=== PATIENT | male | born 1960 | race Caucasian/White ===

== ENCOUNTER → 2017-02-16 | Outpatient (CLI) | payer BC ==
[~2017-02-16] MED LIST: ACT/45 PO; ALLOPOW4 PO; AMIT50TA3 PO; ASPI81TA28 PO; ATOR-22 PO; CILO100T PO; CILO100T15 PO; GABA800T2 PO; GLC/500 PO; GLIM2TAB PO; METF1000 PO; METO-452 PO; METO50TA7 PO; MULTTAB PO; OMEP20TA PO; OXYC1TAB3 PO; SENNTAB23 PO
--- NOTE | 2017-02-16 09:47 | DIAGNOSTIC IMAGING REPORT ---
TWO VIEW CHEST CLINICAL HISTORY: Pneumonia. FINDINGS: PA and lateral chest radiographs are compared to study dated 09/04/2012. The cardiomediastinal silhouette is unremarkable. The lungs and pleural spaces are clear. There is no pneumothorax. The bony thorax appears intact. Degenerative change is noted throughout the thoracic spine. IMPRESSION: No active disease in the chest. Electronically signed by: Clyde White M.D. 02/16/2017 9:45 AM Dictated Date/Time: 02/16/2017 9:45 AM
== END | disposition home or self-care (01) ==
LOC: C.RAD1850 09:23
PROVIDERS: ATTEND Family Medicine
DX: J18.9 Pneumonia, unspecified organism (principal)

== ENCOUNTER 2017-03-21 11:57 | Emergency (ER) | payer OTHER, BC ==
[~2017-03-21] VITALS: Ht 177.8 cm; Wt 100.0 kg
[~2017-03-21 11:57] MED LIST changes: -ACT/45 PO; -ASPI81TA28 PO; -CILO100T PO; -GLC/500 PO; -METF1000 PO; -METO50TA7 PO; -OXYC1TAB3 PO; -SENNTAB23 PO
[2017-03-21 11:59] VITALS: TEMP 36.9; Ht 177.8 cm; Wt 100.0 kg
[2017-03-21] MEDS ORDERED: METO50TA7 PO (12:12)
[2017-03-21] MEDS ORDERED: CILO100T PO (12:12)
[2017-03-21] MEDS ORDERED: ACETAMINOPHEN 500 MG TAB PO STA (12:28)
[2017-03-21] MEDS ORDERED: GLC/500 PO (12:41)
[2017-03-21] MEDS ORDERED: SODIUM CHLORIDE 0.9% 1000ML 1,000 ML IV STA (13:08)
[2017-03-21] MEDS ORDERED: MoRPHine SULFATE 4 MG/ML 1 ML CARP\\VIAL IV STA (13:12)
[2017-03-21 13:40] VITALS: O2SAT 95
[2017-03-21 13:43] LABS: BASO % 0.2 %; BASO ABS # 0.03 K/uL (0-0.2); COMPLETE YES; HEMATOCRIT 40.7 % (42-52); IG% 0.4 %; LYMPH % 12.9 %; LYMPH ABS # 1.82 K/uL (1.2-3.4); MEAN CELL VOLUME 94.2 fL (80-100); MEAN CORPUSCULAR HEMOGLOBIN 33.3 pg (25-34); MEAN CORPUSCULAR HGB CONC 35.4 g/dl (32-36); MEAN PLATELET VOLUME 9.8 fL (7.4-10.4); MONO % 5.6 %; NEUT % 79.9 %; PLATELET COUNT 256 K/uL (130-400); RED BLOOD COUNT 4.32 M/uL (4.7-6.1); WHITE BLOOD COUNT 14.13 K/uL (4.8-10.8)
[2017-03-21 14:05] LABS: CALCIUM 8.5 mg/dl (8.5-10.1)
[2017-03-21 14:11] LABS: ALT/SGPT 38 U/L (12-78); BLOOD UREA NITROGEN 15 mg/dl (7-18); CARBON DIOXIDE 25 mmol/L (21-32); CHLORIDE 107 mmol/L (98-107); GLUCOSE 116 mg/dl (70-99); POTASSIUM 3.9 mmol/L (3.5-5.1); SODIUM 140 mmol/L (136-145)
[2017-03-21 14:16] LABS: ALKALINE PHOSPHATASE 53 U/L (45-117); AST/SGOT 31 U/L (15-37)
--- NOTE | 2017-03-21 14:45 | DIAGNOSTIC IMAGING REPORT ---
RIGHT ELBOW MIN 3 VIEWS ROUTINE CLINICAL HISTORY: fall, eval trauma Right trauma. Pain. COMPARISON: None. DISCUSSION: The bones and joint spaces appear intact. There is no evidence of fracture, dislocation or bony disease. There is no evidence for soft tissue swelling. IMPRESSION: Negative study. Electronically signed by: Geronimo Beebe M.D. 03/21/2017 2:43 PM Dictated Date/Time: 03/21/2017 2:43 PM
--- NOTE | 2017-03-21 14:47 | DIAGNOSTIC IMAGING REPORT ---
CHEST 2 VIEWS ROUTINE CLINICAL HISTORY: right rib pain, fall, eval trauma/rib fx trauma. Pain. COMPARISON STUDY: 02/16/2017 FINDINGS: Fracture right fifth rib. Fracture left sixth rib. No evidence of pneumothorax. Diaphragms are smooth. Moderate degenerative change thoracic spine. IMPRESSION: 1. Fracture right fifth rib. 2. Fracture left sixth rib. 3. No evidence for pneumothorax Electronically signed by: Geronimo Beebe M.D. 03/21/2017 2:46 PM Dictated Date/Time: 03/21/2017 2:44 PM
--- NOTE | 2017-03-21 14:50 | DIAGNOSTIC IMAGING REPORT ---
RIGHT SHOULDER 3 VIEWS HISTORY: Right shoulder pain. fall, eval trauma Right COMPARISON: Right shoulder 01/24/2016. FINDINGS: No fracture or dislocation within the right shoulder. The right clavicle is intact. There is a mild displaced right lateral fifth rib fracture. No right-sided pneumothorax identified. Soft tissues are unremarkable. No radiopaque foreign bodies. IMPRESSION: 1. No acute fracture or dislocation within the right shoulder. 2. Mildly displaced right lateral fifth rib fracture Electronically signed by: Pierre Javier M.D. 03/21/2017 2:49 PM Dictated Date/Time: 03/21/2017 2:42 PM
[2017-03-21 15:08] LABS: URINE APPEARANCE CLEAR (CLEAR); URINE BILIRUBIN NEG (NEG); URINE COLOR YELLOW; URINE NITRITE NEG (NEG); URINE SPECIFIC GRAVITY 1.019 (1.000-1.030); UROBILINOGEN NEG (NEG)
[2017-03-21 15:18] LABS: MANUAL MICROSCOPIC REQUIRED? NO; REVIEW REQ? NO
--- NOTE | 2017-03-21 15:55 | EMERGENCY ROOM VISIT NOTE ---
History First contact with patient: 12:12 Chief Complaint: FALL Stated Complaint: FELL OF LADDER,SHOULDER,RIB,BACK PAIN-WORK RELATED History of Present Illness The patient is a 56 year old male who presents to the Emergency Room with complaints of right-sided chest wall pain after a fall earlier today. Patient was up on a ladder at work, when he lost his balance and fell, approximately 5- 6 feet, striking his right side on a countertop, and then landing on top of the ladder on the floor. Patient was initially seen by another provider after his injury, who referred him to the emergency department to possibly have CT scans done. Patient reports his primary area of pain is the right side of his chest and middle back, he has associated shortness of breath and increased pain with taking a deep breath. He denies hitting his head, denies loss of consciousness , denies neck pain, denies abdominal pain, denies nausea/vomiting, denies dysuria or hematuria. He has not taken any medications for the pain prior to arrival. Review of Systems A complete 10 point review of systems was reviewed with the patient with pertinent positives and negatives as per history of present illness. All else were negative. Past Medical/Surgical History Medical Problems: (1) Benign hypertension (2) Diabetes mellitus Social History Smoking Status: Current Every Day Smoker Drug Use: none Marital Status: Housing Status: lives with significant other Occupation Status: employed Current/Historical Medications Scheduled Amitriptyline Hcl (Amitriptyline Hcl), 50 MG PO HS Atorvastatin (Lipitor), 20 MG PO HS Cilostazol (Pletal), 100 MG PO BID Gabapentin (Neurontin), 800 MG PO TID Glimepiride (Amaryl), 2 MG PO QAM Metformin Hcl (Glucophage), Unknown Dose PO BID Metoprolol Succ (Toprol Xl) (Toprol-Xl), 50 MG PO DAILY Omeprazole (Omeprazole), 20 MG PO DAILY Scheduled PRN Oxycodone Ir (Roxicodone Ir), 1-2 TAB PO Q6H PRN for Severe Pain Allergies Coded Allergies: Sulfamethoxazole w/Trimethoprim (Unverified Allergy, Severe, RASH, 03/21/17 ) Penicillins (Unverified Allergy, Unknown, ., 03/21/17) Physical Exam Vital Signs Date Time Temp Pulse Resp B/P (MAP) Pulse Ox O2 Delivery O2 Flow Rate FiO2 03/21/17 17:43 86 20 148/91 96 03/21/17 16:10 80 17 145/68 97 Room Air 03/21/17 13:51 81 18 142/71 97 Room Air 03/21/17 13:44 78 03/21/17 13:40 95 Room Air 03/21/17 13:40 95 Room Air 03/21/17 11:59 36.9 103 17 145/83 95 Room Air Physical Exam CONSTITUTIONAL: No acute distress, but appears to be in discomfort. Well appearing and well nourished. Alert and oriented X 4 with normal affect. HEENT: Normocephalic, atraumatic. Pupils equal, round and reactive to light, EOMI. TMs normal. Pharynx normal. Moist mucous membranes NECK: Supple, full active range of motion without discomfort. No midline tenderness to palpation of the cervical spine, no step-offs. RESPIRATORY: Clear to auscultation bilaterally with no wheezing, crackles, rhonchi or stridor. Equal expansion bilaterally. CARDIOVASCULAR: Regular rate and rhythm with no murmurs, rubs or gallops. Normal peripheral perfusion. No edema. CHEST WALL: Tenderness to palpation of the right chest wall diffusely, particularly the mid lateral chest wall. Tenderness to the sternum with palpation. No ecchymosis, no abrasions, no crepitus, no palpable rib fractures. GASTROINTESTINAL: Soft, tender to palpation bilateral upper quadrants, as well as diffuse generalized tenderness to the entire abdomen, no ecchymosis or abrasions noted to the abdominal wall, nondistended. Bowel sounds present in all quadrants. MUSCULOSKELETAL: Full range of motion of all joints without discomfort. Abrasion and tenderness over the right elbow, tenderness and abrasions to the right shoulder. INTEGUMENTARY: No rash or other significant dermatologic conditions noted. NEUROLOGIC: Cranial nerves II-XII grossly intact. No focal neurologic deficits noted. Normal motor function, normal sensation, normal speech, normal coordination, normal gait Medical Decision & Procedures ER Provider Diagnostic Interpretation: RIGHT SHOULDER 3 VIEWS HISTORY: Right shoulder pain. fall, eval trauma Right COMPARISON: Right shoulder 01/24/2016. FINDINGS: No fracture or dislocation within the right shoulder. The right clavicle is intact. There is a mild displaced right lateral fifth rib fracture. No right-sided pneumothorax identified. Soft tissues are unremarkable. No radiopaque foreign bodies. IMPRESSION: 1. No acute fracture or dislocation within the right shoulder. ----- RIGHT ELBOW MIN 3 VIEWS ROUTINE CLINICAL HISTORY: fall, eval trauma Right trauma. Pain. COMPARISON: None. DISCUSSION: The bones and joint spaces appear intact. There is no evidence of fracture, dislocation or bony disease. There is no evidence for soft tissue swelling. IMPRESSION: Negative study. ----- CHEST 2 VIEWS ROUTINE CLINICAL HISTORY: right rib pain, fall, eval trauma/rib fx trauma. Pain. COMPARISON STUDY: 02/16/2017 FINDINGS: Fracture right fifth rib. Fracture left sixth rib. No evidence of pneumothorax. Diaphragms are smooth. Moderate degenerative change thoracic spine. IMPRESSION: 1. Fracture right fifth rib. 2. Fracture left sixth rib. 3. No evidence for pneumothorax ------ ABDOMEN AND PELVIS CT WITH IV CONTRAST CT DOSE: HISTORY: right flank pain, abd pain, fall, eval trauma TECHNIQUE: Multiaxial CT images of the abdomen and pelvis were performed following the use of intravenous contrast. COMPARISON STUDY: None. FINDINGS: No pneumoperitoneum. No pneumatosis. Bilateral L5 spondylolysis with associated grade I anterolisthesis. Nondisplaced right lateral ninth rib fracture. The liver, spleen, adrenal glands, gallbladder, spleen, and kidneys are unremarkable. Moderate calcified plaque within the abdominal aorta and iliac arteries. Bladder is mildly distended. No bowel wall thickening or obstruction. Colonic diverticulosis. Normal appendix. IMPRESSION: Nondisplaced right lateral ninth rib fracture. No additional acute traumatic abnormalities within the abdomen or pelvis. ----- Final read of the chest CT faxed over and reviewed by myself, confirms fractures of the right fifth and ninth ribs, no evidence of mediastinal injury, no evidence of pneumothorax. Incidentally noted low suspicion clustered solid right upper lobe pulmonary nodules, the largest of which measures 3 mm in a low risk patient, no further follow-up is indicated. Laboratory Results 03/21/17 13:25 Red Blood Count 4.32, Mean Corpuscular Volume 94.2, Mean Corpuscular Hemoglobin 33.3, Mean Corpuscular Hemoglobin Concent 35.4, Mean Platelet Volume 9.8, Neutrophils (%) (Auto) 79.9, Lymphocytes (%) (Auto) 12.9, Monocytes (%) (Auto) 5.6, Eosinophils (%) (Auto) 1.0, Basophils (%) (Auto) 0.2, Neutrophils # (Auto) 11.30, Lymphocytes # (Auto) 1.82, Monocytes # (Auto) 0.79, Eosinophils # (Auto) 0.14, Basophils # (Auto) 0.03 03/21/17 13:25 Test 03/21/17 13:25 03/21/17 13:29 03/21/17 14:43 White Blood Count 14.13 K/uL (4.8-10.8) Red Blood Count 4.32 M/uL (4.7-6.1) Hemoglobin 14.4 g/dL (14.0-18.0) Hematocrit 40.7 % (42-52) Mean Corpuscular Volume 94.2 fL (80-100) Mean Corpuscular Hemoglobin 33.3 pg (25-34) Mean Corpuscular Hemoglobin Concent 35.4 g/dl (32-36) Platelet Count 256 K/uL (130-400) Mean Platelet Volume 9.8 fL (7.4-10.4) Neutrophils (%) (Auto) 79.9 % Lymphocytes (%) (Auto) 12.9 % Monocytes (%) (Auto) 5.6 % Eosinophils (%) (Auto) 1.0 % Basophils (%) (Auto) 0.2 % Neutrophils # (Auto) 11.30 K/uL (1.4-6.5) Lymphocytes # (Auto) 1.82 K/uL (1.2-3.4) Monocytes # (Auto) 0.79 K/uL (0.11-0.59) Eosinophils # (Auto) 0.14 K/uL (0-0.5) Basophils # (Auto) 0.03 K/uL (0-0.2) RDW Standard Deviation 43.8 fL (36.4-46.3) RDW Coefficient of Variation 12.8 % (11.5-14.5) Immature Granulocyte % (Auto) 0.4 % Immature Granulocyte # (Auto) 0.05 K/uL (0.00-0.02) Est Creatinine Clear Calc Drug Dose 69.8 ml/min Estimated GFR () 64.6 Estimated GFR (Non- 55.8 BUN/Creatinine Ratio 11.0 (10-20) Calcium Level 8.5 mg/dl (8.5-10.1) Total Bilirubin 0.3 mg/dl (0.2-1) Direct Bilirubin < 0.1 mg/dl (0-0.2) Aspartate Amino Transf (AST/SGOT) 31 U/L (15-37) Alanine Aminotransferase (ALT/SGPT) 38 U/L (12-78) Alkaline Phosphatase 53 U/L (45-117) Troponin I < 0.015 ng/ml (0-0.045) Total Protein 6.9 gm/dl (6.4-8.2) Albumin 3.7 gm/dl (3.4-5.0) Bedside Hemoglobin 14.3 g/dl (14.0-18.0) Bedside Hematocrit 42 % (42-52) Bedside Sodium 141 mEq/L (135-144) Bedside Potassium 4.2 mEq/L (3.3-5.0) Bedside Chloride 101 mEq/L (101-112) Bedside Total CO2 27 mEq/l (24-31) Anion Gap 18.0 mmol/L (16-25) Bedside Blood Urea Nitrogen 16 mg/dl (7-18) Bedside Creatinine 1.3 mg/dl (0.6-1.3) Bedside Glucose (other) 122 mg/dl (70-99) Bedside Ionized Calcium (Michelle) 1.20 mmol/l (1.12-1.32) Urine Color YELLOW Urine Appearance CLEAR (CLEAR) Urine pH 5.0 (4.5-7.5) Urine Specific [place] 1.019 (1.000-1.030) Urine Protein 2+ (NEG) Urine Glucose (UA) NEG (NEG) Urine Ketones NEG (NEG) Urine Occult Blood NEG (NEG) Urine Nitrite NEG (NEG) Urine Bilirubin NEG (NEG) Urine Urobilinogen NEG (NEG) Urine Leukocyte Esterase NEG (NEG) Urine WBC (Auto) 1-5 /hpf (0-5) Urine RBC (Auto) 0-4 /hpf (0-4) Urine Hyaline Casts (Auto) 1-5 /lpf (0-5) Urine Epithelial Cells (Auto) 5-10 /lpf (0-5) Urine Bacteria (Auto) NEG (NEG) Medications Administered Medications (Trade) Dose Ordered Sig/Jessica Route Start Time Stop Time Status Last Admin Dose Admin Acetaminophen (Tylenol Tab) 1,000 mg NOW STAT PO 03/21/17 12:28 03/21/17 12:30 DC 03/21/17 12:37 1,000 MG Sodium Chloride 1,000 ml @ 999 mls/hr Q1H1M STAT IV 03/21/17 13:08 03/21/17 14:08 DC 03/21/17 13:57 999 MLS/HR Morphine Sulfate (MoRPHine SULFATE INJ) 4 mg NOW STAT IV 03/21/17 13:12 03/21/17 13:13 DC 03/21/17 13:58 4 MG Morphine Sulfate (MoRPHine SULFATE INJ) 6 mg NOW STAT IV 03/21/17 16:40 03/21/17 16:41 DC 03/21/17 16:46 6 MG Oxycodone/ Acetaminophen (Percocet 5-325mg Tab) 2 tab NOW ONCE PO 03/21/17 17:30 03/21/17 17:31 DC 03/21/17 17:39 2 TAB Medical Decision CC: Patient presenting with complaint of right-sided chest wall pain Interpretation of Labs: Leukocytosis, no anemia, no significant joint abnormalities, renal function at baseline compared to previous labs, liver enzymes within normal limits, no gross hematuria or UTI. Differential Diagnosis: Includes, but not limited to rib fractures, chest wall contusion, pulmonary contusion, pneumothorax, hemothorax, intra-abdominal hemorrhage due to trauma, among others. Medication Reconciliation: I attest that I have personally reviewed the patient' s current medication list. Vital signs review: I reviewed the patient's vital signs and interpret them as follows: T: Afebrile; BP: Hypertensive; HR: Mildly tachycardic initially, improved after IV hydration; RR: Within normal limits; Pulse Ox: Within normal limits on room air. Blood pressure screening: The patient was found to have an elevated blood pressure and was referred to their primary doctor for recheck and further treatment. Summary: Patient was evaluated at bedside, history of physical exam performed. Patient initially evaluated in room D6, after evaluation, determined a trauma workup was necessary and patient was transferred to room A11. Patient is alert and oriented, no acute distress but does appear uncomfortable and in pain, holding his right side. Neurologic exam is normal with no focal deficits. Head to toe exam reveals significant right-sided chest wall tenderness to palpation, sternal tenderness, and bilateral upper quadrant abdominal tenderness with diffuse abdominal discomfort to palpation. Vital signs reviewed, mild tachycardia, normotensive and oxygen saturations within normal limits on room air. Orders were placed at bedside for labs, UA, IV fluids, CT of the chest/abdomen/ pelvis as well as plain images to evaluate for trauma. Patient discussed with Dr. Padilla, who agrees with my assessment and plan. Labs reviewed, leukocytosis most likely secondary to trauma. No other significant abnormalities noted. X-rays of the shoulder and elbow reviewed, no acute abnormalities. Chest x-ray shows bilateral rib fractures, this is confirmed with CT imaging. No other significant traumatic injuries noted. Patient with right fifth and ninth rib fracture and left sixth rib fracture. Pain improving with IV pain medications, and he was given Percocet prior to discharge. Patient was instructed to follow closely with his PCP and Workmen's Compensation for continued management of his rib fracture pain. Prescription for oxycodone was provided to patient and he was instructed on its use and precautions. Patient reassessed multiple times throughout ED stay, he remained stable and improved, pain improved with medication. Patient was discharged home in stable condition and ambulatory. Impression Primary Impression: Multiple fractures of ribs of both sides Departure Information Dispostion Home / Self-Care Condition GOOD Prescriptions Oxycodone Ir (Roxicodone Ir) 5 Mg Tab 1-2 TAB PO Q6H Y for Severe Pain for 3 Days, #24 TAB Prov: Sabi Quigley CRNP 03/21/17 Referrals Herrera Galloway MD (PCP) Patient Instructions ED Fx Rib, My [facility] Additional Instructions You have been treated in the Emergency Department for Rib Fractures after a fall. You have received pain medicine in the emergency department which impairs your ability to operate a vehicle. It is illegal for you to drive after receiving these medicines. You have been prescribed Oxycodone to be used for pain control. This is a narcotic medication. You cannot drive or consume alcohol while on this medicine. This medicine should only be used for pain that cannot be controlled with [id number] pain medicines. For pain control, you can use the following [id number] medicines (if >12 yo): - Extra strength (500mg/tab) Tylenol (acetaminophen) 1-2 tabs every 6-8 hours as needed. Do not exceed 6 tablets in a 24 hour period. Avoid taking more than 3 grams (3000 mg) of Tylenol per day. This includes any other sources of acetaminophen you may take on a regular basis. - Regular strength (200 mg/tab) Advil (ibuprofen) 1-2 tabs every 4-6 hours as needed. Do not exceed a dose of 3200 mg per day. If this is an acute injury, ice can be applied to the area of pain for the first 3 days to help decrease pain and inflammation. After the first 3 days, a heating pad can be used over the area for continued soothing relief. To minimize your discomfort, you can hug a pillow while coughing or sneezing. Additionally, you should continue to force yourself to take nice, deep breaths. Full expansion of the lungs is necessary to prevent the accumulation of fluid in the lung tissue and development of pneumonia. You should schedule a follow-up appointment in 2-3 days with your Primary Care Provider for further evaluation and treatment of your back pain. You should also discuss with your PCP regarding the nodules that were noted on your CT scan of your chest today. We would recommend an optional repeat chest CT in 12 months to reassess the nodules in your right upper lobe. Return to the Emergency Department if your current symptoms worsen despite treatment course outlined above, or if you develop any of the following symptoms : intractable pain despite above treatment course, development of a wet cough, bloody cough, fever, chills, or increased shortness of breath. Work Instructions Return To Work: 5 days Specific Date: 03/26/2017 Additional Work Instructions: You may return to work at the discretion of your employer. You should follow-up with Workmen's Compensation as indicated and directed by your employer. Avoid any heavy lifting or twisting motions of the torso for the next 2 weeks while your rib fractures are healing. Problem Qualifiers Primary Impression: Multiple fractures of ribs of both sides Encounter type: initial encounter Fracture type: closed Qualified Codes: S22.43XA - Multiple fractures of ribs, bilateral, initial encounter for closed fracture
--- NOTE | 2017-03-21 16:16 | DIAGNOSTIC IMAGING REPORT ---
ABDOMEN AND PELVIS CT WITH IV CONTRAST CT DOSE: HISTORY: right flank pain, abd pain, fall, eval trauma TECHNIQUE: Multiaxial CT images of the abdomen and pelvis were performed following the use of intravenous contrast. COMPARISON STUDY: None. FINDINGS: No pneumoperitoneum. No pneumatosis. Bilateral L5 spondylolysis with associated grade I anterolisthesis. Nondisplaced right lateral ninth rib fracture. The liver, spleen, adrenal glands, gallbladder, spleen, and kidneys are unremarkable. Moderate calcified plaque within the abdominal aorta and iliac arteries. Bladder is mildly distended. No bowel wall thickening or obstruction. Colonic diverticulosis. Normal appendix. IMPRESSION: Nondisplaced right lateral ninth rib fracture. No additional acute traumatic abnormalities within the abdomen or pelvis. Electronically signed by: Pierre Javier M.D. 03/21/2017 4:14 PM Dictated Date/Time: 03/21/2017 4:09 PM
[2017-03-21 16:31] LABS: ISTAT CREATININE 1.3 mg/dl (0.6-1.3); ISTAT HEMOGLOBIN 14.3 g/dl (14.0-18.0); ISTAT IONIZED CALCIUM 1.2 mmol/l (1.12-1.32)
[2017-03-21] MEDS ORDERED: MoRPHine SULFATE 10 MG/ML CARP/VIAL IV STA (16:40)
[2017-03-21] MEDS ORDERED: OXYC1TAB3 PO (17:19)
[2017-03-21] MEDS ORDERED: OXYCODONE/ACETAMINOPHEN 5-325 TAB PO ONE (17:30)
[2017-03-21 17:43] VITALS: BP 148/91; PULSE 86; O2SAT 96
--- NOTE | 2017-03-22 06:32 | DIAGNOSTIC IMAGING REPORT ---
CT OF THE CHEST WITH IV CONTRAST CLINICAL HISTORY: Right-sided chest pain status post trauma COMPARISON STUDY: Chest x-ray dated 03/21/2017 TECHNIQUE: Following the IV administration of 116 mL of Optiray-320, CT of the thorax was performed from the thoracic inlet to the lung bases. Images are reviewed in the axial, sagittal, and coronal planes. IV contrast was administered without complication. CT DOSE: 1226.54 mGy.cm FINDINGS: Thyroid: There are multiple bilateral thyroid nodules measuring up to 12 mm in diameter. Thoracic aorta: The thoracic aorta is normal in course and caliber, noting standard 3-vessel arch anatomy. No aneurysm or dissection is seen. Pulmonary vasculature: The pulmonary trunk is normal in caliber. There are no central filling defects identified to suggest pulmonary embolus. Note that this examination was not protocoled for the evaluation of pulmonary emboli. HEART: There are coronary artery calcifications present. There is no pericardial effusion. Lungs and pleural spaces: There is no pneumothorax. There are no significant pleural effusions. There are mild dependent atelectatic changes. There are clustered solid right upper lobe pulmonary nodules, the largest of which measures 3 mm. Mediastinum: There is no evidence of pathologic adenopathy. There is no evidence of mediastinal hematoma. [place]: There is no evidence of pathologic adenopathy. Axilla: Clear. Upper abdomen: Partially visualized upper abdominal viscera is within normal limits. Skeletal structures: There are fractures of the right fifth and ninth posterior lateral ribs. IMPRESSION: 1. Acute fractures of the right fifth and ninth ribs 2. No evidence of mediastinal injury 3. No evidence of pneumothorax 4. Low suspicion clustered solid right upper lobe pulmonary nodules, the largest of which measures 3 mm. In a low risk patient, no further follow-up is indicated. Please refer to below summary of Fleischner criteria recommendations for follow-up of incidental CT nodules (Marlena Kamara, Guidelines for management of small pulmonary nodules detected on CT scans: A statement from the Fleischner Society, Radiology 237: [phone].) SOLID NODULES Solitary nodule size: <6 mm * low risk patients: no follow-up needed * high risk patients: optional CT at 12 months Solitary nodule size: 6-8 mm * low risk patients: follow-up at 6-12 months, then consider further follow-up at 18-24 months * high risk patients: initial follow-up CT at 6-12 months and then at 18-24 months if no change Solitary nodule size: >8 mm * either low or high risk patients - consider follow-up CT at 3 months, and/or CT-PET, and/or biopsy Multiple nodules size: <6 mm * low risk patients: no routine follow-up * high risk patients: optional CT at 12 months Multiple nodules size: 6-8 mm * low risk patients: follow-up at 3-6 months, then consider further follow-up at 18-24 months * high risk patients: follow-up at 3-6 months, then at 18-24 months if no change Multiple nodules size: >8 mm * low risk patients: follow-up at 3-6 months, then consider further follow-up at 18-24 months * high risk patients: follow-up at 3-6 months, then at 18-24 months if no change Note: newly detected indeterminate nodule in persons 35 years of age or older. * low risk patients: minimal or absent history of smoking and/or other known risk factors * high risk patients: history of smoking or of other known risk factors (e.g. first degree relative with lung cancer, or exposure to asbestos, radon, uranium) * if a nodule up to 8 mm is partly solid or is ground glass further follow-up is required after 24 months to exclude possible slow growing adenocarcinoma (JESUS MANUEL) SUBSOLID NODULES Solitary pure ground-glass nodule * nodule size <6 mm - no CT follow-up required * nodule size >=6 mm - follow-up CT at 6-12 months, then every 2 years until 5 years Solitary part-solid nodule * nodule size <6 mm - no CT follow-up required * nodule size >=6 mm - follow-up CT at 3-6 months. If unchanged, and solid component remains <6 mm, then annual follow-up for 5 years Multiple subsolid nodules * nodule size <6 mm - follow-up CT at 3-6 months, consider further follow-up at 2 and 4 years if stable * nodule size >=6 mm - follow-up CT at 3-6 months, subsequent management based on the most suspicious nodule(s) Electronically signed by: Chin Leonardo M.D. 03/22/2017 6:30 AM Dictated Date/Time: 03/21/2017 4:09 PM
[2017-06-22] MEDS ORDERED: ACT/45 PO (07:43)
[2017-06-22] MEDS ORDERED: METF1000 PO (07:43)
[2017-07-03] MEDS ORDERED: ASPI81TA28 PO (08:29)
== END 2017-03-21 17:47 | disposition home or self-care (01) ==
LOC: C.EDB 11:58 → C.EDA 17:47
DX: S22.43XA Multiple fractures of ribs, bilateral, initial encounter for closed fracture (principal); W11.XXXA Fall on and from ladder, initial encounter; Y92.89 Other specified places as the place of occurrence of the external cause; Y99.0 Civilian activity done for income or pay; I10 Essential (primary) hypertension; E11.9 Type 2 diabetes mellitus without complications; F17.210 Nicotine dependence, cigarettes, uncomplicated; Z79.899 Other long term (current) drug therapy

== ENCOUNTER 2017-03-24 08:47 | Emergency (ER) | payer OTHER, BC ==
[~2017-03-24 08:47] MED LIST changes: -ALLOPOW4 PO; +CILO100T PO; -CILO100T15 PO; +GLC/500 PO; -METO-452 PO; +METO50TA7 PO; -MULTTAB PO; +OXYC1TAB3 PO
[2017-03-24 08:49] VITALS: TEMP 36.7; Ht 177.8 cm
[2017-03-24] MEDS ORDERED: MoRPHine SULFATE 10 MG/ML CARP/VIAL IM STA ×2 (09:06→10:10)
--- NOTE | 2017-03-24 09:12 | EMERGENCY ROOM VISIT NOTE ---
History Report prepared by Mary: Madison Soriano Under the Supervision of: Dr. aZc Covarrubias M.D. First contact with patient: 08:59 Chief Complaint: RIB PAIN Stated Complaint: FELL AND BROKE RIBS, CONSTIPATION History of Present Illness The patient is a 56 year old male who presents to the Emergency Room with complaints of constant rib pain beginning 3 days ago. The patient states that he was seen here 3 days ago and was diagnosed with multiple rib fractures after falling off of a ladder. He reports that he was prescribed oxycodone and has had no relief of his symptoms. The patient complains of leg pain and bruising from his fall, tightness with breathing, and constipation. He notes that his last bowel movement was 3 days ago. He rates his pain as a 9/10 in severity. The patient notes that he skipped some of his pain medication to avoid constipation and he is now in severe pain. Source of History: patient Onset: 3 days ago Position: other (rib) Symptom Intensity: 9/10 Timing: constant Note: Pt complains of constipation, tightness with breathing, and leg pain and bruising. Review of Systems All systems have been listed, reviewed, and are negative other than those previously mentioned. Please see Additional Medical History Sheet. Past Medical & Surgical Medical Problems: (1) Benign hypertension (2) Diabetes mellitus Family History No pertinent family history stated. Social History Smoking Status: Current Every Day Smoker Drug Use: none Marital Status: Housing Status: lives with significant other Occupation Status: employed Current/Historical Medications Scheduled Atorvastatin (Lipitor), 20 MG PO HS Cilostazol (Pletal), 100 MG PO BID Gabapentin (Neurontin), 800 MG PO TID Glimepiride (Amaryl), 2 MG PO QAM Metformin Hcl (Glucophage), Unknown Dose PO BID Metoprolol Succ (Toprol Xl) (Toprol-Xl), 50 MG PO DAILY Omeprazole (Omeprazole), 20 MG PO DAILY Scheduled PRN Oxycodone Ir (Roxicodone Ir), 1-2 TAB PO Q6H PRN for Severe Pain Sennosides-Docusate Sodium (Stool Softener), 2 TABS PO UD PRN for Constipation Allergies Coded Allergies: Sulfamethoxazole w/Trimethoprim (Unverified Allergy, Severe, RASH, 03/24/17 ) Penicillins (Unverified Allergy, Unknown, ., 03/24/17) Physical Exam Vital Signs Date Time Temp Pulse Resp B/P (MAP) Pulse Ox O2 Delivery O2 Flow Rate FiO2 03/24/17 11:09 82 20 137/92 97 Room Air 03/24/17 08:49 36.7 86 20 181/86 96 Room Air Physical Exam GENERAL: Patient awake, alert, oriented x 3. Patient follows commands. Patient does not appear toxic. Patient is adequately hydrated and well- nourished. SKIN: No erythema, pallor, cyanosis or rash HEENT: Normal head, pupils equal, reactive to light and accommodation. Ears normal. Oral cavity and posterior pharynx appear normal. Neck: Without adenopathy, no neck vein distention. LUNGS: Patient is taking very shallow breaths. No wheezes, no rales, no rhonchi. HEART: No murmurs. No gallops. No rubs ABDOMEN: Soft, obese, nontender. EXTREMITIES: No signs of trauma. No pedal or pretibial edema. No calf or thigh tenderness. Large ecchymosis on the inside of the left thigh. Ecchymosis under the right axilla. NEUROLOGIC: Cranial nerves II-XII within normal limits. No gross motor sensory function deficits. Medical Decision & Procedures ER Provider Diagnostic Interpretation: X ray results are stated below per my interpretation and the radiologist's interpretation. TWO VIEW CHEST FINDINGS: PA and lateral chest radiographs are compared to chest x-ray and chest CT dated 03/21/2017. The cardiomediastinal heart is top normal for projection. The pulmonary vasculature is noncongested. Linear atelectasis is noted in the left lower lung. The lungs and pleural spaces are otherwise clear. There is no pneumothorax. Bilateral rib fractures are again noted. Right posterior fifth and ninth rib fractures are similar to previous, as is a left posterior 6 rib fracture. Right posterior sixth and seventh rib fractures were not definitely seen previously. Degenerative change is seen throughout the thoracic spine. IMPRESSION: 1. Bilateral rib fractures are again noted. Right posterior sixth and seventh rib fractures appear new from 03/21/2017. 2. There is no airspace consolidation, pleural effusion, or pneumothorax. Electronically signed by: Clyde White M.D. 03/24/2017 9:46 AM Dictated Date/Time: 03/24/2017 9:37 AM Medications Administered Medications (Trade) Dose Ordered Sig/Jessica Route Start Time Stop Time Status Last Admin Dose Admin Morphine Sulfate (MoRPHine SULFATE INJ) 10 mg NOW STAT IM 03/24/17 09:06 03/24/17 09:10 DC 03/24/17 09:06 10 MG Polyethylene (Miralax Powder Packet) 17 gm NOW ONCE PO 03/24/17 09:15 03/24/17 09:16 DC 03/24/17 09:15 17 GM Morphine Sulfate (MoRPHine SULFATE INJ) 8 mg NOW STAT IM 03/24/17 10:10 03/24/17 10:11 DC 03/24/17 10:10 8 MG ED Course 0859: Past medical records reviewed. The patient was evaluated in room A9. A complete history and physical examination was performed. 0906: Morphine Sulfate 10mg IM. 0915: Polyethylene 17gm PO. 1010: Morphine Sulfate 8mg IM. 1125: Upon reevaluation, the patient appeared to have improvement of his symptoms. I discussed today's findings with the patient. He verbalized agreement of the treatment plan. The patient was discharged home. Medical Decision Differential diagnosis includes opioid induced constipation, recent rib fractures, multiple contusions. The patient has suffered a recent rib fractures. He is now complaining of constipation. The patient was given MiraLAX here and will continue that medication at home until he has a good bowel movement. Chest x-ray was repeated today revealed additional fractures. The patient was medicated. He will attempt to use as little narcotics at home as possible. The patient's blood pressure is slightly elevated most likely due to pain. He was instructed to follow-up with his family physician regarding blood pressure, constipation and rib fractures. Medication Reconciliation: I attest that I have personally reviewed the patient' s current medication list. Blood Pressure Screening: Patient was found to have an elevated blood pressure and was referred to their primary doctor for recheck and further treatment. Impression Primary Impression: Constipation due to pain medication Additional Impression: Multiple rib fractures Scribe Attestation The scribe's documentation has been prepared under my direction and personally reviewed by me in its entirety. I confirm that the note above accurately reflects all work, treatment, procedures, and medical decision making performed by me. Departure Information Dispostion Home / Self-Care Referrals Herrera Galloway MD (PCP) Forms HOME CARE DOCUMENTATION FORM, IMPORTANT VISIT INFORMATION, WORK / SCHOOL INSTRUCTIONS Patient Instructions ED Fx Rib, My [facility], Polyethylene Glycol powder Additional Instructions Use as little pain medication as possible. Take an additional dose of MiraLAX today at 4 PM if you have not yet had a bowel movement. You should take another dose tomorrow morning if you still have not yet had a bowel movement. Follow-up with your family physician regarding constipation, rib fractures and elevated blood pressure within the next 10 days. Problem Qualifiers
[2017-03-24] MEDS ORDERED: POLYETHYLENE (MIRALAX) 17 GM PACK PO ONE (09:15)
--- NOTE | 2017-03-24 09:47 | DIAGNOSTIC IMAGING REPORT ---
TWO VIEW CHEST CLINICAL HISTORY: Rib fracture. FINDINGS: PA and lateral chest radiographs are compared to chest x-ray and chest CT dated 03/21/2017. The cardiomediastinal heart is top normal for projection. The pulmonary vasculature is noncongested. Linear atelectasis is noted in the left lower lung. The lungs and pleural spaces are otherwise clear. There is no pneumothorax. Bilateral rib fractures are again noted. Right posterior fifth and ninth rib fractures are similar to previous, as is a left posterior 6 rib fracture. Right posterior sixth and seventh rib fractures were not definitely seen previously. Degenerative change is seen throughout the thoracic spine. IMPRESSION: 1. Bilateral rib fractures are again noted. Right posterior sixth and seventh rib fractures appear new from 03/21/2017. 2. There is no airspace consolidation, pleural effusion, or pneumothorax. Electronically signed by: Clyde White M.D. 03/24/2017 9:46 AM Dictated Date/Time: 03/24/2017 9:37 AM
[2017-03-24] MEDS ORDERED: SENNTAB23 PO (09:48)
[2017-03-24 11:09] VITALS: BP 137/92; PULSE 82; O2SAT 97
[2017-06-22] MEDS ORDERED: ACT/45 PO (07:43)
[2017-06-22] MEDS ORDERED: METF1000 PO (07:43)
[2017-07-03] MEDS ORDERED: ASPI81TA28 PO (08:29)
== END 2017-03-24 11:48 | disposition home or self-care (01) ==
LOC: C.EDB 08:48 → C.EDA 11:48
DX: K59.03 Drug induced constipation (principal); S22.43XD Multiple fractures of ribs, bilateral, subsequent encounter for fracture with routine healing; W11.XXXD Fall on and from ladder, subsequent encounter; I10 Essential (primary) hypertension; E11.9 Type 2 diabetes mellitus without complications; F17.210 Nicotine dependence, cigarettes, uncomplicated; Z79.899 Other long term (current) drug therapy

== ENCOUNTER → 2017-07-03 | Day surgery (SDC) | payer OTHER, BC ==
[2017-06-22 07:44] VITALS: Ht 177.8 cm; Wt 92.3 kg
[~2017-07-03] VITALS: Ht 177.8 cm; Wt 92.3 kg
[~2017-07-03] MED LIST changes: +ACT/45 PO; -AMIT50TA3 PO; +ASPI81TA28 PO; +ATROPINE SULFATE 0.1 MG/ML 5ML SYR IV PRN; +CEFAZOLIN 2000 MG/60 ML D5W IV SCH; +DEXAMETHASONE SOD INJ 4 MG/ML VIAL ONE; +EpINEphrine HCL INJ 1 MG/ML 5ML SYRINGE ONE; +FENTANYL CITRATE INJ 50 MCG/1 ML 2 ML VIAL IV PRN; +FENTANYL CITRATE INJ 50 MCG/1 ML 2 ML VIAL ONE; -GLC/500 PO; +KETOROLAC TROMETHAMINE 30 MG/ML VIAL IV. PRN; +LABETALOL HCL IV 5 MG/ML 20ML IV PRN; +LACTATED RINGER'S 1000ML 1,000 ML IV SCH; +LIDOCAINE HCL 2% 2 ML VIAL (20MG/ML) ONE; +METF1000 PO; +MIDAZOLAM HCL 1 MG/ML 2ML VIAL ONE; +ONDANSETRON INJ 2 MG/ML 2 ML VIAL IV PRN; +ONDANSETRON INJ 2 MG/ML 2 ML VIAL ONE; -OXYC1TAB3 PO; +OXYCODONE/ACETAMINOPHEN 5-325 TAB PO PRN; +PROPOFOL IV EMULSION 10 MG/ML 20 ML VIAL IV ONE; +ROPIVACAINE 0.5% 5 MG/ML 30 ML VIAL ONE; +SENNTAB23 PO; +SODIUM CHLORIDE 0.9% 1000ML 1,000 ML IV SCH
--- NOTE | 2017-07-03 08:42 | History & Physical Bridge Note ---
H&P Re-Evaluation Bridge Note: I have examined the patient, reviewed the History & Physical and in the interval since the performance of the History & Physical I have noted the following changes of clinical significance: consent reviewed.No changes noted
--- NOTE | 2017-07-03 08:44 | Discharge Instructions ---
Discharge Instructions Date of Service Jul 03, 2017. Visit Reason for Visit: Right Shoulder Rotator Cuff Tear With Impingement Discharge Discharge Diagnosis / Problem: impingement/rotator cuff tear Discharge Goals Goal(s): Decrease discomfort, Improve function, Increase independence Medications Stopped Medications Name(s): glucaphage - last dose sunday 07/01 Activity Recommendations Activity Limitations: as noted below Lifting Limitations: until after follow-up appointment Exercise/Sports Limitations: until after follow-up appointment May Resume Sexual Activity: when tolerated Shower/Bathe: keep incision dry Driving or Machine Use: Anesthesia . Post Anesthesia Instructions: If you have had General Anesthesia or IV Sedation: * Do not drive today. * Resume driving when surgeon permits. * Do not make important decisions or sign legal documents today. * Call surgeon for: 1. Temperature elevations greater than 101 degrees F. 2. Uncontrollable pain. 3. Excessive bleeding. 4. Persistent nausea and vomiting. 5. Medication intolerance (nausea, vomiting or rash). * For nausea and vomiting use only clear liquids such as: tea, soda, bouillon until nausea subsides, then gradually increase diet as tolerated. * If you have any concerns or questions, call your surgeon's office. If physician is unavailable and it is an emergency, call 911 or go to the nearest emergency room. . Instructions / Follow-Up Instructions / Follow-Up The following are instructions to follow after "Shoulder Surgery" including, Acromioplasty, Rotator Cuff Repair and Instability Surgery ACTIVITY RECOMMENDATIONS: * Minimize activity after surgery. * No excessive walking, jogging, sports or laboring. * Return to activity is individualized depending on the patient and type of surgery. * Driving is not permitted until at least your first post operative visit. Please ask your doctor when it is safe to resume driving. * Expect increased discomfort with increased activity. Continue to ice the shoulder as needed. SCHOOL/WORK RECOMMENDATIONS: * You may return to sedentary work or school when you are feeling more comfortable. This is usually 3-7 days after surgery. MEDICATIONS: * You will have a prescription for pain medication and an anti-inflammatory medication after surgery. * Use the pain medication for severe pain and the anti-inflammatory for less severe pain. Once the pain medication has run out, try to use the anti-inflammatory medication. If this is not effective, contact the office for assistance. * The pain medication may cause nausea, constipation and drowsiness. You should see how they affect you before driving or similar activity. * The anti-inflammatory medication may cause stomach upset and bleeding. If this occurs let your doctor know immediately . * Take a stool softener like Colace or a laxative like Senokot to prevent constipation. DIET: * Resume previous diet. SPECIAL CARE: ICE: You have the option of an ice cooler, gel packs or ice bags. * If you have an ice cooler, refer to the instructions for that device. The ice cooler may be used continuously. * If you do not have an ice cooler, you will need to use ice bags or gel packs. Do not apply ice directly to the skin. Use a thin dressing or maribel shirt between the skin and ice bag. Apply ice for 20-30 minutes and repeat every 2-4 hours. This is especially important for the first 7-10 days after surgery. Once the pain improves, use ice as needed. ELEVATION: * You may be more comfortable sleeping in an upright position. Use the sling to elevate your arm. DRESSING: * Your dressing will be changed at your first therapy appointment approximately 4-5 days after surgery. Band-aids, tape strips or gauze may be applied. You may then change your dressing daily. * Reapply dressing followed by the EBIce cooling pad (if chosen) and then the sling. * Always wash your hands prior to touching the incision area. * Once the stitches are removed, you may leave the wound open to air or cover with gauze. * Expect some bloody drainage for the first few days after surgery. * Leave the tape strips, if present, in place for 5-7 days. * Band-aids and gauze may be changed daily. * There may be a gauze pad in your armpit area. This can be changed daily or replaced by a dry washcloth. SLING/BRACE: * You will need to use a sling or brace after surgery. The length of time the sling is used is dependent upon the type of surgery performed. * Arthroscopic Acromioplasty requires use of the sling for 2-4 weeks for comfort. * Labral procedures and Rotator Cuff Repairs require use of the sling for a longer period of time. Please check with your doctor prior to discontinuing the sling. BATHING: * You may shower or sponge-bathe immediately after surgery. The post operative shoulder dressing is mostly water-tight. You may shower right over this dressing, but be reasonably careful not to get the gauze or incision wet. * Once the dressing has been changed on the fourth or fifth day after surgery, you may shower and get the incision wet. * Wash with regular soap and water. * Do not bathe (submerge the incision), soak, swim or use a hot tub until the incision is completely healed over with normal skin and the doctor has given the OK to proceed. * There is no need to apply any ointments, powders or salves to your incision. * Do not apply alcohol or hydrogen peroxide directly to the incision. * Diluted peroxide (50:50 mixture with sterile saline) may be used to clean dried blood from around the incision area. THERAPY: * You will begin therapy four or five days after surgery. * Organized therapy with the therapist is important for the first 2-4 months after surgery depending on the type of procedure. During that time you will attend therapy 1-3 times per week. * You will also need to do daily exercises for range of motion and strength as instructed. * Patients who have a Capsular Shift Procedure will need to abide by temporary range of motion limitations. * Patients having Rotator Cuff Surgery are not allowed to actively lift their arms until 4-6 weeks after surgery. * Please check with your doctor regarding appropriate motion restrictions. FOLLOW UP VISIT: * If not already scheduled, please call the office at to schedule a follow-up appointment for 10 days after surgery and monthly thereafter. Diet Recommendations Recommended Home Diet: resume previous diet, diabetes diet Procedures Procedures Performed: see op note Pending Studies Studies pending at discharge: no Medical Emergencies . Who to Call and When: Medical Emergencies: If at any time you feel your situation is an emergency, please call 911 immediately. . Non-Emergent Contact Non-Emergency issues call your: Specialist Call Non-Emergent contact if: temperature is above 101.5, wound has increased drainage, wound has increased redness, wound has increased pain . . "Provider Documentation" section prepared by Guanako Haro. .
--- NOTE | 2017-07-03 12:38 | [facility] Post Operative Brief Note ---
Immediate Operative Summary Operative Date Jul 03, 2017. Pre-Operative Diagnosis Right shoulder rotator cuff tear with impingement Post-Operative Diagnosis Same as preop Procedure(s) Performed see op note Surgeon Dr. Haro [employer] Specialist Surgeon(s) Dr. Scotty Tran and Edgar Santacruz PA-C Estimated Blood Loss trace Findings small cuuf tear/long head tear/labral and articular degeneration Fluids (cc crystalloids) 1100cc Specimens None Drains none Anesthesia LMA/block Complication(s) None Disposition Recovery Room / PACU
--- NOTE | 2017-07-03 12:56 | OPERATIVE REPORT ---
DATE OF OPERATION: 07/03/2017 PREOPERATIVE DIAGNOSES: Impingement syndrome, labral degeneration, and small rotator cuff tear. POSTOPERATIVE DIAGNOSES: Same. OPERATION PERFORMED: 1. Exam under anesthesia. 2. Diagnostic arthroscopy. 3. Arthroscopic chondroplasty, debridement of glenohumeral joint release of scar tissue anteriorly on the torn biceps. 4. Revision subacromial decompression with bursectomy. 5. Rebend and repair of small rotator cuff tear with 2475 anchors. PERIOPERATIVE SITUATION: Medically cleared male with intractable shoulder pain with physical exam, x-ray and MRI scan consistent with tear. This was in the rotator cuff and the labrum. Exam under anesthesia did not reveal any instability. DESCRIPTION OF PROCEDURE: The patient appropriately identified, site verified, consent verified, 2 grams of Ancef confirmed as being given. The shoulder was examined revealing no instability. He had no significant contracture. He was then placed in a beach chair position and sterilely prepped and draped in usual routine fashion. A posterior portal made 2 cm posterior and medial to the posterolateral tip of the acromion and anterior portal made just off the edge of the AC joint. The shoulder was entered. The biceps was torn, there was marked scarring in the coracohumeral ligament, this was all debrided. The subscap was intact. There was chondral disease in the inferior central glenoid. This was debrided. There was a large flap. This was debrided. The labrum was then contoured with the shaver and with the thermal device. The area of the anterior rotator cuff injury was noted on the articular side. This was lightly debrided. The subacromial space was then entered after no additional pathology found and the bursa debrided. The revision acromioplasty performed with gentle and minimal removal of bone contouring mostly the anterolateral and lateral edge of the acromion. The rotator cuff tissue was then identified, it was debrided easily with the shaver was very degenerated, it converted the pasta lesion to full thickness lesion for about a cm. This area was then cleansed up with the thermal device, shaver and two 4.7 anchors were placed. The scorpion was utilized as well as a tight left. This grabbed the tissue nicely. The repair was good. movement of the shoulder reveal that the repair did not retract. The procedure was then terminated, all instruments and fluid removed. It should be mentioned that one of the anchors had about 3/4 of it fully engaged, 1/4 not engaged that part not in the bone was removed. The additional anchor was then placed after that, both anchors held nicely and there was good tension on both sutures. Again, this was before and after moving the shoulder. The procedure was then terminated. All instruments and fluid removed. The portals closed with 4-0 nylon, dressed with Xeroform, 4 x 4 gauze, ABD pads and Ioban dressing and sling was then placed. ESTIMATED BLOOD LOSS: Trace. CRYSTALLOID: About 1100 mL. DVT PROPHYLAXIS: None. I attest to the content of the Intraoperative Record and any orders documented therein. Any exceptions are noted below. MTDD
[2017-07-03 13:50] VITALS: TEMP 36.4
[2017-07-03 14:27] VITALS: BP 136/76; PULSE 81; O2SAT 97
--- NOTE | 2017-07-03 14:28 | Anesthesia Progress Nt - [facility] ---
Anesthesia Post Op Note Date & Time Jul 03, 2017 at 14:28 Vital Signs Vital Signs Past 12 Hours Date Time Temp Pulse Resp B/P (MAP) Pulse Ox O2 Delivery O2 Flow Rate FiO2 07/03/17 14:27 81 20 136/76 (96) 97 Room Air 07/03/17 13:50 36.4 81 20 143/79 (100) 95 Room Air 07/03/17 13:44 87 21 07/03/17 13:44 87 21 95 07/03/17 13:40 126/79 07/03/17 13:39 86 23 96 07/03/17 13:39 86 23 07/03/17 13:36 112/72 07/03/17 13:36 36.5 84 19 126/79 95 Room Air 07/03/17 13:34 84 17 07/03/17 13:34 84 17 99 07/03/17 13:30 117/69 07/03/17 13:29 82 18 07/03/17 13:29 81 18 98 07/03/17 13:25 100/64 07/03/17 13:24 82 21 07/03/17 13:24 82 21 96 07/03/17 13:23 84 18 96 07/03/17 13:23 84 18 07/03/17 13:22 84 21 07/03/17 13:22 83 21 97 07/03/17 13:21 111/72 07/03/17 13:17 86 20 97 07/03/17 13:17 86 20 07/03/17 13:16 129/66 07/03/17 13:12 84 18 07/03/17 13:12 84 18 95 07/03/17 13:11 85 16 07/03/17 13:11 84 16 96 07/03/17 13:10 90 18 07/03/17 13:10 88 18 123/68 98 07/03/17 13:09 94 17 07/03/17 13:09 95 17 95 07/03/17 13:08 89 18 07/03/17 13:08 89 18 96 07/03/17 13:07 92 19 97 07/03/17 13:07 94 19 07/03/17 13:06 110/68 07/03/17 13:03 93 14 97 07/03/17 13:03 94 14 07/03/17 13:02 90 19 07/03/17 13:02 90 19 97 07/03/17 13:00 146/80 07/03/17 12:57 87 17 97 07/03/17 12:57 87 17 07/03/17 12:56 117/68 07/03/17 12:52 95 21 07/03/17 12:52 95 21 99 07/03/17 12:50 134/73 07/03/17 12:49 121/61 07/03/17 12:49 36.7 98 16 121/61 98 Mask 8 07/03/17 12:47 98 97 07/03/17 12:47 98 07/03/17 11:12 0 07/03/17 11:11 07/03/17 11:09 74 07/03/17 11:09 75 14 99 07/03/17 11:06 155/100 07/03/17 11:04 73 14 99 07/03/17 11:04 72 07/03/17 11:01 173/113 07/03/17 10:59 73 07/03/17 10:59 73 15 99 07/03/17 10:56 186/105 07/03/17 10:54 81 07/03/17 10:54 81 19 99 07/03/17 10:51 185/101 07/03/17 10:49 80 21 99 07/03/17 10:49 80 07/03/17 10:46 205/115 07/03/17 10:44 79 0 97 07/03/17 10:44 78 07/03/17 10:41 174/81 07/03/17 10:39 76 07/03/17 10:39 75 0 96 07/03/17 10:36 164/88 07/03/17 10:34 76 0 97 07/03/17 10:34 75 07/03/17 10:30 153/94 07/03/17 10:29 75 0 07/03/17 10:19 79 07/03/17 10:14 80 07/03/17 10:09 74 07/03/17 10:04 74 07/03/17 09:59 73 07/03/17 09:54 73 07/03/17 09:49 75 07/03/17 09:44 83 07/03/17 09:39 77 07/03/17 09:34 78 07/03/17 09:29 79 07/03/17 09:24 80 21 07/03/17 09:24 21 07/03/17 08:31 36.8 87 18 142/88 (106) 96 Notes Mental Status: alert / awake / arousable, participated in evaluation Pt Amnestic to Procedure: Yes Nausea / Vomiting: adequately controlled Pain: adequately controlled Airway Patency, RR, SpO2: stable & adequate BP & HR: stable & adequate Hydration State: stable & adequate Anesthetic Complications: no major complications apparent
== END | disposition home or self-care (01) ==
LOC: X.SURG 08:02
PROVIDERS: ATTEND Physical Medicine & Rehabilitation Sports Medicine
DX: M25.812 Other specified joint disorders, left shoulder (principal); M75.112 Incomplete rotator cuff tear or rupture of left shoulder, not specified as traumatic; S43.492A Other sprain of left shoulder joint, initial encounter; X58.XXXA Exposure to other specified factors, initial encounter; I10 Essential (primary) hypertension; E78.5 Hyperlipidemia, unspecified; E11.9 Type 2 diabetes mellitus without complications; I73.9 Peripheral vascular disease, unspecified; N52.9 Male erectile dysfunction, unspecified; Z79.84 Long term (current) use of oral hypoglycemic drugs; Z79.899 Other long term (current) drug therapy

== ENCOUNTER → 2017-08-13 | Outpatient (CLI) | payer OTHER, BC ==
[~2017-08-13] MED LIST changes: -ATROPINE SULFATE 0.1 MG/ML 5ML SYR IV PRN; -CEFAZOLIN 2000 MG/60 ML D5W IV SCH; -DEXAMETHASONE SOD INJ 4 MG/ML VIAL ONE; -EpINEphrine HCL INJ 1 MG/ML 5ML SYRINGE ONE; -FENTANYL CITRATE INJ 50 MCG/1 ML 2 ML VIAL IV PRN; -FENTANYL CITRATE INJ 50 MCG/1 ML 2 ML VIAL ONE; -KETOROLAC TROMETHAMINE 30 MG/ML VIAL IV. PRN; -LABETALOL HCL IV 5 MG/ML 20ML IV PRN; -LACTATED RINGER'S 1000ML 1,000 ML IV SCH; -LIDOCAINE HCL 2% 2 ML VIAL (20MG/ML) ONE; -MIDAZOLAM HCL 1 MG/ML 2ML VIAL ONE; -ONDANSETRON INJ 2 MG/ML 2 ML VIAL IV PRN; -ONDANSETRON INJ 2 MG/ML 2 ML VIAL ONE; -OXYCODONE/ACETAMINOPHEN 5-325 TAB PO PRN; -PROPOFOL IV EMULSION 10 MG/ML 20 ML VIAL IV ONE; -ROPIVACAINE 0.5% 5 MG/ML 30 ML VIAL ONE; -SODIUM CHLORIDE 0.9% 1000ML 1,000 ML IV SCH
== END | disposition home or self-care (01) ==
LOC: C.RDSM 14:58
PROVIDERS: ATTEND Physical Medicine & Rehabilitation Sports Medicine
DX: M75.121 Complete rotator cuff tear or rupture of right shoulder, not specified as traumatic (principal)

== ENCOUNTER → 2017-10-29 | Outpatient (CLI) | payer OTHER ==
[~2017-10-29] MED LIST changes: +OPTIRAY 320 IV PRN
--- NOTE | 2017-10-29 09:07 | DIAGNOSTIC IMAGING REPORT ---
ADDENDUM ADDENDUM: In addition to the vascular findings, there are numerous thyroid nodules identified. Follow-up with a thyroid ultrasound is recommended for further assessment. Electronically signed by: Clyde White M.D. 10/29/2017 9:10 AM Dictated Date/Time: 10/29/2017 9:[address] ANGIOGRAM OF THE NECK CLINICAL HISTORY: Carotid stenosis. COMPARISON STUDY: No priors. TECHNIQUE: Following the IV administration of 120 of Optiray 320, CT angiogram of the neck was performed from the aortic arch to the skull base. Images are reviewed in the axial, sagittal, and coronal planes. 3-D MIPS images are created and assessed. IV contrast was administered without complication. All measurements were calculated based on NASCET criteria. A dose lowering technique was utilized adhering to the principles of ALARA. CT DOSE: 537.18 mGy.cm FINDINGS: Thoracic aorta: There is mild atherosclerotic calcification of the imaged thoracic aorta. Visualized portions of the thoracic aorta are normal in caliber. The aortic arch demonstrates standard 3-vessel anatomy. Right carotid arterial system: The right common carotid artery is widely patent. There is approximate 75% stenosis at the origin of the right internal carotid artery, best seen on axial image #288. The remainder of the right internal carotid artery is widely patent. There is at least moderate stenosis at the origin of the right external carotid artery. The remainder of the right external carotid artery is patent. Left carotid arterial system: The left common carotid artery is widely patent noting soft plaque distally. There is approximately 50% narrowing at the origin of the left internal carotid artery secondary to soft and calcified plaque. The remainder of the left internal carotid artery as well as the left external carotid artery are widely patent. Vertebral arteries: The vertebral arteries are widely patent and codominant. Subclavian arteries: There is less than 50% luminal narrowing in the proximal left subclavian artery secondary to soft plaque. The subclavian arteries are otherwise widely patent. Intracranial vasculature: The partially visualized intracranial vessels at the skull base are patent. Jugular veins: Widely patent bilaterally. Brain parenchyma: The visualized brain parenchyma the skull base is within normal limits. Lung apices: Emphysematous change is suspected. Partially visualized upper lobe lung parenchyma otherwise appears clear. Soft tissues: The visualized pharyngeal soft tissues are normal in appearance noting angiographic phase technique. The oropharyngeal airway appears widely patent. The salivary glands are normal in appearance. Numerous bilateral low-attenuation thyroid nodules measure up to 12 mm. No cervical lymphadenopathy is seen. Skeletal structures: The visualized calvarium at the skull base appears intact. The imaged cervical spine is within normal limits. IMPRESSION: 1. There is approximately 75% stenosis at the origin of the right internal carotid artery. The remainder of the right internal carotid artery is widely patent. 2. There is approximately 50% luminal narrowing at the origin of the left internal carotid artery. The remainder of the left internal carotid artery is widely patent. 3. The vertebral arteries are widely patent and codominant. 4. There is less than 50% narrowing of the proximal left subclavian artery secondary to soft plaque. 5. Additional findings as above. Electronically signed by: Clyde White M.D. 10/29/2017 9:06 AM Dictated Date/Time: 10/29/2017 8:53 AM
== END | disposition home or self-care (01) ==
LOC: C.CTS 08:03
PROVIDERS: ATTEND Physician Assistant
DX: I65.23 Occlusion and stenosis of bilateral carotid arteries (principal)

== ENCOUNTER → 2018-01-14 | Outpatient (CLI) | payer OTHER ==
[~2018-01-14] MED LIST changes: -METO50TA7 PO; +METO50TA8 PO; -OPTIRAY 320 IV PRN
--- NOTE | 2018-01-14 16:03 | DIAGNOSTIC IMAGING REPORT ---
ABD/PELVIS WITHOUT FOR STONE CLINICAL HISTORY: 57 years-old Male presenting with RT SIDED PAIN. TECHNIQUE: Multidetector CT of the abdomen and pelvis was performed without the use of intravenous contrast. IV contrast: None. A dose lowering technique was used consistent with the principles of ALARA (as low as reasonably achievable). COMPARISON: 03/21/2017. CT DOSE (mGy.cm): The estimated cumulative dose is 997.43 mGycm. FINDINGS: Broadcast Producer topogram: Unremarkable. Lung bases: Mosaic attenuation in the lungs suggest small airways disease. No focal infiltrate at the lung bases. Normal heart size. Coronary artery calcification. No pericardial or pleural effusion. Liver: Normal morphology. Normal density. Biliary: No gross biliary ductal dilatation allowing for noncontrast technique. Normal gallbladder. Pancreas: Mild parenchymal atrophy. Spleen: Normal noncontrast appearance. Adrenal glands: Normal noncontrast appearance. Kidneys and ureters: Normal noncontrast appearance. Punctate nonobstructing calculus in the right kidney. No hydronephrosis. Normal ureters. Bladder: Circumferential bladder wall thickening. Pelvic organs: Prostate enlargement likely secondary to benign prostatic hyperplasia. Bowel: Few scattered diverticula in the colon. No pericolonic fat infiltration. Mild stool burden. The appendix is normal. No bowel obstruction. Peritoneal cavity: No free fluid or intraperitoneal gas. Lymph nodes: No gross lymphadenopathy allowing for noncontrast technique. Vasculature: Atherosclerosis of the normal caliber abdominal aorta. Abdominal wall: Normal. Musculoskeletal: Degenerative changes of the spine. IMPRESSION: 1. No acute intra-abdominal pathology. No appendicitis. 2. Diverticulosis. No evidence of diverticulitis. 3. Punctate nonobstructing right renal calculus. No hydronephrosis or ureteral calculi. Electronically signed by: Hari Sun M.D. 01/14/2018 4:02 PM Dictated Date/Time: 01/14/2018 3:59 PM
== END | disposition home or self-care (01) ==
LOC: C.CTS 15:08
PROVIDERS: ATTEND Family Medicine
DX: M54.9 Dorsalgia, unspecified (principal); R10.9 Unspecified abdominal pain; K57.90 Diverticulosis of intestine, part unspecified, without perforation or abscess without bleeding; N20.0 Calculus of kidney

== ENCOUNTER → 2018-01-31 | Outpatient (CLI) | payer OTHER ==
--- NOTE | 2018-01-31 08:18 | DIAGNOSTIC IMAGING REPORT ---
SOFT TISS HEAD/NECK-THYROID HISTORY: Thyroid nodule E04.2 COMPARISON: None. FINDINGS: Right lobe: Maximum dimension 6.8 cm. Multiple hypoechoic nodules are present measuring up to 1.8 cm. Left lobe: greatest dimension of 5.7 cm. Multiple nodules are present measuring up to 1 cm. No abnormal vascularity or calcification. Isthmus: No nodules. IMPRESSION: 1. Findings consistent with a multicystic multinodular goiter.. 2. There is no evidence for major dominant nodule. 3. Six-month ultrasonic follow-up is suggested The above report was generated using voice recognition software. It may contain grammatical, syntax or spelling errors. Electronically signed by: Geronimo Beebe M.D. 01/31/2018 8:16 AM Dictated Date/Time: 01/31/2018 8:15 AM
== END | disposition home or self-care (01) ==
LOC: C.ULTR 07:27
PROVIDERS: ATTEND Family Medicine
DX: E04.2 Nontoxic multinodular goiter (principal)

== ENCOUNTER → 2018-02-11 | Outpatient (CLI) | payer OTHER ==
--- NOTE | 2018-02-11 13:54 | DIAGNOSTIC IMAGING REPORT ---
RIGHT LOWER ABDOMINAL ULTRASOUND HISTORY: Soft tissue swelling/edema of right lower abdomen. COMPARISON: CT of the abdomen and pelvis January 14, 2018. FINDINGS: Targeted sonography of the right lower anterior abdominal wall demonstrated no mass, fluid collection, hernia or other sonographic abnormality. IMPRESSION: No sonographic abnormality of the right lower abdominal wall. Electronically signed by: Richard Morgan M.D. 02/11/2018 1:53 PM Dictated Date/Time: 02/11/2018 1:49 PM
== END | disposition home or self-care (01) ==
LOC: C.ULTRBC 13:22
PROVIDERS: ATTEND Family Medicine
DX: R19.00 Intra-abdominal and pelvic swelling, mass and lump, unspecified site (principal); Z88.0 Allergy status to penicillin; Z88.1 Allergy status to other antibiotic agents

== ENCOUNTER 2021-04-14 17:31 | Observation (INO) ==
[2021-04-14] MEDS ORDERED: DEXTROSE 50% 50 ML SYRINGE IV ONE ×3 (18:12→21:31)
[2021-04-14] MEDS ORDERED: CLINDAMYCIN 900 MG in DEXTROSE 5% 50 ML IV ONE (18:14)
[2021-04-14] MEDS ORDERED: SODIUM CHLORIDE 0.9% 1000ML 1,000 ML IV SCH (18:15)
--- NOTE | 2021-04-14 18:18 | Emergency Department Note ---
Impression & Plan Hypoglycemia, Rigors, Acute hyponatremia, MAGDIEL (acute kidney injury) ED Provider Note NAME: JONATHON WALKER AGE: 60 SEX: M : 1960 ARRIVES VIA: Ambulance INFORMANT: [Patient] ED PROVIDER(S): [Clyde Clifford MD] CHIEF COMPLAINT: Hypoglycemia HISTORY OF PRESENT ILLNESS: The patient is a 60-year-old male who was sent over from the [facility] outpatient offices for hypoglycemia. His sugar was in the 20s. He was given juice and crackers. Sugar as per our nursing staff is now around 70. The patient states that he was there for a follow-up visit for his right foot ulcer. He is currently on clindamycin, he has been on this for 2 days. The clindamycin has caused some diarrhea, no vomiting. For the last 1.5 hours, the patient has had shivers and chills, almost rigors. He states he feels cold. He denies any fever at home. He has had no cough or congestion or shortness of breath. No abdominal pain. No urinary complaints. The patient states the ulcer on the bottom of his right foot was started from a boot that he was told to wear. He had fractured his foot and was wearing the boot to support the foot. He is diabetic. The patient takes Metformin and glimepiride. REVIEW OF SYSTEMS: See HPI for pertinent positives and negatives. A total of ten systems were reviewed and were otherwise negative. PMHx/PSHx: See Below SOCIAL HISTORY: See Below. PHYSICAL EXAM: GENERAL: Patient is in mild distress. Rigors noted. HEENT: No acute trauma, normocephalic atraumatic, mucous membranes moist, no nasal congestion, no scleral icterus. NECK: No stridor, no adenopathy, no meningismus, trachea is midline. LUNGS: Clear to auscultation bilaterally, no wheeze, no rhonchi, breath sounds equal. HEART: Subtle systolic murmur, mildly tachycardic, regular rhythm. ABDOMEN: Soft, nontender, bowel sounds positive, no hernias, no peritonitis. EXTREMITIES: No cyanosis or edema, full range of motion of all the joints without pain or difficulty, no signs for acute trauma. Patient does have an ulcer on the bottom of his right foot. There is some mild surrounding erythema, no drainage. NEUROLOGIC: Oriented x 3, no acute motor or sensory deficits, no focal weakness. SKIN: No rash, no jaundice, no diaphoresis. DIFFERENTIAL DIAGNOSIS: Sepsis, UTI, pneumonia, metabolic abnormality, hypoglycemia, failed outpatient t reatment, electrolyte abnormalities, cardiac sources, cellulitis, UTI, bacteremia, intracerebral event, toxicologic etiology, neurologic event, as well as other pathologies. EMERGENCY DEPARTMENT COURSE/PROCEDURES: ECG: Indication was weakness. The ECG shows a sinus rhythm with PVCs and PACs. The rate is 93. There is some baseline artifact. There is no ST el evation. The QTc is 430. Repeat EKG: Indication was chest pain. As per my review there is a normal sinus rhythm with a rate of 90. There is no ST elevation, no PVCs. The QTc is 415. Continuous Cardiac Monitoring: An order was placed for continuous cardiac monitoring. The monitor shows a rate of 98 with normal sinus rhythm. MEDICAL DECISION MAKING: There is a mild leukocytosis, this could be consistent with infection. There was a mild anemia with a hemoglobin of 12.5. There was a normal platelet count. No coagulopathy. Sodium somewhat low at 133. Creatinine was high at 2.07. There were no old values to use for comparison. Sugar was low. Lactic acid level was not elevated making sepsis less likely. No concerning liver enzyme elevation. TSH was somewhat low however, the T4 was normal. ECG showed a sinus rhythm, there was no acute ischemia. Second EKG showed a sinus rhythm, no acute ischemia. Cardiac enzyme testing x1 is not consistent with acute cardiac injury. Urinalysis did not show infection. Covid testing was negative. Chest x-ray did not show pneumonia or pneumothorax. The patient presented hypoglycemic. He was having rigors when I was in the room. He required several doses of IV glucose and an IV dextrose drip. He was given IV clindamycin as antibiotic coverage. He received IV saline. Patient was given IV Pepcid for heartburn, he was given a GI cocktail for heartburn. The patient has required multiple doses of IV dextrose to keep his sugar value adequate. He is going to require a hospital stay. I am also somewhat concerned about the possibility of bacteremia given his rigors noted. He does have an open wound on his right plantar foot. The patient is being hospitalized. I spoke to the patient at length. I spoke with case management. The on-call hospitalist was consulted. Past Med/Surg History Medical History Chronic obstructive pulmonary disease Diabetes mellitus, type 2 GERD (gastroesophageal reflux disease) Gout Hyperlipidemia Hypertension Hypoglycemia Osteoarthritis Peripheral neuropathy Scoliosis Surgical History History of carpal tunnel release RT History of cataract surgery LEFT History of colonoscopy History of esophagogastroduodenoscopy (EGD) History of hand surgery RT TENDON RELEASE History of repair of rotator cuff RT X 2 History of tooth extraction Family History Mother Family history of diabetes mellitus Social History Smoking Status: Current every day smoker Tobacco Type: Cigarettes Cigarettes Per Day: 20-40; Second Hand Exposure: No; Do You Dip or Chew Tobacco: No; Tobacco Cessation Education Requested by Patient: No Hx Alcohol Use: No Hx Substance Use: No Preferred Language: Georgian Communication Ability: Effective Cigar Head Piercer Required: No Beliefs That Will Affect Care: None Current Living Situation: Family Other Information That Helps Us Care for You: No Feels Safe at Home: Yes Safety Concerns: Feels Safe At This Time Assistive Devices: Glasses Allergies Allergies Allergy/AdvReac Type Severity Reaction Status Date / Time Penicillins Allergy Severe CHILD Verified 04/14/21 17:55 sulfamethoxazole Allergy Intermediate RASH Verified 04/14/21 17:55 trimethoprim Allergy Intermediate RASH Verified 04/14/21 17:55 Home Meds Home Medications Medication Instructions Recorded Confirmed aspirin 81 mg chewable tablet 81 mg PO QAM 07/15/18 04/14/21 cilostazol 100 mg tablet 100 mg PO BID 07/15/18 04/14/21 gabapentin 800 mg tablet 800 mg PO TID 07/15/18 04/14/21 glimepiride 4 mg tablet 4 mg PO QAM 07/15/18 04/14/21 lisinopril 5 mg tablet 5 mg PO QAM 07/15/18 04/14/21 metformin 1,000 mg tablet 1,000 mg PO BID 07/15/18 04/14/21 metoprolol succinate 50 mg 50 mg PO QAM 07/15/18 04/14/21 tablet,extended release 24 hr omeprazole 20 mg tablet,delayed 20 mg PO DAILY PRN 07/15/18 04/14/21 release pioglitazone 45 mg tablet (Actos) 45 mg PO QAM 07/15/18 04/14/21 rosuvastatin 20 mg tablet (Crestor) 20 mg PO HS 07/15/18 04/14/21 clindamycin HCl 150 mg capsule 450 mg PO Q8 04/14/21 04/14/21 rivaroxaban 10 mg tablet (Xarelto) 10 mg PO DAILY 04/14/21 04/14/21 Results & Data (ED) Vital Signs Vital Signs - 24 hr 04/14/21 17:35 04/14/21 17:41 04/14/21 18:46 Temperature 36.6 C Temperature Source Oral Pulse Rate 96 H 92 H 94 H Pulse Rate [Apical] 92 H Respiratory Rate 15 22 23 Blood Pressure 193/133 H 193/133 H 131/68 Blood Pressure [Right Arm] 193/133 H Blood Pressure Mean 153 153 89 Blood Pressure Mean [Right Arm] 153 Blood Pressure Position Lying Blood Pressure Position [Right Arm] Lying Pulse Oximetry 99 Oxygen Delivery Method Room Air Sepsis Recent Fever Within 48 Hours No Sepsis New/Unexplained Change in Mental Status No Sepsis Action Taken by Nursing No Action Required 04/14/21 18:48 04/14/21 19:01 04/14/21 20:01 Temperature Temperature Source Pulse Rate 90 92 H 87 Pulse Rate [Apical] 98 H Respiratory Rate 20 21 29 H Blood Pressure 149/57 H Blood Pressure [Right Arm] 131/68 Blood Pressure Mean 87 Blood Pressure Mean [Right Arm] 89 Blood Pressure Position Blood Pressure Position [Right Arm] Sitting Pulse Oximetry 98 Oxygen Delivery Method Room Air Sepsis Recent Fever Within 48 Hours Sepsis New/Unexplained Change in Mental Status Sepsis Action Taken by Nursing 04/14/21 20:10 04/14/21 20:20 04/14/21 20:27 Temperature Temperature Source Pulse Rate 87 88 Pulse Rate [Apical] Respiratory Rate 16 24 20 Blood Pressure Blood Pressure [Right Arm] Blood Pressure Mean Blood Pressure Mean [Right Arm] Blood Pressure Position Blood Pressure Position [Right Arm] Pulse Oximetry Oxygen Delivery Method Sepsis Recent Fever Within 48 Hours Sepsis New/Unexplained Change in Mental Status Sepsis Action Taken by Nursing 04/14/21 20:30 04/14/21 20:40 04/14/21 20:50 Temperature Temperature Source Pulse Rate 86 88 85 Pulse Rate [Apical] Respiratory Rate 23 17 18 Blood Pressure Blood Pressure [Right Arm] Blood Pressure Mean Blood Pressure Mean [Right Arm] Blood Pressure Position Blood Pressure Position [Right Arm] Pulse Oximetry Oxygen Delivery Method Sepsis Recent Fever Within 48 Hours Sepsis New/Unexplained Change in Mental Status Sepsis Action Taken by Nursing 04/14/21 21:00 Temperature Temperature Source Pulse Rate 93 H Pulse Rate [Apical] 90 Respiratory Rate 20 Blood Pressure Blood Pressure [Right Arm] 114/57 L Blood Pressure Mean Blood Pressure Mean [Right Arm] 76 Blood Pressure Position Blood Pressure Position [Right Arm] Pulse Oximetry 98 Oxygen Delivery Method Room Air Sepsis Recent Fever Within 48 Hours Sepsis New/Unexplained Change in Mental Status Sepsis Action Taken by Intermediate Medications Current Medication List: was personally reviewed by me Laboratory Data Attestation: I reviewed the patient's lab results. Result diagrams: 04/14/21 18:36 04/14/21 21:24 Lab Results 04/14/21 04/14/21 04/14/21 Range/Units 17:37 18:18 18:36 WBC 13.42 H (4.8-10.8) K/uL RBC 3.81 L (4.7-6.1) M/uL Hgb 12.5 L (14.0-18.0) g/dL Hct 36.8 L (42-52) % MCV 96.6 (80-100) fL MCH 32.8 (25-34) pg MCHC 34.0 (32-36) g/dL RDW Std Deviation 47.2 H (36.4-46.3) fL RDW Coeff of Dandy 13.4 (11.5-14.5) % Plt Count 286 (130-400) K/uL MPV 9.9 (7.4-10.4) fL Immature Gran % (Auto) 0.1 % Neut % (Auto) 85.1 % Lymph % (Auto) 7.7 % Cooper % (Auto) 6.9 % Eos % (Auto) 0.1 % Baso % (Auto) 0.1 % Neut # (Auto) 11.41 H (1.4-6.5) K/uL Lymph # (Auto) 1.04 L (1.2-3.4) K/uL Cooper # (Auto) 0.92 H (0.11-0.59) K/uL Eos # (Auto) 0.01 (0-0.5) K/uL Baso # (Auto) 0.02 (0-0.2) K/uL Immature Gran # (Auto) 0.02 (0.00-0.02) K/uL PT (9.0-12.0) Seconds INR (0.9-1.1) APTT (21.0-31.0) Seconds PTT Ratio Sodium (136-145) mmol/L Potassium (3.5-5.1) mmol/L Chloride (98-107) mmol/L Carbon Dioxide (21-32) mmol/L Anion Gap (3-11) BUN (7-18) mg/dl Creatinine (0.6-1.4) mg/dl Est Cr Clr Drug Dosing ml/min Est GFR ( Amer) ml/min Est GFR (Non-Af Amer) ml/min BUN/Creatinine Ratio (10-20) Glucose (70-99) mg/dl POC Glucose 70 53 L* (70-99) mg/dl Lactate (0.4-2.0) mmol/L Calcium (8.5-10.1) mg/dl Magnesium (1.8-2.4) mg/dl Total Bilirubin (0.2-1) mg/dl AST (15-37) U/L ALT (12-78) U/L Alkaline Phosphatase (45-117) U/L Troponin I (0-0.045) ng/ml Total Protein (6.4-8.2) gm/dl Albumin (3.4-5.0) gm/dl Globulin (2.5-4.0) gm/dl Albumin/Globulin Ratio (0.9-2) Procalcitonin (0-0.5) ng/ml TSH (0.300-4.500) uIu/ml Free T4 (0.8-1.6) ng/dl Random Cortisol mcg/dl Urine Color Urine Appearance (Clear) Urine pH (4.5-7.5) Ur Specific [place] (1.000-1.030) Urine Protein (Negative) Urine Glucose (UA) (Negative) Urine Ketones (Negative) Urine Blood (Negative) Urine Nitrite (Negative) Urine Bilirubin (Negative) Urine Urobilinogen (Negative) Ur Leukocyte Esterase (Negative) Urine WBC (Auto) (0-5) /hpf Urine RBC (Auto) (0-4) /hpf U Hyaline Cast (Auto) (0-5) /lpf U Epithel Cells (Auto) (0-5) /lpf Urine Bacteria (Auto) (Negative) Urine Opiates Screen (Neg) Ur Methadone, Qual (Neg) Urine Barbiturates (Neg) Ur Phencyclidine (PCP) (Neg) U Amphetamin/Meth Scrn (Neg) MDMA (Ecstasy) Screen (Neg) U Benzodiazepines Scrn (Neg) Ur Cocaine Metabolite (Neg) U Marijuana (THC) Screen (Neg) Ethyl Alcohol mg/dL (0-3) mg/dl COVID-19 Eval Order SARS-CoV-2 (PCR) (Negative) 04/14/21 04/14/21 04/14/21 Range/Units 18:36 18:36 18:36 WBC (4.8-10.8) K/uL RBC (4.7-6.1) M/uL Hgb (14.0-18.0) g/dL Hct (42-52) % MCV (80-100) fL MCH (25-34) pg MCHC (32-36) g/dL RDW Std Deviation (36.4-46.3) fL RDW Coeff of Dandy (11.5-14.5) % Plt Count (130-400) K/uL MPV (7.4-10.4) fL Immature Gran % (Auto) % Neut % (Auto) % Lymph % (Auto) % Cooper % (Auto) % Eos % (Auto) % Baso % (Auto) % Neut # (Auto) (1.4-6.5) K/uL Lymph # (Auto) (1.2-3.4) K/uL Cooper # (Auto) (0.11-0.59) K/uL Eos # (Auto) (0-0.5) K/uL Baso # (Auto) (0-0.2) K/uL Immature Gran # (Auto) (0.00-0.02) K/uL PT 11.3 (9.0-12.0) Seconds INR 1.1 (0.9-1.1) APTT 29.9 (21.0-31.0) Seconds PTT Ratio 1.1 Sodium 133 L (136-145) mmol/L Potassium 4.3 (3.5-5.1) mmol/L Chloride 103 (98-107) mmol/L Carbon Dioxide 24 (21-32) mmol/L Anion Gap 5.0 (3-11) BUN 43 H (7-18) mg/dl Creatinine 2.07 H (0.6-1.4) mg/dl Est Cr Clr Drug Dosing 46.6 ml/min Est GFR ( Amer) 39.2 ml/min Est GFR (Non-Af Amer) 33.8 ml/min BUN/Creatinine Ratio 20.5 H (10-20) Glucose 104 H (70-99) mg/dl POC Glucose (70-99) mg/dl Lactate 1.6 (0.4-2.0) mmol/L Calcium 8.4 L (8.5-10.1) mg/dl Magnesium 2.1 (1.8-2.4) mg/dl Total Bilirubin 0.4 (0.2-1) mg/dl AST 10 L (15-37) U/L ALT 17 (12-78) U/L Alkaline Phosphatase 64 (45-117) U/L Troponin I < 0.015 (0-0.045) ng/ml Total Protein 7.7 (6.4-8.2) gm/dl Albumin 3.8 (3.4-5.0) gm/dl Globulin 3.9 (2.5-4.0) gm/dl Albumin/Globulin Ratio 1.0 (0.9-2) Procalcitonin (0-0.5) ng/ml TSH (0.300-4.500) uIu/ml Free T4 (0.8-1.6) ng/dl Random Cortisol mcg/dl Urine Color Urine Appearance (Clear) Urine pH (4.5-7.5) Ur Specific [place] (1.000-1.030) Urine Protein (Negative) Urine Glucose (UA) (Negative) Urine Ketones (Negative) Urine Blood (Negative) Urine Nitrite (Negative) Urine Bilirubin (Negative) Urine Urobilinogen (Negative) Ur Leukocyte Esterase (Negative) Urine WBC (Auto) (0-5) /hpf Urine RBC (Auto) (0-4) /hpf U Hyaline Cast (Auto) (0-5) /lpf U Epithel Cells (Auto) (0-5) /lpf Urine Bacteria (Auto) (Negative) Urine Opiates Screen (Neg) Ur Methadone, Qual (Neg) Urine Barbiturates (Neg) Ur Phencyclidine (PCP) (Neg) U Amphetamin/Meth Scrn (Neg) MDMA (Ecstasy) Screen (Neg) U Benzodiazepines Scrn (Neg) Ur Cocaine Metabolite (Neg) U Marijuana (THC) Screen (Neg) Ethyl Alcohol mg/dL (0-3) mg/dl COVID-19 Eval Order SARS-CoV-2 (PCR) (Negative) 04/14/21 04/14/21 04/14/21 Range/Units 18:36 18:38 18:48 WBC (4.8-10.8) K/uL RBC (4.7-6.1) M/uL Hgb (14.0-18.0) g/dL Hct (42-52) % MCV (80-100) fL MCH (25-34) pg MCHC (32-36) g/dL RDW Std Deviation (36.4-46.3) fL RDW Coeff of Dandy (11.5-14.5) % Plt Count (130-400) K/uL MPV (7.4-10.4) fL Immature Gran % (Auto) % Neut % (Auto) % Lymph % (Auto) % Cooper % (Auto) % Eos % (Auto) % Baso % (Auto) % Neut # (Auto) (1.4-6.5) K/uL Lymph # (Auto) (1.2-3.4) K/uL Cooper # (Auto) (0.11-0.59) K/uL Eos # (Auto) (0-0.5) K/uL Baso # (Auto) (0-0.2) K/uL Immature Gran # (Auto) (0.00-0.02) K/uL PT (9.0-12.0) Seconds INR (0.9-1.1) APTT (21.0-31.0) Seconds PTT Ratio Sodium (136-145) mmol/L Potassium (3.5-5.1) mmol/L Chloride (98-107) mmol/L Carbon Dioxide (21-32) mmol/L Anion Gap (3-11) BUN (7-18) mg/dl Creatinine (0.6-1.4) mg/dl Est Cr Clr Drug Dosing ml/min Est GFR ( Amer) ml/min Est GFR (Non-Af Amer) ml/min BUN/Creatinine Ratio (10-20) Glucose (70-99) mg/dl POC Glucose 155 H (70-99) mg/dl Lactate (0.4-2.0) mmol/L Calcium (8.5-10.1) mg/dl Magnesium (1.8-2.4) mg/dl Total Bilirubin (0.2-1) mg/dl AST (15-37) U/L ALT (12-78) U/L Alkaline Phosphatase (45-117) U/L Troponin I (0-0.045) ng/ml Total Protein (6.4-8.2) gm/dl Albumin (3.4-5.0) gm/dl Globulin (2.5-4.0) gm/dl Albumin/Globulin Ratio (0.9-2) Procalcitonin 0.13 (0-0.5) ng/ml TSH (0.300-4.500) uIu/ml Free T4 (0.8-1.6) ng/dl Random Cortisol mcg/dl Urine Color Urine Appearance (Clear) Urine pH (4.5-7.5) Ur Specific [place] (1.000-1.030) Urine Protein (Negative) Urine Glucose (UA) (Negative) Urine Ketones (Negative) Urine Blood (Negative) Urine Nitrite (Negative) Urine Bilirubin (Negative) Urine Urobilinogen (Negative) Ur Leukocyte Esterase (Negative) Urine WBC (Auto) (0-5) /hpf Urine RBC (Auto) (0-4) /hpf U Hyaline Cast (Auto) (0-5) /lpf U Epithel Cells (Auto) (0-5) /lpf Urine Bacteria (Auto) (Negative) Urine Opiates Screen (Neg) Ur Methadone, Qual (Neg) Urine Barbiturates (Neg) Ur Phencyclidine (PCP) (Neg) U Amphetamin/Meth Scrn (Neg) MDMA (Ecstasy) Screen (Neg) U Benzodiazepines Scrn (Neg) Ur Cocaine Metabolite (Neg) U Marijuana (THC) Screen (Neg) Ethyl Alcohol mg/dL (0-3) mg/dl COVID-19 Eval Order Covid19 at [facility] SARS-CoV-2 (PCR) (Negative) 04/14/21 04/14/21 04/14/21 Range/Units 18:48 19:00 19:00 WBC (4.8-10.8) K/uL RBC (4.7-6.1) M/uL Hgb (14.0-18.0) g/dL Hct (42-52) % MCV (80-100) fL MCH (25-34) pg MCHC (32-36) g/dL RDW Std Deviation (36.4-46.3) fL RDW Coeff of Dandy (11.5-14.5) % Plt Count (130-400) K/uL MPV (7.4-10.4) fL Immature Gran % (Auto) % Neut % (Auto) % Lymph % (Auto) % Cooper % (Auto) % Eos % (Auto) % Baso % (Auto) % Neut # (Auto) (1.4-6.5) K/uL Lymph # (Auto) (1.2-3.4) K/uL Cooper # (Auto) (0.11-0.59) K/uL Eos # (Auto) (0-0.5) K/uL Baso # (Auto) (0-0.2) K/uL Immature Gran # (Auto) (0.00-0.02) K/uL PT (9.0-12.0) Seconds INR (0.9-1.1) APTT (21.0-31.0) Seconds PTT Ratio Sodium (136-145) mmol/L Potassium (3.5-5.1) mmol/L Chloride (98-107) mmol/L Carbon Dioxide (21-32) mmol/L Anion Gap (3-11) BUN (7-18) mg/dl Creatinine (0.6-1.4) mg/dl Est Cr Clr Drug Dosing ml/min Est GFR ( Amer) ml/min Est GFR (Non-Af Amer) ml/min BUN/Creatinine Ratio (10-20) Glucose (70-99) mg/dl POC Glucose (70-99) mg/dl Lactate (0.4-2.0) mmol/L Calcium (8.5-10.1) mg/dl Magnesium (1.8-2.4) mg/dl Total Bilirubin (0.2-1) mg/dl AST (15-37) U/L ALT (12-78) U/L Alkaline Phosphatase (45-117) U/L Troponin I (0-0.045) ng/ml Total Protein (6.4-8.2) gm/dl Albumin (3.4-5.0) gm/dl Globulin (2.5-4.0) gm/dl Albumin/Globulin Ratio (0.9-2) Procalcitonin (0-0.5) ng/ml TSH (0.300-4.500) uIu/ml Free T4 (0.8-1.6) ng/dl Random Cortisol mcg/dl Urine Color Yellow Urine Appearance Clear (Clear) Urine pH 5.0 (4.5-7.5) Ur Specific [place] 1.011 (1.000-1.030) Urine Protein 1+ H (Negative) Urine Glucose (UA) Negative (Negative) Urine Ketones Negative (Negative) Urine Blood Negative (Negative) Urine Nitrite Negative (Negative) Urine Bilirubin Negative (Negative) Urine Urobilinogen Negative (Negative) Ur Leukocyte Esterase Negative (Negative) Urine WBC (Auto) 0 (0-5) /hpf Urine RBC (Auto) 0-4 (0-4) /hpf U Hyaline Cast (Auto) 0 (0-5) /lpf U Epithel Cells (Auto) 0-5 (0-5) /lpf Urine Bacteria (Auto) Negative (Negative) Urine Opiates Screen Neg (Neg) Ur Methadone, Qual Neg (Neg) Urine Barbiturates Neg (Neg) Ur Phencyclidine (PCP) Neg (Neg) U Amphetamin/Meth Scrn Neg (Neg) MDMA (Ecstasy) Screen Neg (Neg) U Benzodiazepines Scrn Neg (Neg) Ur Cocaine Metabolite Neg (Neg) U Marijuana (THC) Screen Neg (Neg) Ethyl Alcohol mg/dL (0-3) mg/dl COVID-19 Eval Order SARS-CoV-2 (PCR) NEGATIVE (Negative) 04/14/21 04/14/21 04/14/21 Range/Units 20:02 20:19 21:24 WBC (4.8-10.8) K/uL RBC (4.7-6.1) M/uL Hgb (14.0-18.0) g/dL Hct (42-52) % MCV (80-100) fL MCH (25-34) pg MCHC (32-36) g/dL RDW Std Deviation (36.4-46.3) fL RDW Coeff of Dandy (11.5-14.5) % Plt Count (130-400) K/uL MPV (7.4-10.4) fL Immature Gran % (Auto) % Neut % (Auto) % Lymph % (Auto) % Cooper % (Auto) % Eos % (Auto) % Baso % (Auto) % Neut # (Auto) (1.4-6.5) K/uL Lymph # (Auto) (1.2-3.4) K/uL Cooper # (Auto) (0.11-0.59) K/uL Eos # (Auto) (0-0.5) K/uL Baso # (Auto) (0-0.2) K/uL Immature Gran # (Auto) (0.00-0.02) K/uL PT (9.0-12.0) Seconds INR (0.9-1.1) APTT (21.0-31.0) Seconds PTT Ratio Sodium (136-145) mmol/L Potassium (3.5-5.1) mmol/L Chloride (98-107) mmol/L Carbon Dioxide (21-32) mmol/L Anion Gap (3-11) BUN (7-18) mg/dl Creatinine (0.6-1.4) mg/dl Est Cr Clr Drug Dosing ml/min Est GFR ( Amer) ml/min Est GFR (Non-Af Amer) ml/min BUN/Creatinine Ratio (10-20) Glucose 32 L* (70-99) mg/dl POC Glucose 42 L* 108 H (70-99) mg/dl Lactate (0.4-2.0) mmol/L Calcium (8.5-10.1) mg/dl Magnesium (1.8-2.4) mg/dl Total Bilirubin (0.2-1) mg/dl AST (15-37) U/L ALT (12-78) U/L Alkaline Phosphatase (45-117) U/L Troponin I (0-0.045) ng/ml Total Protein (6.4-8.2) gm/dl Albumin (3.4-5.0) gm/dl Globulin (2.5-4.0) gm/dl Albumin/Globulin Ratio (0.9-2) Procalcitonin (0-0.5) ng/ml TSH 0.226 L (0.300-4.500) uIu/ml Free T4 1.04 (0.8-1.6) ng/dl Random Cortisol mcg/dl Urine Color Urine Appearance (Clear) Urine pH (4.5-7.5) Ur Specific [place] (1.000-1.030) Urine Protein (Negative) Urine Glucose (UA) (Negative) Urine Ketones (Negative) Urine Blood (Negative) Urine Nitrite (Negative) Urine Bilirubin (Negative) Urine Urobilinogen (Negative) Ur Leukocyte Esterase (Negative) Urine WBC (Auto) (0-5) /hpf Urine RBC (Auto) (0-4) /hpf U Hyaline Cast (Auto) (0-5) /lpf U Epithel Cells (Auto) (0-5) /lpf Urine Bacteria (Auto) (Negative) Urine Opiates Screen (Neg) Ur Methadone, Qual (Neg) Urine Barbiturates (Neg) Ur Phencyclidine (PCP) (Neg) U Amphetamin/Meth Scrn (Neg) MDMA (Ecstasy) Screen (Neg) U Benzodiazepines Scrn (Neg) Ur Cocaine Metabolite (Neg) U Marijuana (THC) Screen (Neg) Ethyl Alcohol mg/dL (0-3) mg/dl COVID-19 Eval Order SARS-CoV-2 (PCR) (Negative) 04/14/21 04/14/21 04/14/21 Range/Units 21:24 21:24 21:28 WBC (4.8-10.8) K/uL RBC (4.7-6.1) M/uL Hgb (14.0-18.0) g/dL Hct (42-52) % MCV (80-100) fL MCH (25-34) pg MCHC (32-36) g/dL RDW Std Deviation (36.4-46.3) fL RDW Coeff of Dandy (11.5-14.5) % Plt Count (130-400) K/uL MPV (7.4-10.4) fL Immature Gran % (Auto) % Neut % (Auto) % Lymph % (Auto) % Cooper % (Auto) % Eos % (Auto) % Baso % (Auto) % Neut # (Auto) (1.4-6.5) K/uL Lymph # (Auto) (1.2-3.4) K/uL Cooper # (Auto) (0.11-0.59) K/uL Eos # (Auto) (0-0.5) K/uL Baso # (Auto) (0-0.2) K/uL Immature Gran # (Auto) (0.00-0.02) K/uL PT (9.0-12.0) Seconds INR (0.9-1.1) APTT (21.0-31.0) Seconds PTT Ratio Sodium (136-145) mmol/L Potassium (3.5-5.1) mmol/L Chloride (98-107) mmol/L Carbon Dioxide (21-32) mmol/L Anion Gap (3-11) BUN (7-18) mg/dl Creatinine (0.6-1.4) mg/dl Est Cr Clr Drug Dosing ml/min Est GFR ( Amer) ml/min Est GFR (Non-Af Amer) ml/min BUN/Creatinine Ratio (10-20) Glucose (70-99) mg/dl POC Glucose 42 L* (70-99) mg/dl Lactate (0.4-2.0) mmol/L Calcium (8.5-10.1) mg/dl Magnesium (1.8-2.4) mg/dl Total Bilirubin (0.2-1) mg/dl AST (15-37) U/L ALT (12-78) U/L Alkaline Phosphatase (45-117) U/L Troponin I (0-0.045) ng/ml Total Protein (6.4-8.2) gm/dl Albumin (3.4-5.0) gm/dl Globulin (2.5-4.0) gm/dl Albumin/Globulin Ratio (0.9-2) Procalcitonin (0-0.5) ng/ml TSH (0.300-4.500) uIu/ml Free T4 (0.8-1.6) ng/dl Random Cortisol 12.45 mcg/dl Urine Color Urine Appearance (Clear) Urine pH (4.5-7.5) Ur Specific [place] (1.000-1.030) Urine Protein (Negative) Urine Glucose (UA) (Negative) Urine Ketones (Negative) Urine Blood (Negative) Urine Nitrite (Negative) Urine Bilirubin (Negative) Urine Urobilinogen (Negative) Ur Leukocyte Esterase (Negative) Urine WBC (Auto) (0-5) /hpf Urine RBC (Auto) (0-4) /hpf U Hyaline Cast (Auto) (0-5) /lpf U Epithel Cells (Auto) (0-5) /lpf Urine Bacteria (Auto) (Negative) Urine Opiates Screen (Neg) Ur Methadone, Qual (Neg) Urine Barbiturates (Neg) Ur Phencyclidine (PCP) (Neg) U Amphetamin/Meth Scrn (Neg) MDMA (Ecstasy) Screen (Neg) U Benzodiazepines Scrn (Neg) Ur Cocaine Metabolite (Neg) U Marijuana (THC) Screen (Neg) Ethyl Alcohol mg/dL < 3.0 (0-3) mg/dl COVID-19 Eval Order SARS-CoV-2 (PCR) (Negative) 04/14/21 Range/Units 21:29 WBC (4.8-10.8) K/uL RBC (4.7-6.1) M/uL Hgb (14.0-18.0) g/dL Hct (42-52) % MCV (80-100) fL MCH (25-34) pg MCHC (32-36) g/dL RDW Std Deviation (36.4-46.3) fL RDW Coeff of Dandy (11.5-14.5) % Plt Count (130-400) K/uL MPV (7.4-10.4) fL Immature Gran % (Auto) % Neut % (Auto) % Lymph % (Auto) % Cooper % (Auto) % Eos % (Auto) % Baso % (Auto) % Neut # (Auto) (1.4-6.5) K/uL Lymph # (Auto) (1.2-3.4) K/uL Cooper # (Auto) (0.11-0.59) K/uL Eos # (Auto) (0-0.5) K/uL Baso # (Auto) (0-0.2) K/uL Immature Gran # (Auto) (0.00-0.02) K/uL PT (9.0-12.0) Seconds INR (0.9-1.1) APTT (21.0-31.0) Seconds PTT Ratio Sodium (136-145) mmol/L Potassium (3.5-5.1) mmol/L Chloride (98-107) mmol/L Carbon Dioxide (21-32) mmol/L Anion Gap (3-11) BUN (7-18) mg/dl Creatinine (0.6-1.4) mg/dl Est Cr Clr Drug Dosing ml/min Est GFR ( Amer) ml/min Est GFR (Non-Af Amer) ml/min BUN/Creatinine Ratio (10-20) Glucose (70-99) mg/dl POC Glucose 36 L* (70-99) mg/dl Lactate (0.4-2.0) mmol/L Calcium (8.5-10.1) mg/dl Magnesium (1.8-2.4) mg/dl Total Bilirubin (0.2-1) mg/dl AST (15-37) U/L ALT (12-78) U/L Alkaline Phosphatase (45-117) U/L Troponin I (0-0.045) ng/ml Total Protein (6.4-8.2) gm/dl Albumin (3.4-5.0) gm/dl Globulin (2.5-4.0) gm/dl Albumin/Globulin Ratio (0.9-2) Procalcitonin (0-0.5) ng/ml TSH (0.300-4.500) uIu/ml Free T4 (0.8-1.6) ng/dl Random Cortisol mcg/dl Urine Color Urine Appearance (Clear) Urine pH (4.5-7.5) Ur Specific [place] (1.000-1.030) Urine Protein (Negative) Urine Glucose (UA) (Negative) Urine Ketones (Negative) Urine Blood (Negative) Urine Nitrite (Negative) Urine Bilirubin (Negative) Urine Urobilinogen (Negative) Ur Leukocyte Esterase (Negative) Urine WBC (Auto) (0-5) /hpf Urine RBC (Auto) (0-4) /hpf U Hyaline Cast (Auto) (0-5) /lpf U Epithel Cells (Auto) (0-5) /lpf Urine Bacteria (Auto) (Negative) Urine Opiates Screen (Neg) Ur Methadone, Qual (Neg) Urine Barbiturates (Neg) Ur Phencyclidine (PCP) (Neg) U Amphetamin/Meth Scrn (Neg) MDMA (Ecstasy) Screen (Neg) U Benzodiazepines Scrn (Neg) Ur Cocaine Metabolite (Neg) U Marijuana (THC) Screen (Neg) Ethyl Alcohol mg/dL (0-3) mg/dl COVID-19 Eval Order SARS-CoV-2 (PCR) (Negative) Administered Medications Glucose (Glucose 10 Tabs/Tube) 4 - 8 tabs PO UD PRN; Protocol PRN Reason: Hypoglycemia Protocol Stop: 05/14/21 23:25 Last Admin: 04/15/21 00:13 Dose: 4 tabs Documented by: [id number] Pantoprazole Sodium 40 mg/ (Syringe) 10 mls @ 5 mls/min IV BID [facility] Stop: 05/14/21 21:44 Last Admin: 04/14/21 22:19 Dose: 5 mls/min Documented by: [id number] Meropenem 500 mg/ Syringe 10 mls @ 2 mls/min IV Q8H GAMALIEL; Protocol Stop: 04/22/21 00:00 Last Admin: 04/15/21 00:37 Dose: 2 mls/min Documented by: [id number] Dextrose (D10w) 1,000 mls @ 175 mls/hr IV .Q5H43M [facility] Stop: 05/14/21 21:44 Last Infusion: 04/14/21 23:31 Dose: 175 mls/hr Documented by: [id number] Infusion: 04/14/21 22:49 Dose: 150 mls/hr Documented by: [id number] Admin: 04/14/21 21:59 Dose: 125 mls/hr Documented by: [id number] Hydrocortisone Sodium (Succinate 100 mg/ Syringe) 2 mls @ 4 mls/min IV Q6H GAMALIEL Stop: 05/15/21 00:00 Last Admin: 04/15/21 00:37 Dose: 4 mls/min Documented by: [id number] Miscellaneous (Carbohydrates For Hypoglycemia ) 15 - 30 gm PO UD PRN PRN Reason: Hypoglycemia Protocol Stop: 05/14/21 23:25 Last Admin: 04/14/21 23:18 Dose: 15 gm Documented by: [id number] Discontinued Medications Al Hydrox/Mg Hydrox/Simethicone (Gi Cocktail Ed Use) 1 dose PO ONE ONE Stop: 04/14/21 20:14 Last Admin: 04/14/21 20:26 Dose: 1 dose Documented by: [id number] Dextrose (Dextrose 50% 50 Ml Syringe) 25 ml IV NOW ONE Stop: 04/14/21 18:13 Last Admin: 04/14/21 18:40 Dose: 25 ml Documented by: [id number] Dextrose (Dextrose 50% 50 Ml Syringe) 25 ml IV NOW ONE Stop: 04/14/21 20:04 Last Admin: 04/14/21 20:15 Dose: 25 ml Documented by: [id number] Dextrose (Dextrose 50% 50 Ml Syringe) 50 ml IV NOW ONE Stop: 04/14/21 21:32 Last Admin: 04/14/21 21:35 Dose: 50 ml Documented by: [id number] Famotidine (Famotidine 20mg/5ml Iv Push) 20 mg IV ONE STA Stop: 04/14/21 19:04 Last Admin: 04/14/21 19:08 Dose: 20 mg Documented by: [id number] Sodium Chloride (Nss 1000ml) 1,000 mls @ 999 mls/hr IV .Q1H1M GAMALIEL Stop: 04/14/21 19:15 Last Infusion: 04/14/21 19:48 Dose: 0 mls/hr Documented by: [id number] Admin: 04/14/21 18:47 Dose: 999 mls/hr Documented by: [id number] Clindamycin Phosphate 900 mg/ (Dextrose) 56 mls @ 112 mls/hr IV ONE ONE Stop: 04/14/21 18:43 Last Infusion: 04/14/21 21:36 Dose: 0 mls/hr Documented by: [id number] Infusion: 04/14/21 19:04 Dose: 0 mls/hr Documented by: [id number] Admin: 04/14/21 18:47 Dose: 112 mls/hr Documented by: [id number] Dextrose/Sodium Chloride (D5w And 1/2nss) 1,000 mls @ 200 mls/hr IV .Q5H STA Stop: 04/15/21 01:02 Last Infusion: 04/14/21 21:59 Dose: 0 mls/hr Documented by: [id number] Admin: 04/14/21 20:15 Dose: 150 mls/hr Documented by: [id number] Daptomycin 300 mg/ Syringe 6 mls @ 3 mls/min IV ONE ONE; Protocol Stop: 04/14/21 22:01 Last Admin: 04/14/21 22:19 Dose: 3 mls/min Documented by: [id number] Imaging Data Radiologist's Impression: Chest X-Ray 04/14/21 18:12 XR chest 1V portable HISTORY: SEPSIS COMPARISON: Chest CT 06/27/2018. FINDINGS: No focal lung consolidations to suggest pneumonia. No evidence for pulmonary edema. There are low lung volumes. The cardiac silhouette is borderline enlarged. No pleural effusions. No pneumothorax. Old, healed right- sided rib fractures. IMPRESSION: No acute process. ACT 112: Negative or not required by law. Electronically signed by: Pierre Javier M.D. 04/14/2021 8:46 PM Discharge Plan Visit Data Chief Complaint: Hypoglycemia Stated Complaint: HYPOGLYCEMIA ED Provider: Clyde Clifford Discharge Problem: Hypoglycemia, Rigors, Acute hyponatremia, MAGDIEL (acute kidney injury) Patient Disposition: Admitted As Inpatient Condition: Fair Discharge Instructions Interventions: ED Discharge Assessment Last Done: 04/14/21 22:50
[2021-04-14 18:52] LABS: Basophils # (auto) 0.02 K/uL (0-0.2); Basophils % (auto) 0.1 %; Eosinophils # (auto) 0.01 K/uL (0-0.5); Eosinophils % (auto) 0.1 %; Hematocrit (blood only) 36.8 % (42-52); Hemoglobin 12.5 g/dL (14.0-18.0); Immature Granulocytes # (auto) 0.02 K/uL (0.00-0.02); Immature Granulocytes % (auto) 0.1 %; Lymphocytes # (auto) 1.04 K/uL (1.2-3.4); Lymphocytes % (auto) 7.7 %; Mean Corpuscular Hemoglobin 32.8 pg (25-34); Mean Corpuscular Volume 96.6 fL (80-100); Mean Platelet Volume 9.9 fL (7.4-10.4); Monocytes # (auto) 0.92 K/uL (0.11-0.59); Monocytes % (auto) 6.9 %; Neutrophils # (auto) 11.41 K/uL (1.4-6.5); Neutrophils % (auto) 85.1 %; Platelet Count 286 K/uL (130-400); RDW Coefficient of Variation 13.4 % (11.5-14.5); RDW Standard Deviation 47.2 fL (36.4-46.3); Red Blood Count 3.81 M/uL (4.7-6.1); White Blood Count 13.42 K/uL (4.8-10.8)
[2021-04-14 19:03] LABS: INR 1.1 (0.9-1.1); Partial Thromboplastin Ratio 1.1; Partial Thromboplastin Time 29.9 Seconds (21.0-31.0); Prothrombin Time 11.3 Seconds (9.0-12.0)
[2021-04-14] MEDS ORDERED: FAMOTIDINE 20MG/5ML IV PUSH IV STA (19:03)
[2021-04-14 19:10] LABS: Alanine Aminotransferase 17 U/L (12-78); Albumin Level 3.8 gm/dl (3.4-5.0); Aspartate Aminotransferase 10 U/L (15-37); BUN Creatinine Ratio 20.5 (10-20); Blood Urea Nitrogen 43 mg/dl (7-18); Calcium 8.4 mg/dl (8.5-10.1); Carbon Dioxide 24 mmol/L (21-32); Chloride 103 mmol/L (98-107); Creatinine Clr Calc Pharmacy 46.6 ml/min; Est GFR (African American) 39.2 ml/min; Est GFR (Non-African American) 33.8 ml/min; Glucose 104 mg/dl (70-99); Magnesium 2.1 mg/dl (1.8-2.4); Potassium 4.3 mmol/L (3.5-5.1); Sodium 133 mmol/L (136-145)
[2021-04-14 19:15] LABS: Alkaline Phosphatase 64 U/L (45-117); Bilirubin,Total 0.4 mg/dl (0.2-1); Globulin 3.9 gm/dl (2.5-4.0); Total Protein 7.7 gm/dl (6.4-8.2); Troponin I < 0.015 ng/ml (0-0.045)
[2021-04-14 19:23] LABS: Appearance Urine Clear (Clear); Bacteria Urine Automated Negative (Negative); Bilirubin Urine Negative (Negative); Blood Urine Negative (Negative); Cast Urine Automated 0 /lpf (0-5); Color Urine Yellow; Epithelial Cell Urine Auto 0-5 /lpf (0-5); Glucose Urine UA Negative (Negative); Ketones Urine Negative (Negative); Leukocyte Esterase Urine Negative (Negative); Nitrite Urine Negative (Negative); Protein Urine 1+ (Negative); RBC Urine Automated 0-4 /hpf (0-4); Specific Gravity Urine 1.011 (1.000-1.030); Urobilinogen Urine Negative (Negative); WBC Urine Automated 0 /hpf (0-5)
[2021-04-14] MEDS ORDERED: D5W AND 1/2NSS 1,000 ML IV STA (20:03)
[2021-04-14] MEDS ORDERED: GI COCKTAIL ED USE PO ONE (20:13)
--- NOTE | 2021-04-14 20:48 | XRay Report ---
XR chest 1V portable HISTORY: SEPSIS COMPARISON: Chest CT 06/27/2018. FINDINGS: No focal lung consolidations to suggest pneumonia. No evidence for pulmonary edema. There a re low lung volumes. The cardiac silhouette is borderline enlarged. No pleural effusions. No pneumoth orax. Old, healed right-sided rib fractures. IMPRESSION: No acute process. ACT 112: Negative or not required by law. Electronically signed by: Pierre Javier M.D. 04/14/2021 8:46 PM
[2021-04-14] MEDS ORDERED: MEROPENEM CONSULT ACITVE PRN (21:24)
[2021-04-14 21:37] LABS: Amphetamines+Metham, Urine Neg (Neg); Barbiturates, Urine Neg (Neg); Benzodiazepine, Urine Neg (Neg); Cocaine, Urine Neg (Neg); MDMA (Ecstacy), Urine Neg (Neg); Methadone, Urine Neg (Neg); Opiate, Urine Neg (Neg); Phencyclidine, Urine Neg (Neg)
--- NOTE | 2021-04-14 21:37 | History & Physical Report ---
Date of Service April 14, 2021 Assessment & Plan (1) Hypoglycemia: Plan: Severe Acute recurring hypoglycemia in the setting of biguanide, TZD, and sulfonylurea- - Alcohol level <3.0 - Urine Tox screen negative - TSH 0.226 with T4 1.04 - Cortisol random- 12.45 - C-peptide sen- however this is a send out. >0.2 suggests elevated secretion by the pancreas - D10 infusion started after failing to maintain glucose on D5 and eating short and long lasting carbohydrates - If continues to drop increase D10 titrate up to 200ml/hr - Hydrocortisone 100mg IV q6 - glucagon if continues to fall- to assist with BB and beta cells of pancreas - Continue oral intake with long lasting carbohydrate- this will be most effective (2) Wound of foot: Plan: Diabetic ulcer- appears at healing stage, however WBC 13 with a NLR 11:1 - meropenem 1GM q12 - Daptomycin 4mg/kg - de-escalate when septic picture becomes more evidently clear (3) Hyperlipidemia: Plan: No acute needs, continue statin (4) Diabetes mellitus, type 2: Plan: As above- once clinically controlled and stabilizes, re-evaluate his regimen - Patient reports he does not normally check his glucose levels at home (5) GERD (gastroesophageal reflux disease): Plan: Protonix 40 mg IV BID History of Present Illness Primary Care Provider: NO PCP 60 YOM with past medical history of: COPD, HTN, HLD, DMII, PAD, smoker current, ETOH misuse. Patient is on metformin and Actos on his medication rec, he also was previously on glimepiride. 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 He reports that he ate granolla bar at 500 this monring, then at 0900 he had a peanut butter bagel and another granola bar; at 1300 he had a turkey wrap, he drank coffee and water today. Patient referred to the EMD today after following up with his scientific specialist in regards to a foot ulceration he got while wearing a CAMboot following a broken foot. He reportedly was not acting right at the office so they checked his blood sugar and was reportedly 20, he came to the [facility] and was given juice and crackers with a re-check glucose of 70 which then decreased to 48. Again he was given crackers and D50%, continue to be hypoglycemic and was started on D51/2NS at 150ml/hr and BG was rechecked and at the 104. He was then given a turkey sandwich and carton of milk. BG was rechecked 15 minutes after eating and reported as 38, serum confirmation pending. He was given amp d50, and changed to D10. He has been treated for local cellulitis with Clindamycin and received another dose in the [facility]. Blood cultures are ordered. Urine negative. Toxicology screen sent, c-peptide, cortisol, TSH, are pending. Patient will be admitted for continued hypoglycemia with BG checks q2 hours and covered for possible infection of his foot in regards to his hypoglycemia as well. Primary suspicion is this is all related to his multiple agents including his BB. Patient does not have a gap, lactate is normal. Closely follow. Patient is unsure of his allergy to PCN. He was also prophylactically placed on Apixaban for his broken foot, smoking risk, and cam boot for VTE prophylaxis, this was then changed to Xarelto 10mg daily. This will be held and will obtain Doppler. Allergies Allergy/AdvReac Type Severity Reaction Status Date / Time Penicillins Allergy Severe CHILD Verified 04/15/21 15:14 sulfamethoxazole Allergy Intermediate RASH Verified 04/14/21 17:55 trimethoprim Allergy Intermediate RASH Verified 04/14/21 17:55 Home Medications Medication Instructions Recorded Confirmed Type aspirin 81 mg chewable tablet 81 mg PO QAM 07/15/18 04/14/21 History cilostazol 100 mg tablet 100 mg PO BID 07/15/18 04/14/21 History gabapentin 800 mg tablet 800 mg PO TID 07/15/18 04/14/21 History lisinopril 5 mg tablet 5 mg PO QAM 07/15/18 04/14/21 History metformin 1,000 mg tablet 1,000 mg PO BID 07/15/18 04/14/21 History metoprolol succinate 50 mg 50 mg PO QAM 07/15/18 04/14/21 History tablet,extended release 24 hr omeprazole 20 mg tablet,delayed 20 mg PO DAILY PRN 07/15/18 04/14/21 History release pioglitazone 45 mg tablet (Actos) 45 mg PO QAM 07/15/18 04/14/21 History rosuvastatin 20 mg tablet (Crestor) 20 mg PO HS 07/15/18 04/14/21 History clindamycin HCl 150 mg capsule 450 mg PO Q8 04/14/21 04/14/21 History rivaroxaban 10 mg tablet (Xarelto) 10 mg PO DAILY 04/14/21 04/14/21 History blood sugar diagnostic (OneTouch #50 ea 04/15/21 Rx Verio test strips) blood-glucose meter (OneTouch #1 ea 04/15/21 Rx Verio Meter) glucagon 1 mg solution for 1 mg IM ONCE #1 ea 04/15/21 Rx injection (Glucagon Emergency Kit) lancets 30 gauge (OneTouch Delica #100 ea 04/15/21 Rx Lancets) Past Med/Surg History Medical History Chronic obstructive pulmonary disease Diabetes mellitus, type 2 GERD (gastroesophageal reflux disease) Gout Hyperlipidemia Hypertension Hypoglycemia Osteoarthritis Peripheral neuropathy Scoliosis Surgical History History of carpal tunnel release RT History of cataract surgery LEFT History of colonoscopy History of esophagogastroduodenoscopy (EGD) History of hand surgery RT TENDON RELEASE History of repair of rotator cuff RT X 2 History of tooth extraction Family History Mother Family history of diabetes mellitus Social History Smoking Status: Current every day smoker Tobacco Type: Cigarettes Cigarettes Per Day: 20-40; Second Hand Exposure: No; Do You Dip or Chew Tobacco: No; Tobacco Cessation Education Requested by Patient: No Hx Alcohol Use: No Hx Substance Use: No Preferred Language: Setswana Communication Ability: Effective Ophthalmic Surgeon Required: No Beliefs That Will Affect Care: None Current Living Situation: Family Other Information That Helps Us Care for You: No Feels Safe at Home: Yes Safety Concerns: Feels Safe At This Time Assistive Devices: Glasses Review of Systems Review of Systems: Patient mentation not able to provide full accurate HPI Physical Exam Physical Exam: PHYSICAL EXAM: General: Somnolent awakes to voice, if can keep BG up he is appropriate Head: Normocephalic, atraumatic ENT: PERRL, EOMI, no pharyngeal exudate, mucous membranes moist Neuro: AAO x 3, speech slurry to accurate depending on glucose level, strength intact bilaterally 5/5, sensation intact and equal all extremities and dermatomes, no pronator drift Chest: equal rise and fall of the chest, no accessory muscle use, no heaves or thrills, Clear to auscultation, on room air, Cardiac: Regular rate and rhythm, telemetry reviewed, skin warm dry, cap refill <3 seconds, peripheral pules +2 no JVD, no murmur, no JVD, no edema GI: NABS x 4 quadrants, soft, nontender to palpation, no rebound, guarding or tenderness : Spontaneously voiding, no pain, no CVA tenderness, Extremities: right foot with old blister uncovered with healthy tissue underneath, no fluctuance but with slight red streak going to medial arch up medial side of foot, calfs nontender to palpation Psych: delayed affect Skin: no rash or erythema Results & Data Results & Data ([facility]) Vital Signs (Past 12 Hours) Vital Signs Temp Pulse Pulse Resp BP BP Pulse Ox 04/14/21 21:00 93 H 18 04/14/21 20:50 85 18 04/14/21 20:40 88 17 04/14/21 20:30 86 23 04/14/21 20:27 20 04/14/21 20:20 88 24 04/14/21 20:10 87 16 04/14/21 20:01 87 29 H 04/14/21 19:01 92 H 21 149/57 H 04/14/21 18:48 90 98 H 20 131/68 98 04/14/21 18:46 94 H 23 131/68 04/14/21 17:41 36.6 C 92 H 92 H 22 193/133 H 193/133 H 99 04/14/21 17:35 96 H 15 193/133 H Laboratory Results Abnormal Labs 04/14/21 04/14/21 04/14/21 18:18 18:36 18:36 WBC 13.42 H RBC 3.81 L Hgb 12.5 L Hct 36.8 L RDW Std Deviation 47.2 H Neut # (Auto) 11.41 H Lymph # (Auto) 1.04 L [place] # (Auto) 0.92 H Sodium 133 L BUN 43 H Creatinine 2.07 H BUN/Creatinine Ratio 20.5 H Glucose 104 H POC Glucose 53 L* Calcium 8.4 L AST 10 L Urine Protein 04/14/21 04/14/21 04/14/21 18:38 19:00 20:02 WBC RBC Hgb Hct RDW Std Deviation Neut # (Auto) Lymph # (Auto) [place] # (Auto) Sodium BUN Creatinine BUN/Creatinine Ratio Glucose POC Glucose 155 H 42 L* Calcium AST Urine Protein 1+ H 04/14/21 04/14/21 04/14/21 20:19 21:28 21:29 WBC RBC Hgb Hct RDW Std Deviation Neut # (Auto) Lymph # (Auto) [place] # (Auto) Sodium BUN Creatinine BUN/Creatinine Ratio Glucose POC Glucose 108 H 42 L* 36 L* Calcium AST Urine Protein Diagnostic Findings Chest X-Ray 04/14/21 18:12 XR chest 1V portable HISTORY: SEPSIS COMPARISON: Chest CT 06/27/2018. FINDINGS: No focal lung consolidations to suggest pneumonia. No evidence for pulmonary edema. There are low lung volumes. The cardiac silhouette is borderline enlarged. No pleural effusions. No pneumothorax. Old, healed right- sided rib fractures. IMPRESSION: No acute process. Electronically signed by: Pierre Javier M.D. 04/14/2021 8:46 PM Medications Administered Dextrose/Sodium Chloride (D5w And 1/2nss) 1,000 mls @ 200 mls/hr IV .Q5H STA Stop: 04/15/21 01:02 Last Infusion: 04/14/21 21:59 Dose: 0 mls/hr Documented by: [id number] Admin: 04/14/21 20:15 Dose: 150 mls/hr Documented by: [id number] Dextrose (D10w) 1,000 mls @ 125 mls/hr IV .Q8H GAMALIEL Stop: 05/14/21 21:44 Last Admin: 04/14/21 21:59 Dose: 125 mls/hr Documented by: [id number] Discontinued Medications Al Hydrox/Mg Hydrox/Simethicone (Gi Cocktail Ed Use) 1 dose PO ONE ONE Stop: 04/14/21 20:14 Last Admin: 04/14/21 20:26 Dose: 1 dose Documented by: [id number] Dextrose (Dextrose 50% 50 Ml Syringe) 25 ml IV NOW ONE Stop: 04/14/21 18:13 Last Admin: 04/14/21 18:40 Dose: 25 ml Documented by: [id number] Dextrose (Dextrose 50% 50 Ml Syringe) 25 ml IV NOW ONE Stop: 04/14/21 20:04 Last Admin: 04/14/21 20:15 Dose: 25 ml Documented by: [id number] Dextrose (Dextrose 50% 50 Ml Syringe) 50 ml IV NOW ONE Stop: 04/14/21 21:32 Last Admin: 04/14/21 21:35 Dose: 50 ml Documented by: [id number] Famotidine (Famotidine 20mg/5ml Iv Push) 20 mg IV ONE STA Stop: 04/14/21 19:04 Last Admin: 04/14/21 19:08 Dose: 20 mg Documented by: [id number] Sodium Chloride (Nss 1000ml) 1,000 mls @ 999 mls/hr IV .Q1H1M GAMALIEL Stop: 04/14/21 19:15 Last Infusion: 04/14/21 19:48 Dose: 0 mls/hr Documented by: [id number] Admin: 04/14/21 18:47 Dose: 999 mls/hr Documented by: [id number] Clindamycin Phosphate 900 mg/ (Dextrose) 56 mls @ 112 mls/hr IV ONE ONE Stop: 04/14/21 18:43 Last Infusion: 04/14/21 21:36 Dose: 0 mls/hr Documented by: [id number] Infusion: 04/14/21 19:04 Dose: 0 mls/hr Documented by: [id number] Admin: 04/14/21 18:47 Dose: 112 mls/hr Documented by: [id number] ECG Additional Comments: Normal sinus rhythm Normal ECG When compared with ECG of 14-APR-2021 18:32, (unconfirmed) Premature ventricular complexes are no longer Present Premature atrial complexes are no longer Present Code Status & VTE Plan Code Status CODE: FULL VTE: SCDS. Heparin Critical Care Time CC: time 30 minutes critical care time in direct support of hypoglycemia, laboratory assessment, chart review and direct patient care Supervising Physician Co-Signing Physician Notes Attending addendum: I have physically seen this patient, have supervised the HAILEY's activities, and agree with the H&P unless as otherwise noted. Assessment and Plan: Severe hypoglycemia- Hold all oral diabetic medications: Metformin, glimepiride and pioglitazone. The patient had been referred to the ED from the outpatient physician office, where his blood sugars were found to be in the 20s. Patient continued to have episodes dropping into the 30s in spite of giving amps of D50 and had been placed on D5W. Patient has been placed on D10, with blood sugar checks every 2 hours, and will see if stress dose hydrocortisone as well. Patient is not a good candidate for any oral hypoglycemic agents, and likely, if he were medically compliant, would be a candidate for insulin. Diabetic foot ulcer- Placed on daptomycin IV and meropenem IV Consult wound care Remaining orders and notations as noted PG Care Time/CCT Total # of Minutes Spent Total Time Spent with Patient: Total time spent is greater than 50% in coordination of care (as documented) at patient's floor/unit and/or counseling patient: Coding Level of Care Code 24216 Initial Inpt Care Lvl 3 Diagnoses Hypoglycemia E16.2 Wound of foot S91.309A Hyperlipidemia E78.5 Diabetes mellitus, type 2 E11.9 GERD (gastroesophageal reflux disease) K21.9
[2021-04-14] MEDS: DEXTROSE 10% 1,000 ML IV SCH (21:59)
[2021-04-14] MEDS ORDERED: DAPTOmycin 300 MG in SYRINGE 0 ML IV ONE (22:00)
[2021-04-14 22:05] LABS: Thyroid Stimulating Hormone 0.226 uIu/ml (0.300-4.500)
[2021-04-14 22:18] LABS: T4 Free Thyroxine 1.04 ng/dl (0.8-1.6)
[2021-04-14] MEDS: PANTOprazole 40 MG in SYRINGE 0 ML IV SCH (22:19)
[2021-04-14] MEDS ORDERED: D5W AND 1/2NSS 1,000 ML IV SCH (23:26)
[2021-04-14] MEDS ORDERED: CARBOHYDRATES FOR HYPOGLYCEMIA PO PRN (23:26)
[2021-04-14] MEDS ORDERED: GLUCOSE 10 TABS/TUBE PO PRN (23:26)
[2021-04-14] MEDS ORDERED: GLUCOSE 40% GEL 15 GM TUBE PO PRN (23:26)
[2021-04-14] MEDS ORDERED: GLUCAGON FOR INJ 1 MG VIAL SQ PRN (23:26)
[2021-04-14] MEDS ORDERED: ONDANSETRON INJ 2 MG/ML 2 ML VIAL IV PRN (23:26)
[2021-04-14] MEDS ORDERED: DEXTROSE 50% 50 ML SYRINGE IV PRN (23:26)
[2021-04-15] MEDS ORDERED: HYDROCORTISONE SOD SUCCINATE 100 MG/2 ML VIAL IV SCH
[2021-04-15] MEDS: MEROPENEM 500 MG in SYRINGE 0 ML IV SCH ×2 (00:37→08:32)
[2021-04-15] MEDS: HYDROCORTISONE SOD 100 MG in SYRINGE 0 ML IV SCH ×2 (00:37→05:46)
[2021-04-15] MEDS: DEXTROSE 10% 1,000 ML IV SCH ×2 (03:24→10:50)
[2021-04-15 06:54] LABS: Basophils # (auto) 0.01 K/uL (0-0.2); Basophils % (auto) 0.1 %; Eosinophils # (auto) 0.01 K/uL (0-0.5); Eosinophils % (auto) 0.1 %; Hemoglobin 11.7 g/dL (14.0-18.0); Immature Granulocytes # (auto) 0.01 K/uL (0.00-0.02); Immature Granulocytes % (auto) 0.1 %; Lymphocytes # (auto) 0.78 K/uL (1.2-3.4); Lymphocytes % (auto) 6.5 %; Mean Corpuscular Hemoglobin 32.4 pg (25-34); Mean Corpuscular Hgb Conc 33.4 g/dL (32-36); Mean Platelet Volume 9.9 fL (7.4-10.4); Monocytes # (auto) 0.54 K/uL (0.11-0.59); Monocytes % (auto) 4.5 %; Neutrophils # (auto) 10.56 K/uL (1.4-6.5); Neutrophils % (auto) 88.7 %; Platelet Count 258 K/uL (130-400); RDW Coefficient of Variation 13.3 % (11.5-14.5); RDW Standard Deviation 47.2 fL (36.4-46.3); Red Blood Count 3.61 M/uL (4.7-6.1); White Blood Count 11.91 K/uL (4.8-10.8)
--- NOTE | 2021-04-15 07:03 | Ultrasound Report ---
US venous doppler LE BI CLINICAL HISTORY: Bilateral leg swelling COMPARISON STUDY: No previous studies for comparison. FINDINGS: Real-time and color flow Doppler imaging were performed. Flow was seen within the femoral, popliteal and calf veins with no intraluminal thrombus demonstrated. The saphenous vein is patent. IMPRESSION: No evidence of lower extremity DVT. ACT 112: Negative or not required by law. Electronically signed by: Chin Leonardo M.D. 04/15/2021 7:01 AM
--- NOTE | 2021-04-15 07:05 | XRay Report ---
XR foot RT 2V HISTORY: 60 years-old Male evaluate for infection and evaluate past fracture acute right-sided foot pain COMPARISON: Right foot radiographs of same day at 3:53 PM and also right foot radiographs 03/15/2021, MRI of the right foot 03/09/2021 TECHNIQUE: 2 views of the right foot FINDINGS: Unchanged alignment of the transverse fracture involving the base of the fifth metatarsal. Fracture d istraction measures up to 2 mm along the volar margin. Mild to moderate first MTP joint osteoarthriti s. There is mild multifocal osteoarthritis without acute fracture, dislocation or osseous erosion. Mi ld tibiotalar osteoarthritis. Large enthesophyte of the calcaneus at the Achilles insertion site. Art erial calcifications. IMPRESSION: Unchanged alignment of the subacute to chronic appearing fracture involving the base of t he fifth metatarsal. ACT 112: Negative or not required by law. The above report was generated using voice recognition software. It may contain grammatical, syntax o r spelling errors. Electronically signed by: Garrett Kay M.D. 04/15/2021 7:03 AM
[2021-04-15 07:47] LABS: BUN Creatinine Ratio 21.3 (10-20); Calcium 8.1 mg/dl (8.5-10.1); Creatinine Clr Calc Pharmacy 56.9 ml/min; Est GFR (African American) 52.3 ml/min; Est GFR (Non-African American) 45.1 ml/min; Magnesium 2.1 mg/dl (1.8-2.4); Potassium 5.6 mmol/L (3.5-5.1)
[2021-04-15] MEDS ORDERED: PATIROMER CALCIUM SORBITEX 8.4 GM PACK PO ONE (08:00)
--- NOTE | 2021-04-15 08:01 | Hospitalist Progress Note ---
Date of Service April 15, 2021 Assessment & Plan (1) Hypoglycemia: Plan: Severe Acute recurring hypoglycemia in the setting of biguanide, TZD, and sulfonylurea- - Alcohol level <3.0 - Urine Tox screen negative - TSH 0.226 with T4 1.04 - Cortisol random- 12.45 - C-peptide sen- however this is a send out. >0.2 suggests elevated secretion by the pancreas - D10 infusion started after failing to maintain glucose on D5 and eating short and long lasting carbohydrates - If continues to drop increase D10 titrate up to 200ml/hr - Hydrocortisone 100mg IV q6 - glucagon if continues to fall- to assist with BB and beta cells of pancreas - Continue oral intake with long lasting carbohydrate- this will be most effective (2) Wound of foot: Plan: Diabetic ulcer- appears at healing stage, however WBC 13 with a NLR 11:1 - meropenem 1GM q12 - Daptomycin 4mg/kg - de-escalate when septic picture becomes more evidently clear (3) Hyperlipidemia: Plan: No acute needs, continue statin (4) Diabetes mellitus, type 2: Plan: As above- once clinically controlled and stabilizes, re-evaluate his regimen - Patient reports he does not normally check his glucose levels at home (5) GERD (gastroesophageal reflux disease): Plan: Protonix 40 mg IV BID Admission and Anticipated Discharge Date Admission Date: April 14, 2021 Physical Exam Physical Exam: PHYSICAL EXAM: General: Somnolent awakes to voice, if can keep BG up he is appropriate Head: Normocephalic, atraumatic ENT: PERRL, EOMI, no pharyngeal exudate, mucous membranes moist Neuro: AAO x 3, speech slurry to accurate depending on glucose level, strength intact bilaterally 5/5, sensation intact and equal all extremities and dermatomes, no pronator drift Chest: equal rise and fall of the chest, no accessory muscle use, no heaves or thrills, Clear to auscultation, on room air, Cardiac: Regular rate and rhythm, telemetry reviewed, skin warm dry, cap refill <3 seconds, peripheral pules +2 no JVD, no murmur, no JVD, no edema GI: NABS x 4 quadrants, soft, nontender to palpation, no rebound, guarding or tenderness : Spontaneously voiding, no pain, no CVA tenderness, Extremities: right foot with old blister uncovered with healthy tissue underneath, no fluctuance but with slight red streak going to medial arch up medial side of foot, calfs nontender to palpation Psych: delayed affect Skin: no rash or erythema Results & Data Results & Data ([facility]) Vital Signs (Past 12 Hours) Vital Signs Temp Pulse Pulse Resp BP BP Pulse Ox 04/15/21 02:36 37.2 C 87 19 106/55 L 95 04/15/21 00:32 94 H 04/14/21 23:32 36.8 C 92 H 22 114/55 L 96 04/14/21 22:50 87 16 86/53 L 98 04/14/21 21:40 98 04/14/21 21:00 93 H 90 20 114/57 L 98 04/14/21 20:50 85 18 04/14/21 20:40 88 17 04/14/21 20:30 86 23 04/14/21 20:27 20 04/14/21 20:20 88 24 04/14/21 20:10 87 16 04/14/21 20:01 87 29 H PG Care Time/CCT Total # of Minutes Spent Total Time Spent with Patient: Total time spent is greater than 50% in coordination of care (as documented) at patient's floor/unit and/or counseling patient: Coding Diagnoses Hypoglycemia E16.2 Wound of foot S91.309A Hyperlipidemia E78.5 Diabetes mellitus, type 2 E11.9 GERD (gastroesophageal reflux disease) K21.9
[2021-04-15] MEDS ORDERED: PHARMACY GLYCEMIC MGMT CONSULT SCH (08:15)
[2021-04-15 08:20] LABS: Estimated Average Glucose 154 mg/dl
[2021-04-15] MEDS: PANTOprazole 40 MG in SYRINGE 0 ML IV SCH (08:32)
[2021-04-15] MEDS ORDERED: ASPIRIN 81 MG CHEW PO SCH (09:00)
[2021-04-15] MEDS ORDERED: GABAPENTIN 800 MG TAB PO SCH (09:00)
[2021-04-15] MEDS ORDERED: cilostazoL 100 MG TAB PO SCH (09:00)
[2021-04-15] MEDS ORDERED: ACETAMINOPHEN 325 MG TAB PO PRN (09:50)
[2021-04-15] MEDS ORDERED: NICOTINE 14 MG/24 HR PATCH TD SCH (10:15)
--- NOTE | 2021-04-15 10:27 | Discharge Summary ---
Date of Service April 15, 2021 Admission HPI Per Admitting Provider 60 YOM with past medical history of: COPD, HTN, HLD, DMII, PAD, smoker current, ETOH misuse. Patient is on metformin and Actos on his medication rec, he also was previously on glimepiride. 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 He reports that he ate granolla bar at 500 this monring, then at 0900 he had a peanut butter bagel and another granola bar; at 1300 he had a turkey wrap, he drank coffee and water today. Patient referred to the EMD today after following up with his psychologist private practice in regards to a foot ulceration he got while wearing a CAMboot following a broken foot. He reportedly was not acting right at the office so they checked his blood sugar and was reportedly 20, he came to the EMD and was given juice and crackers with a re-check glucose of 70 which then decreased to 48. Again he was given crackers and D50%, continue to be hypoglycemic and was started on D51/2NS at 150ml/hr and BG was rechecked and at the 104. He was then given a turkey sandwich and carton of milk. BG was rechecked 15 minutes after eating and reported as 38, serum confirmation pending. He was given amp d50, and changed to D10. He has been treated for local cellulitis with Clindamycin and received another dose in the EMD. Blood cultures are ordered. Urine negative. Toxicology screen sent, c-peptide, cortisol, TSH, are pending. Patient will be admitted for continued hypoglycemia with BG checks q2 hours and covered for possible infection of his foot in regards to his hypoglycemia as well. Primary suspicion is this is all related to his multiple agents including his BB. Patient does not have a gap, lactate is normal. Closely follow. Patient is unsure of his allergy to PCN. He was also prophylactically placed on Apixaban for his broken foot, smoking risk, and cam boot for VTE prophylaxis, this was then changed to Xarelto 10mg daily. This will be held and will obtain Doppler. Principal Diagnosis Hypoglycemia Discharge Data Allergies Allergy/AdvReac Type Severity Reaction Status Date / Time Penicillins Allergy Severe CHILD Verified 04/15/21 15:14 sulfamethoxazole Allergy Intermediate RASH Verified 04/14/21 17:55 trimethoprim Allergy Intermediate RASH Verified 04/14/21 17:55 Consultations 04/14/21 20:30 ED Decision to Admit Stat Ordered Studies 04/15/21 US venous doppler LE BI Routine Hospital Course (1) Hypoglycemia: Severe Acute recurring hypoglycemia in the setting of biguanide, TZD, and sulfonylurea- - Alcohol level <3.0 - Urine Tox screen negative - TSH 0.226 with T4 1.04, Ft3 low --> rec repeating outpatient TFT in 4-6 weeks - Cortisol random- 12.45 - C-peptide sen- however this is a send out. >0.2 suggests elevated secretion by the pancreas - D10 infusion started after failing to maintain glucose on D5 and eating short and long lasting carbohydrates - Hydrocortisone 100mg IV q6 --> decreased and stopped altogether CT Head without acute process CTA/P without acute process to explain symptoms A1c 7.0 Discussed with pharmacy and registered pharmacy technician and decision made to hold his glimeperide at discharge as this could be accumulating given his CKD --> Patient demanded discharge today as he was alert/oriented BSGs up to 300s after steroids discontinued and given patient rx for glucometer, strips, and to check sugars at home and provided with alarm symptoms to when to return On Meropenem/Dapto while inpatient BCx pending at time of discharge Imaging with continued alignment, no evidence of bony destruction, non-painful Rec close follow up with Podiatry and education on keeping sugars controlled/more frequent meals as opposed to carb loading like he was doing before. Also talked with about possible Mary monitoring for easier checking of his sugars if covered by insurance (2) Wound of foot: Diabetic ulcer- appears at healing stage, however WBC 13 with a NLR 11:1 - meropenem 1GM q12 - Daptomycin 4mg/kg - de-escalate when septic picture becomes more evidently clear Back on his usual Clindamycin at discharge. 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 Educated on hypoglycemia and also sent for emergency glucagon to utilize as needed. 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: Resume 3 days after discharge Non-emergency contact: Primary Care Provider and Specialist Call non-emergency contact if: you have any medication questions Follow-up/Referrals: Herrera Galloway [Physician] - (1 week) PCP,NO [Primary Care Provider] - Diet: Carb Consistent or DM2 and Heart Healthy Ambulatory Orders: Basic Metabolic Panel (Routine) Timeframe: 2 Days Location: Determined by Patient Ordered By: Lizzie Chang Complete Blood Count with Diff (Timed) Timeframe: 2 Days Location: Determined by Patient Ordered By: Lizzie Chang Addtl Attending Provider Instructions: You have been hospitalized for low blood sugars. Medications have been provided and your metoprolol was held. CT of your head and abdomen and pelvis were performed which did not show any acute changes, however it is noted that you have significant atherosclerotic plaque and should be mindful of your diet/cholesterol and dietary changes recommended to decrease this issue. You may also want to discuss increasing your Crestor. It will be important to take your medications and bottles to follow up appointment to make sure you are on appropriate medications without taking extra doses. In the meantime, your GLIMEPIRIDE and PIOGLITAZONE are being held at discharge until your follow up appointment with your primary care provider. Your A1c was 7, which indicates good control and you should be monitoring your blood sugars at home to ensure no further lows. Please call your PCP if your blood sugars are less than 70 or greater than 350. You have also been sent a prescription of glucagon to administer if blood sugars are low and you should repeat your blood sugar to monitor and call your PCP with results. If remains low you may be instructed to go to the closest emergency department. You may also want to discuss about a Mary Monitor to help with ease of checking your blood sugars to prevent frequent finger sticks. You should follow up with podiatry for continued management of your fracture/ulcer. Please return to the emergency department with any fever, chills, chest pain, shortness of breath, or for any increased redness/drainage from your foot wound, or for any other symptoms that are concerning for you. You have been provided slips for repeat labs in the next 1-2 days to ensure stability. Please follow up with your primary care provider to monitor your progress since discharge. Your TSH was low but normal FT4 (free T4) and you should have this repeated in 4-6 weeks to ensure stabilized and that you do not need extra medications for this and this may just be some subclinical hyperthyroidism. It is recommended that you stay for an additional day of IV antibiotics, but given improvement of sugars and without evidence of infection at this time, you are being allowed discharge with close outpatient follow up. It has been a pleasure being a part of the medical team providing for you while you have been in the hospital. Take care! Pending Studies at Discharge: Yes Studies:: C- related peptide Stand-Alone Forms: My [facility] [place], Smoking Cessation Medications and DC Order Prescriptions: New (DME) lancets [OneTouch Delica Lancets] 30 gauge misc See Rx Instructions .ROUTE Qty: 100 RF: 0 (DME) blood-glucose meter [OneTouch Verio Meter] Misc See Rx Instructions .ROUTE Qty: 1 RF: 0 (DME) OneTouch Verio test strips Strip See Rx Instructions .ROUTE Qty: 50 RF: 0 Glucagon Emergency Kit (human) 1 mg recon soln 1 mg IM ONCE Qty: 1 RF: 0 Continued cilostazol 100 mg Tablet 100 mg PO BID RF: 0 metoprolol succinate 50 mg Tablet Extended Release 24 Hr 50 mg PO QAM RF: 0 pioglitazone [Actos] 45 mg Tablet 45 mg PO QAM RF: 0 gabapentin 800 mg Tablet 800 mg PO TID RF: 0 metformin 1,000 mg Tablet 1,000 mg PO BID RF: 0 aspirin 81 mg Tablet,Chewable 81 mg PO QAM RF: 0 lisinopril 5 mg Tablet 5 mg PO QAM RF: 0 rosuvastatin [Crestor] 20 mg Tablet 20 mg PO HS RF: 0 omeprazole 20 mg Tablet,Delayed Release (Dr/Ec) 20 mg PO DAILY PRN (Reason: Indigestion) RF: 0 clindamycin HCl 150 mg capsule 450 mg PO Q8 RF: 0 Xarelto 10 mg tablet 10 mg PO DAILY RF: 0 Discontinued glimepiride 4 mg Tablet 4 mg PO QAM RF: 0 Discharge Orders: Discharge Order (Routine); Ordered 04/15/21 Ordered By: Lizzie Rodriguez/Other Patient Handouts: Hypoglycemia (Low Blood Sugar) Admission Data Admit Date/Time: 04/14/21 21:39 Attending Provider: Abhishek Nuno Admit Provider: Keshav Peoples Primary Care Provider: PCP,NO Other Providers: Jimenez Agee Other Interventions: Discharge Summary Assessment (RN) Last Done: 04/15/21 15:36 Coding Level of Care Code D/C DAY MANAGEMENT >30 MINS Diagnoses Hypoglycemia E16.2 Wound of foot S91.309A Hyperlipidemia E78.5 Diabetes mellitus, type 2 E11.9 GERD (gastroesophageal reflux disease) K21.9
[2021-04-15] MEDS ORDERED: CALCIUM CHLORIDE 10% 1,000 MG in SODIUM CHLORIDE 0.9% 50 ML IV STA (10:50)
[2021-04-15] MEDS ORDERED: OPTIRAY 320 100ml IV ONE (12:28)
--- NOTE | 2021-04-15 12:59 | CT Scan Report ---
CT abd pelvis IV con only CLINICAL HISTORY: Diarrhea, hypoglycemia, change in mental status. COMPARISON STUDY: CT scan dated 01/14/2018 TECHNIQUE: The patient was scanned in a dynamic helical fashion during intravenous administration of 93 cc of Optiray 320 A dose lowering technique was utilized adhering to the principles of ALARA. CT DOSE: 1735.41 mGy.cm FINDINGS: Lower chest: There is a 3 mm pulmonary nodule within the lingula. This remain similar to a prior 2017 study Liver: The contrast-enhanced liver is normal in size, contour, and attenuation. There is no intrahepa tic biliary ductal dilatation. The hepatic veins and portal veins are patent. Gallbladder: Unremarkable. Spleen: Normal in size and attenuation. Pancreas: Unremarkable. Adrenal glands: Unremarkable. Kidneys: There are bilateral renal calcifications. While most likely represent atherosclerotic arteri al calcifications, a few tiny calculi cannot be excluded. There is no hydronephrosis. There are no so lid renal masses identified. Bowel: There are no transition zones to indicate bowel obstruction. There is no evidence of acute ever endicitis. There is colonic diverticulosis. There is no evidence of acute diverticulitis. Peritoneum: There is no intraperitoneal free air or abdominal ascites. Vasculature: There are aortoiliac atheromatous changes. There is no evidence of aneurysm Adenopathy: None. Pelvic viscera: There is mild prostatomegaly. There are prostatic calcifications present. Skeletal structures: No destructive osseous lesions are seen. IMPRESSION: 1. No evidence of bowel obstruction. No evidence of free air 2. No acute inflammatory changes. Diverticulosis. No evidence of acute diverticulitis. No evidence of acute appendicitis 3. Moderate aortoiliac atherosclerotic disease. 4. Bilateral renal calcifications, most of which likely represent vascular calcifications. It would b e difficult to exclude a few tiny renal calculi. ACT 112: Negative or not required by law. Electronically signed by: Chin Leonardo M.D. 04/15/2021 12:58 PM
--- NOTE | 2021-04-15 13:02 | CT Scan Report ---
HEAD CT NONCONTRAST CT DOSE: HISTORY: Altered mental status, hypoglycemia TECHNIQUE: Multiaxial CT images of the head were performed without the use of intravenous contrast. A utomated exposure control was utilized for this study. A dose lowering technique was utilized adheri ng to the principles of ALARA. Comparison: None. Findings: The paranasal sinuses and mastoid air cells are clear. The calvarium and skull base are int act. The ventricles and sulci are within normal limits. There is no mass, hematoma, midline shift, or acute infarct. Mild periventricular white matter hypodensity is nonspecific but favors mild microvas cular ischemic change. Impression: 1. No acute intracranial abnormality. 2. Mild periventricular white matter hypodensity is nonspecific but favors mild microvascular ischemi c change. ACT 112: Negative or not required by law. Electronically signed by: Pierre Javier M.D. 04/15/2021 1:01 PM
--- NOTE | 2021-04-15 13:12 | Electrocardiogram Report ---
Test Reason : Blood Pressure : / mmHG Vent. Rate : 093 BPM Atrial Rate : 093 BPM P-R Int : 146 ms QRS Dur : 064 ms QT Int : 346 ms P-R-T Axes : 063 047 064 degrees QTc Int : 430 ms Poor data quality, interpretation may be adversely affected Sinus rhythm with occasional Premature ventricular complexes and Premature atrial complexes Abnormal ECG When compared with ECG of 21-MAR-2017 13:54, Premature ventricular complexes are now Present Premature atrial complexes are now Present Confirmed by Solomon Staples ([id number]) on 04/15/2021 1:12:13 PM Referred By: REFERRED SELF Confirmed By:Star Staples
--- NOTE | 2021-04-15 13:12 | Electrocardiogram Report ---
Test Reason : Blood Pressure : / mmHG Vent. Rate : 090 BPM Atrial Rate : 090 BPM P-R Int : 154 ms QRS Dur : 066 ms QT Int : 340 ms P-R-T Axes : 057 051 076 degrees QTc Int : 415 ms Normal sinus rhythm Normal ECG When compared with ECG of 14-APR-2021 18:32, (unconfirmed) Premature ventricular complexes are no longer Present Premature atrial complexes are no longer Present Confirmed by Solomon Staples ([id number]) on 04/15/2021 1:12:22 PM Referred By: REFERRED SELF Confirmed By:Star Staples
[2021-04-15] MEDS ORDERED: HYDROCORTISONE SOD 100 MG in SYRINGE 0 ML IV SCH (14:00)
[2021-04-15 14:21] LABS: Hemoglobin 11.9 g/dL (14.0-18.0); Mean Corpuscular Hemoglobin 32.6 pg (25-34); Mean Corpuscular Volume 95.9 fL (80-100); Mean Platelet Volume 10.1 fL (7.4-10.4); Platelet Count 261 K/uL (130-400); RDW Coefficient of Variation 13.2 % (11.5-14.5); RDW Standard Deviation 46.4 fL (36.4-46.3); Red Blood Count 3.65 M/uL (4.7-6.1); White Blood Count 12.31 K/uL (4.8-10.8)
[2021-04-15 14:37] LABS: BUN Creatinine Ratio 19.1 (10-20); Calcium 9.1 mg/dl (8.5-10.1); Creatinine Clr Calc Pharmacy 56.9 ml/min; Est GFR (African American) 52.3 ml/min; Est GFR (Non-African American) 45.1 ml/min; Potassium 5.4 mmol/L (3.5-5.1)
[2021-04-15] MEDS ORDERED: PATIROMER CALCIUM SORBITEX 8.4 GM PACK PO STA (14:56)
[2021-04-15] MEDS ORDERED: DAPTOmycin 300 MG in SYRINGE 0 ML IV SCH (20:00)
[2021-04-15] MEDS ORDERED: ROSUVASTATIN CALCIUM 20 MG TAB PO SCH (21:00)
[2021-04-15] MEDS ORDERED: MEROPENEM 500 MG in SYRINGE 0 ML IV SCH (22:00)
== END 2021-04-15 16:25 | disposition home or self-care (01) ==
LOC: 2E 17:31 → ED 17:31 → SUATTDRO 21:39 → 2E 22:50
DX: K21.9 Gastro-esophageal reflux disease without esophagitis; F17.210 Nicotine dependence, cigarettes, uncomplicated; Z79.82 Long term (current) use of aspirin; J44.9 Chronic obstructive pulmonary disease, unspecified; Z79.84 Long term (current) use of oral hypoglycemic drugs; L97.509 Non-pressure chronic ulcer of other part of unspecified foot with unspecified severity; I10 Essential (primary) hypertension; Z79.01 Long term (current) use of anticoagulants; E11.621 Type 2 diabetes mellitus with foot ulcer; Z79.899 Other long term (current) drug therapy; E78.5 Hyperlipidemia, unspecified; E11.649 Type 2 diabetes mellitus with hypoglycemia without coma

== ENCOUNTER 2021-04-25 14:53 | Inpatient (IN) ==
--- NOTE | 2021-04-25 16:21 | Emergency Department Note ---
Impression & Plan Acute osteomyelitis of right foot, Diabetic foot ulcer ED Provider Note NAME: JONATHON WALKER AGE: 60 SEX: M : 1960 ARRIVES VIA: Walk-In INFORMANT: Patient, ED PROVIDER(S): Michoacano Madrid DO CHIEF COMPLAINT: Foot swelling HPI: The patient is a 60-year-old male who has a history of tobacco use as well as diabetes who presented to the emergency department with swelling of his right foot. The patient initially had a blister on the area that ruptured and then developed into a ulcer. He was placed on IV clindamycin as an outpatient. He was then started on oral Cipro this weekend because of cultures that were returned for Citrobacter. The patient states he has had worsening swelling and pain. He went back for a follow-up appointment today with the specialist who saw him and was sent directly to the emergency department. There was some concern the patient may have vascular insufficiency because of discoloration of the foot. He complains of significant pain and swelling of the foot. He is unable to ambulate because of pain. He denies having any vomiting but does complain of some nausea. He denies having any chest pain or difficulty breathing. The patient did not notice a fever but was febrile in triage. The patient has been taking all of his outpatient medications as previous. He has noticed some of his blood sugars have been out of control recently. Otherwise he has been compliant with all outpatient medications. ROS: See above HPI for pertinent positives & negatives. A total of 10 systems reviewed and were otherwise negative. PAST MEDICAL HISTORY: See Below PAST SURGICAL HISTORY: See Below FAMILY HISTORY: See Below SOCIAL HISTORY: See Below HOME MEDICATIONS: See Below ALLERGIES: See Below VITALS: See Below PHYSICAL EXAMINATION: GENERAL: The patient is awake and alert. He appears to be uncomfortable. EYES: The conjunctivae are clear. The pupils are round and reactive. EARS, NOSE, MOUTH AND THROAT: The nose is without any evidence of any deformity. NECK: The neck is nontender and supple. RESPIRATORY: Normal respiratory effort is noted there is no evidence of wheezing rhonchi or rales CARDIOVASCULAR: Regular rate and rhythm noted there no murmurs rubs or gallops normal S1 normal S2. GASTROINTESTINAL: The abdomen is soft. Abdomen is nontender. MUSCULOSKELETAL/EXTREMITIES: There is no evidence of gross deformity full range of motion is noted in the hips and shoulders. SKIN: There is significant swelling over the right foot. There is a diabetic foot ulcer noted on the plantar aspect at the base of the second third and fourth toes. The third toe does appear to be ecchymotic as well as the dorsum of the foot. There is good capillary refill in the other toes. There is a strong odor of infection noted. NEUROLOGIC: Patient is awake alert and oriented x3. MEDICAL DECISION MAKING: The patient is a 60-year-old male who presented to the emergency department for an evaluation of diabetic foot ulcer. The patient had a fever and very significant swelling in the foot. He was treated with IV antibiotics which were switched recently because of a culture report. The patient had a follow-up ever ointment today but was sent to the emergency department because of worsening symptoms and fear of severity of foot infection. The patient was treated with IV pain medication as well as IV antibiotics in the emergency department. He was reevaluated multiple times. I discussed the patient's laboratory and radiographic studies with him. He was found to have signs of osteomyelitis on CT. I discussed his case with the on-call [facility] hospitalist. They have agreed to evaluate the patient in the emergency department for further management and disposition. Triage Nursing notes reviewed. Prior medical records reviewed Vital Signs: reviewed and remarkable for elevated blood pressure and fever. Differential diagnosis: Cellulitis, abscess, MRSA infection, DVT, necrotizing fasciitis, dermatitis, drug eruption, allergic reaction, as well as other pathologies. ER treatment provided: See below Diagnostics interpreted by me: ECG: none Cardiac Monitoring: An order was placed for continuous cardiac monitoring. The monitor shows a rate of 95 bpm with sinus rhythm. Laboratory studies: As stated above and show below. Imaging studies: See below Consultation(s): I discussed this case with Dr. [facility] He is agreed to evaluate the patient in the emergency department for further management and disposition. Past Med/Surg History Medical History (Updated 04/26/21 @ 00:05 by Michoacano Madrid DO) Acute hyponatremia MAGDIEL (acute kidney injury) Chronic obstructive pulmonary disease Diabetes mellitus, type 2 Diabetic ulcer of right foot Foot fracture, right GERD (gastroesophageal reflux disease) Gout Hyperlipidemia Hypertension Hypoglycemia Hypoglycemia Osteoarthritis Osteomyelitis of right foot Pain and swelling of right lower leg Peripheral neuropathy Rigors Scoliosis Tobacco abuse Wound of foot Surgical History History of carpal tunnel release RT History of cataract surgery LEFT History of colonoscopy History of esophagogastroduodenoscopy (EGD) History of hand surgery RT TENDON RELEASE History of repair of rotator cuff RT X 2 History of tooth extraction Family History Mother Family history of diabetes mellitus Social History Smoking Status: Current some day smoker Tobacco Type: Cigarettes Age Started Using Tobacco: 16; packs per day: 1; Cigarettes Per Day: 20-40; Second Hand Exposure: No; Hx Alcohol Use: Yes Alcohol type: beer, wine and hard liquor Alcohol Intake Frequency: Monthly or Less Hx Substance Use: No Preferred Language: Setswana Communication Ability: Effective Test Architect Required: No Beliefs That Will Affect Care: None marital status: Current Living Situation: Spouse current occupational status: employed 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 Feels Safe at Home: Yes Diet Comment: States trying to reduce carb intake caffeine: No during the past year weight has: remained stable Do you think of yourself as: straight/heterosexual Gender Identity: Male Assistive Devices: Glasses Allergies Allergies Allergy/AdvReac Type Severity Reaction Status Date / Time Penicillins Allergy Severe CHILD Verified 04/22/21 10:58 sulfamethoxazole Allergy Intermediate RASH Verified 04/22/21 10:58 trimethoprim Allergy Intermediate RASH Verified 04/22/21 10:58 Home Meds Home Medications Medication Instructions Recorded Confirmed aspirin 81 mg chewable tablet 81 mg PO QAM 07/15/18 04/25/21 cilostazol 100 mg tablet 100 mg PO DAILY 07/15/18 04/25/21 gabapentin 800 mg tablet 800 mg PO TID 07/15/18 04/25/21 metformin 1,000 mg tablet 1,000 mg PO BID 07/15/18 04/25/21 pioglitazone 45 mg tablet (Actos) 45 mg PO QAM 07/15/18 04/25/21 rosuvastatin 20 mg tablet (Crestor) 20 mg PO HS 07/15/18 04/25/21 clindamycin HCl 150 mg capsule 450 mg PO Q8 04/14/21 04/25/21 lisinopril 5 mg tablet 5 mg PO .QHS tab 04/22/21 04/25/21 metoprolol succinate 50 mg 50 mg PO QPM 04/22/21 04/25/21 tablet,extended release 24 hr Previous Rx's Medication Instructions Recorded blood sugar [facility]15/21 Verio test strips) blood-glucose meter ([facility] 04/15/21 Verio Meter) glucagon 1 mg solution for 1 mg IM ONCE #1 ea 04/15/21 injection (Glucagon Emergency Kit) lancets 30 gauge ([facility] ea 04/15/21 Lancets) collagenase clostridium histo. 250 1 applic TOPICAL DAILY 14 Days #30 04/22/21 unit/gram topical ointment (Santyl) g gentamicin 0.1 % topical ointment 1 applic TOPICAL DAILY 14 Days #30 04/25/21 g Results & Data (ED) Vital Signs Vital Signs - 24 hr 04/25/21 15:02 04/25/21 17:24 04/25/21 18:00 Temperature 38.4 C H Temperature Source Temporal Artery Scan Pulse Rate 103 H 98 H 105 H Pulse Rate [Bilateral Apical] Respiratory Rate 16 27 H 19 Respiratory Effort / Characteristics Non-Labored Respiratory Depth Normal Blood Pressure 116/58 L 141/72 H 124/72 Blood Pressure [Left Arm] Blood Pressure Mean 77 95 89 Blood Pressure Mean [Left Arm] Pulse Oximetry 96 Oxygen Delivery Method Room Air Sepsis Recent Fever Within 48 Hours No Sepsis New/Unexplained Change in Mental Status No Sepsis Action Taken by Nursing No Action Required 04/25/21 18:30 04/25/21 19:00 04/25/21 19:17 Temperature Temperature Source Pulse Rate 102 H 97 H Pulse Rate [Bilateral Apical] 98 H Respiratory Rate 23 20 20 Respiratory Effort / Characteristics Respiratory Depth Blood Pressure 133/78 157/73 H Blood Pressure [Left Arm] 151/75 H Blood Pressure Mean 96 101 Blood Pressure Mean [Left Arm] 100 Pulse Oximetry 96 Oxygen Delivery Method Sepsis Recent Fever Within 48 Hours Sepsis New/Unexplained Change in Mental Status Sepsis Action Taken by Nursing 04/25/21 20:50 Temperature Temperature Source Pulse Rate Pulse Rate [Bilateral Apical] 100 H Respiratory Rate 20 Respiratory Effort / Characteristics Respiratory Depth Blood Pressure Blood Pressure [Left Arm] 137/81 Blood Pressure Mean Blood Pressure Mean [Left Arm] 99 Pulse Oximetry 99 Oxygen Delivery Method Sepsis Recent Fever Within 48 Hours Sepsis New/Unexplained Change in Mental Status Sepsis Action Taken by Skilled Nursing Medications Current Medication List: was personally reviewed by me Laboratory Data Attestation: I reviewed the patient's lab results. Result diagrams: 04/25/21 Unknown 04/25/21 Unknown Lab Results 04/25/21 04/25/21 04/25/21 Range/Units 16:55 16:55 20:32 Urine Color Yellow Urine Appearance Clear (Clear) Urine pH 5.0 (4.5-7.5) Ur Specific Mcdonough 1.018 (1.000-1.030) Urine Protein 2+ H (Negative) Urine Glucose (UA) Negative (Negative) Urine Ketones Trace H (Negative) Urine Blood Negative (Negative) Urine Nitrite Negative (Negative) Urine Bilirubin Negative (Negative) Urine Urobilinogen Negative (Negative) Ur Leukocyte Esterase Negative (Negative) Urine WBC (Auto) 1-5 (0-5) /hpf Urine RBC (Auto) 0-4 (0-4) /hpf U Hyaline Cast (Auto) 5-10 H (0-5) /lpf U Epithel Cells (Auto) 10-20 H (0-5) /lpf Urine Bacteria (Auto) Negative (Negative) COVID-19 Eval Order Covid19 at [facility] SARS-CoV-2 (PCR) NEGATIVE (Negative) Administered Medications Gabapentin (Gabapentin 800 Mg Tab) 800 mg PO TID GAMALIEL Stop: 05/25/21 22:40 Last Admin: 04/25/21 23:04 Dose: 800 mg Documented by: [id number] Sodium Chloride (Nss 1000ml) 1,000 mls @ 125 mls/hr IV .Q8H STA Stop: 04/26/21 00:26 Last Infusion: 04/25/21 21:56 Dose: 0 mls/hr Documented by: [id number] Admin: 04/25/21 17:26 Dose: 125 mls/hr Documented by: [id number] Ceftriaxone Sodium 2,000 mg/ (Dextrose) 70 mls @ 100 mls/hr IV Q24H GAMALIEL; Protocol Stop: 06/06/21 22:59 Last Infusion: 04/25/21 23:46 Dose: 0 mls/hr Documented by: [id number] Admin: 04/25/21 23:04 Dose: 100 mls/hr Documented by: [id number] Insulin Aspart (Insulin Aspart 100 Units/Ml 3 Ml Pen) 0 units SC ACHS GAMALIEL Stop: 05/25/21 22:40 Last Admin: 04/25/21 23:07 Dose: 1 units Documented by: [id number] Cosigned by: [id number] Lisinopril (Lisinopril 5 Mg Tab) 5 mg PO HS GAMALIEL Stop: 05/25/21 22:40 Last Admin: 04/25/21 23:04 Dose: 5 mg Documented by: [id number] Metoprolol Succinate (Metoprolol Succ 50mg Ext Rel Tab) 50 mg PO QPM GAMALIEL Stop: 05/25/21 22:40 Last Admin: 04/25/21 23:04 Dose: 50 mg Documented by: [id number] Morphine Sulfate (Morphine Sulfate 2 Mg/Ml Carp) 2 mg IV Q2H PRN PRN Reason: Pain Stop: 05/09/21 23:21 Last Admin: 04/25/21 23:40 Dose: 2 mg Documented by: [id number] Rosuvastatin Calcium (Rosuvastatin Calcium 20 Mg Tab) 20 mg PO HS [facility] Stop: 05/25/21 22:40 Last Admin: 04/25/21 23:04 Dose: 20 mg Documented by: [id number] Discontinued Medications Cefepime HCl (Cefepime 2,000 Mg/20 Ml Vial) Confirm Administered Dose 2,000 mg .ROUTE .STK-MED ONE Stop: 04/25/21 17:42 Last Admin: 04/25/21 17:50 Dose: 2,000 mg Documented by: [id number] Diphenhydramine HCl (Diphenhydramine 50 Mg/Ml Vial) 25 mg IV NOW STA Stop: 04/25/21 23:23 Last Admin: 04/25/21 23:41 Dose: 25 mg Documented by: [id number] Cefepime HCl 2,000 mg/ Syringe 20 mls @ 5 mls/min IV NOW STA; Protocol Stop: 04/25/21 16:33 Last Admin: 04/25/21 17:51 Dose: Not Given Documented by: [id number] Morphine Sulfate (Morphine Sulfate 4 Mg/Ml 1 Ml Carp\Vial) 4 mg IV Q30M PRN PRN Reason: Pain Stop: 05/09/21 16:35 Last Admin: 04/25/21 21:35 Dose: 4 mg Documented by: [id number] Admin: 04/25/21 17:27 Dose: 4 mg Documented by: [id number] Ondansetron HCl (Ondansetron Inj 2 Mg/Ml 2 Ml Vial) 4 mg IV NOW STA Stop: 04/25/21 16:37 Last Admin: 04/25/21 17:27 Dose: 4 mg Documented by: [id number] Imaging Data Radiologist's Impression: Foot X-Ray 04/25/21 16:27 XR foot RT min 3V routine HISTORY: 60 years-old Male swelling acute pain and swelling of the right foot COMPARISON: 04/14/2021 TECHNIQUE: 3 views of the right foot FINDINGS: Subacute to chronic appearing transverse fracture involving the base of the fifth metatarsal is redemonstrated. Fracture distraction measures up to 3 mm, previously 2 mm. Mild to moderate first MTP joint osteoarthritis. There is mild multifocal osteoarthritis without acute fracture, dislocation or osseous e rosion. Mild tibiotalar osteoarthritis. Large enthesophyte of the calcaneus at the Achilles insertion site. Arterial calcifications. Mild diffuse soft tissue swelling. IMPRESSION: Slightly worsened distraction of the subacute to chronic fracture involving the base of the fifth metatarsal. ACT 112: Negative or not required by law. The above report was generated using voice recognition software. It may contain grammatical, syntax or spelling errors. Electronically signed by: Garrett Kay M.D. 04/25/2021 4:[address] 04/25/21 17:17 CT foot RT wo con HISTORY: 60 years-old Male swelling acute pain and swelling of the right foot. Reported diabetic foot ulcer COMPARISON: Right foot radiographs of same day, MRI right foot 03/09/2021 TECHNIQUE: Multiple axial CT images of the right foot were obtained without the use of IV contrast. A dose lowering technique was used consistent with the principals of TRACIE. FINDINGS: There is mild subcutaneous edema of the foot, most pronounced dorsally. Mild circumferential subcutaneous edema of the ankle. No drainable fluid collection. There is a cutaneous 3.0 x 3.6 cm ulceration of the plantar foot centered at the level of the third and fourth metatarsal phalangeal joints. Mild associated subcutaneous emphysema. Bipartite medial hallux sesamoid. Mild multifocal osteoarthritis. Subacute to chronic appearing fracture involves the base of the fifth metatarsal with fracture distraction measuring up to 2-3 mm. There is no significant interval osseous bridging of the fracture. Spurring of the calcaneus. There is a questionable tiny osseous erosion involving the plantar aspect of the third metatarsal head (image 21 of series 300 and image 48 of series 301). IMPRESSION: 1. 3.0 x 3.6 cm cutaneous ulceration of the plantar foot centered at the level of the third and fourth metatarsophalangeal joints. 2. Equivocal osseous erosion involves the plantar aspect of the third metatarsal head. Findings should be correlated clinically to exclude developing osteomyelitis. 3. Subcutaneous edema suggestive of cellulitis. No abscess. 4. Subacute to chronic appearing ununited fracture redemonstrated involving the base of the fifth metatarsal. ACT 112: Negative or not required by law. The above report was generated using voice recognition software. It may contain grammatical, syntax or spelling errors. Electronically signed by: Garrett Kay M.D. 04/25/2021 6:09 PM Discharge Plan Visit Data Chief Complaint: Foot Injury/Pain Stated Complaint: REF BY DOCTOR - BROKEN FOOT ED Provider: Michoacano Madrid Discharge Problem: Acute osteomyelitis of right foot, Diabetic foot ulcer Patient Disposition: Admitted As Inpatient Condition: Good Discharge Instructions Interventions: ED Discharge Assessment Last Done: 04/25/21 22:39 Discharge Problem: Diabetic foot ulcer Qualifiers: Diabetic foot ulcer location: midfoot Diabetes mellitus type: other specified (including JONNATHAN) Laterality: right Non-pressure ulcer stage: unspecified non- pressure ulcer stage Qualified Code(s): E13.621 - Other specified diabetes mellitus with foot ulcer
[2021-04-25] MEDS ORDERED: SODIUM CHLORIDE 0.9% 1000ML 1,000 ML IV STA (16:27)
[2021-04-25] MEDS ORDERED: CEFEPIME 2,000 MG in SYRINGE 0 ML IV STA (16:30)
[2021-04-25] MEDS ORDERED: ONDANSETRON INJ 2 MG/ML 2 ML VIAL IV STA (16:36)
[2021-04-25 16:52] LABS: Basophils # (auto) 0.02 K/uL (0-0.2); Basophils % (auto) 0.2 %; Eosinophils # (auto) 0.02 K/uL (0-0.5); Eosinophils % (auto) 0.2 %; Hematocrit (blood only) 33.2 % (42-52); Hemoglobin 11.3 g/dL (14.0-18.0); Immature Granulocytes # (auto) 0.03 K/uL (0.00-0.02); Immature Granulocytes % (auto) 0.3 %; Lymphocytes # (auto) 1.18 K/uL (1.2-3.4); Lymphocytes % (auto) 10.3 %; Mean Corpuscular Hemoglobin 31.9 pg (25-34); Mean Corpuscular Volume 93.8 fL (80-100); Mean Platelet Volume 9.4 fL (7.4-10.4); Monocytes # (auto) 0.76 K/uL (0.11-0.59); Monocytes % (auto) 6.6 %; Neutrophils # (auto) 9.48 K/uL (1.4-6.5); Neutrophils % (auto) 82.4 %; Platelet Count 323 K/uL (130-400); RDW Coefficient of Variation 12.7 % (11.5-14.5); RDW Standard Deviation 44.2 fL (36.4-46.3); Red Blood Count 3.54 M/uL (4.7-6.1); White Blood Count 11.49 K/uL (4.8-10.8)
--- NOTE | 2021-04-25 16:59 | XRay Report ---
XR foot RT min 3V routine HISTORY: 60 years-old Male swelling acute pain and swelling of the right foot COMPARISON: 04/14/2021 TECHNIQUE: 3 views of the right foot FINDINGS: Subacute to chronic appearing transverse fracture involving the base of the fifth metatarsal is redem onstrated. Fracture distraction measures up to 3 mm, previously 2 mm. Mild to moderate first MTP join t osteoarthritis. There is mild multifocal osteoarthritis without acute fracture, dislocation or osse ous erosion. Mild tibiotalar osteoarthritis. Large enthesophyte of the calcaneus at the Achilles inse rtion site. Arterial calcifications. Mild diffuse soft tissue swelling. IMPRESSION: Slightly worsened distraction of the subacute to chronic fracture involving the base of t he fifth metatarsal. ACT 112: Negative or not required by law. The above report was generated using voice recognition software. It may contain grammatical, syntax o r spelling errors. Electronically signed by: Garrett Kay M.D. 04/25/2021 4:58 PM
[2021-04-25 17:14] LABS: Albumin Level 3.2 gm/dl (3.4-5.0); Calcium 8.7 mg/dl (8.5-10.1); Creatinine Clr Calc Pharmacy 47.6 ml/min; Est GFR (African American) 42.6 ml/min; Est GFR (Non-African American) 36.8 ml/min; Potassium 4.1 mmol/L (3.5-5.1)
[2021-04-25 17:17] LABS: Albumin Globulin Ratio 0.7 (0.9-2); Bilirubin,Total 0.5 mg/dl (0.2-1); C Reactive Protein 13.8 mg/dl (0-0.29); Globulin 4.8 gm/dl (2.5-4.0)
[2021-04-25] MEDS: MoRPHine SULFATE 4 MG/ML 1 ML CARP\\VIAL IV PRN ×2 (17:27→21:35)
[2021-04-25] MEDS ORDERED: CEFEPIME 2,000 MG/20 ML VIAL ONE (17:41)
--- NOTE | 2021-04-25 18:11 | CT Scan Report ---
CT foot RT wo con HISTORY: 60 years-old Male swelling acute pain and swelling of the right foot. Reported diabetic wagner t ulcer COMPARISON: Right foot radiographs of same day, MRI right foot 03/09/2021 TECHNIQUE: Multiple axial CT images of the right foot were obtained without the use of IV contrast. A dose lowering technique was used consistent with the principals of TRACIE. FINDINGS: There is mild subcutaneous edema of the foot, most pronounced dorsally. Mild circumferential subcutan eous edema of the ankle. No drainable fluid collection. There is a cutaneous 3.0 x 3.6 cm ulceration of the plantar foot centered at the level of the third and fourth metatarsal phalangeal joints. Mild associated subcutaneous emphysema. Bipartite medial hallux sesamoid. Mild multifocal osteoarthritis. Subacute to chronic appearing fracture involves the base of the fifth metatarsal with fracture distra ction measuring up to 2-3 mm. There is no significant interval osseous bridging of the fracture. Spur ring of the calcaneus. There is a questionable tiny osseous erosion involving the plantar aspect of t he third metatarsal head (image 21 of series 300 and image 48 of series 301). IMPRESSION: 1. 3.0 x 3.6 cm cutaneous ulceration of the plantar foot centered at the level of the third and fourt h metatarsophalangeal joints. 2. Equivocal osseous erosion involves the plantar aspect of the third metatarsal head. Findings shoul d be correlated clinically to exclude developing osteomyelitis. 3. Subcutaneous edema suggestive of cellulitis. No abscess. 4. Subacute to chronic appearing ununited fracture redemonstrated involving the base of the fifth met atarsal. ACT 112: Negative or not required by law. The above report was generated using voice recognition software. It may contain grammatical, syntax o r spelling errors. Electronically signed by: Garrett Kay M.D. 04/25/2021 6:09 PM
--- NOTE | 2021-04-25 21:24 | History & Physical Report ---
Date of Service April 25, 2021 Assessment & Plan (1) Osteomyelitis of right foot: Plan: Thad Mora is a 60 yo male with a PMHx of CKD, COPD, DM2, GERD, gout, HLD, HTN, and peripheral neuropathy admitted to the hospital 04/25/21 for worsening right foot pain and swelling with concerns of osteomyelitis and arterial insufficiency. Osteomyelitis/ Wound of Right Foot - Transition to ceftriaxone 1g q24h for once daily dosing. Patient does have a penicillin allergy hx but noted to receive cefazolin in 2017 without adverse reaction - Consult wound care nurse Pain and swelling of right lower leg - JONELLE duplex US ordered - Venous doppler of RLE ordered - Tylenol 650mg po q4h prn for pain - Continue home cilostazol, ASA, and gabapentin Diabetes Mellitus, Type 2 - Home oral agents metformin and pioglitazone held on admission - ISS ordered - May need to consider basal insulin Hyperlipidemia - Continue home rosuvastatin Hypertension - Continue home lisinopril and metoprolol (2) Pain and swelling of right lower leg: (3) Wound of foot: (4) Hyperlipidemia: (5) Diabetes mellitus, type 2: History of Present Illness Primary Care Provider: Michoacano Shabazz DO Thad Mora is a 60 yo male with a PMHx of CKD, COPD, DM2, GERD, gout, HLD, HTN, and peripheral neuropathy who presented to the hospital for worsening right foot pain and swelling. He reports initial development of a blister which changed to an ulcer on the plantar aspect of the right foot in January (2 months ago) after being treated for a 5th metatarsal fx with a CAM boot. Then treated for cellulitis of the right foot with Clindamycin. Patient admitted on 04/14/21- 04/15/21 for hypoglycemia and a diabetic ulcer of the right foot; he received meropenem and daptomycin while admitted and went back to baseline IV Clindamycin on discharge. He has been continuing IV Clindamycin q8h at home; was also started on po cipro yesterday. Patient went to a podiatry appointment today for follow up but was sent to the ER for worsening pain and swelling of the right foot. He is unable to report the duration of the increased pain and swelling of the foot but states that "it has been since initial injury [in January]." States that he is now unable to move his 3rd toe on the right foot due to swelling. Also reports change in color (darker color) to the toe. Patient states that it is difficult to ambulate secondary to the pain. Pain is described as a constant throbbing with intermittent "hammer smashing" sensation into the foot. He reports associated chills but denies known fevers (patient was febrile in triage). Denies nausea, vomiting, CP, or SOB. While in the ED, a foot CT performed revealed 3.0 x 3.6 cm cutaneous ulceration of the plantar foot centered at the level of the third and fourth metatarsophalangeal joints as well as equivocal osseous erosion involves the plantar aspect of the third metatarsal head, concerning for osteomyelitis. Patient's WBC elevated at 11.49, ESR elevated at 63, MAGDIEL on CKD with Cr of 1.93. Allergies Allergy/AdvReac Type Severity Reaction Status Date / Time Penicillins Allergy Severe CHILD Verified 04/22/21 10:58 sulfamethoxazole Allergy Intermediate RASH Verified 04/22/21 10:58 trimethoprim Allergy Intermediate RASH Verified 04/22/21 10:58 Home Medications Medication Instructions Recorded Confirmed Type aspirin 81 mg chewable tablet 81 mg PO QAM 07/15/18 04/25/21 History cilostazol 100 mg tablet 100 mg PO DAILY 07/15/18 04/25/21 History gabapentin 800 mg tablet 800 mg PO TID 07/15/18 04/25/21 History metformin 1,000 mg tablet 1,000 mg PO BID 07/15/18 04/25/21 History pioglitazone 45 mg tablet (Actos) 45 mg PO QAM 07/15/18 04/25/21 History rosuvastatin 20 mg tablet (Crestor) 20 mg PO HS 07/15/18 04/25/21 History clindamycin HCl 150 mg capsule 450 mg PO Q8 04/14/21 04/25/21 History blood sugar diagnostic (OneTouch #50 ea 04/15/21 04/25/21 Rx Verio test strips) blood-glucose meter (OneTouch #1 ea 04/15/21 04/25/21 Rx Verio Meter) glucagon 1 mg solution for 1 mg IM ONCE #1 ea 04/15/21 04/25/21 Rx injection (Glucagon Emergency Kit) lancets 30 gauge (OneTouch Vinayak #100 ea 04/15/21 04/25/21 Rx Lancets) collagenase clostridium histo. 250 1 applic TOPICAL DAILY 14 Days #30 04/22/21 04/25/21 Rx unit/gram topical ointment (Santyl) g lisinopril 5 mg tablet 5 mg PO .QHS tab 04/22/21 04/25/21 History metoprolol succinate 50 mg 50 mg PO QPM 04/22/21 04/25/21 History tablet,extended release 24 hr gentamicin 0.1 % topical ointment 1 applic TOPICAL DAILY 14 Days #30 04/25/21 04/25/21 Rx g Past Med/Surg History Medical History Acute hyponatremia MAGDIEL (acute kidney injury) Chronic obstructive pulmonary disease Diabetes mellitus, type 2 Diabetic ulcer of right foot Foot fracture, right GERD (gastroesophageal reflux disease) Gout Hyperlipidemia Hypertension Hypoglycemia Hypoglycemia Osteoarthritis Osteomyelitis of right foot Pain and swelling of right lower leg Peripheral neuropathy Rigors Scoliosis Tobacco abuse Wound of foot Surgical History History of carpal tunnel release RT History of cataract surgery LEFT History of colonoscopy History of esophagogastroduodenoscopy (EGD) History of hand surgery RT TENDON RELEASE History of repair of rotator cuff RT X 2 History of tooth extraction Family History Mother Family history of diabetes mellitus Social History Smoking Status: Current every day smoker Tobacco Type: Cigarettes Age Started Using Tobacco: 16; packs per day: 1; Cigarettes Per Day: 20-40; Second Hand Exposure: No; Hx Alcohol Use: No Hx Substance Use: No Preferred Language: Greek Communication Ability: Effective Social Media Community Manager Required: No Beliefs That Will Affect Care: None marital status: Current Living Situation: Family current occupational status: employed 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 Well developed and well nourished. Vital signs reviewed as above. A/O x3. EYES: PERRLA. EOMI. Anicteric sclerae. HENT: Moist mucous membranes. No pharyngeal erythema or exudates. RESPIRATORY: Clear to auscultation bilaterally. No wheezing, rales, or rhonchi. CARDIOVASCULAR: Regular rate and rhythm. + murmur. ABDOMEN: Soft, non-tender and non-distended. Normal bowel sounds. EXTREMITIES: RLE with 1-2+ edema to mid-correa. Moderate tenderness to palpation throughout right calf and foot. Full active range of motion of ankle and all toes. No edema or TTP throughout LLE. SKIN: Warm, dry. Ulceration to plantar aspect of right foot with multiple stages of healing; there is purulent discharge that can be expressed from the central aspect of the lesion. No surrounding TTP. NEUROLOGIC: No focal neurological deficits. CN II-XII grossly intact. PSYCHIATRIC: Cooperative. Appropriate mood and affect. Results & Data Results & Data ([facility]) Vital Signs (Past 12 Hours) Vital Signs Temp Pulse Pulse Resp BP BP Pulse Ox 04/25/21 20:50 100 H 20 137/81 99 04/25/21 19:17 98 H 20 151/75 H 96 04/25/21 19:00 97 H 20 157/73 H 04/25/21 18:30 102 H 23 133/78 04/25/21 18:00 105 H 19 124/72 04/25/21 17:24 98 H 27 H 141/72 H 04/25/21 15:02 38.4 C H 103 H 16 116/58 L 96 Laboratory Results 04/25/21 04/25/21 04/25/21 Range/Units Unknown Unknown Unknown WBC (4.8-10.8) K/uL RBC (4.7-6.1) M/uL Hgb (14.0-18.0) g/dL Hct (42-52) % MCV (80-100) fL MCH (25-34) pg MCHC (32-36) g/dL RDW Std Deviation (36.4-46.3) fL RDW Coeff of Dandy (11.5-14.5) % Plt Count (130-400) K/uL MPV (7.4-10.4) fL Immature Gran % (Auto) % Neut % (Auto) % Lymph % (Auto) % [place] % (Auto) % Eos % (Auto) % Baso % (Auto) % Neut # (Auto) (1.4-6.5) K/uL Lymph # (Auto) (1.2-3.4) K/uL [place] # (Auto) (0.11-0.59) K/uL Eos # (Auto) (0-0.5) K/uL Baso # (Auto) (0-0.2) K/uL Immature Gran # (Auto) (0.00-0.02) K/uL ESR 63 H (0-20) mm/hr Sodium 134 L (136-145) mmol/L Potassium 4.1 (3.5-5.1) mmol/L Chloride 103 (98-107) mmol/L Carbon Dioxide 25 (21-32) mmol/L Anion Gap 6.0 (3-11) BUN 25 H (7-18) mg/dl Creatinine 1.93 H (0.6-1.4) mg/dl Est Cr Clr Drug Dosing 47.6 ml/min Est GFR ( Amer) 42.6 ml/min Est GFR (Non-Af Amer) 36.8 ml/min BUN/Creatinine Ratio 13.0 (10-20) Glucose 144 H (70-99) mg/dl Calcium 8.7 (8.5-10.1) mg/dl Total Bilirubin 0.5 (0.2-1) mg/dl AST 15 (15-37) U/L ALT 24 (12-78) U/L Alkaline Phosphatase 60 (45-117) U/L C-Reactive Protein 13.80 H (0-0.29) mg/dl Total Protein 8.0 (6.4-8.2) gm/dl Albumin 3.2 L (3.4-5.0) gm/dl Globulin 4.8 H (2.5-4.0) gm/dl Albumin/Globulin Ratio 0.7 L (0.9-2) Procalcitonin 0.88 H (0-0.5) ng/ml COVID-19 Eval Order SARS-CoV-2 (PCR) (Negative) 04/25/21 04/25/21 04/25/21 Range/Units Unknown 16:55 16:55 WBC 11.49 H (4.8-10.8) K/uL RBC 3.54 L (4.7-6.1) M/uL Hgb 11.3 L (14.0-18.0) g/dL Hct 33.2 L (42-52) % MCV 93.8 (80-100) fL MCH 31.9 (25-34) pg MCHC 34.0 (32-36) g/dL RDW Std Deviation 44.2 (36.4-46.3) fL RDW Coeff of Dandy 12.7 (11.5-14.5) % Plt Count 323 (130-400) K/uL MPV 9.4 (7.4-10.4) fL Immature Gran % (Auto) 0.3 % Neut % (Auto) 82.4 % Lymph % (Auto) 10.3 % [place] % (Auto) 6.6 % Eos % (Auto) 0.2 % Baso % (Auto) 0.2 % Neut # (Auto) 9.48 H (1.4-6.5) K/uL Lymph # (Auto) 1.18 L (1.2-3.4) K/uL [place] # (Auto) 0.76 H (0.11-0.59) K/uL Eos # (Auto) 0.02 (0-0.5) K/uL Baso # (Auto) 0.02 (0-0.2) K/uL Immature Gran # (Auto) 0.03 H (0.00-0.02) K/uL ESR (0-20) mm/hr Sodium (136-145) mmol/L Potassium (3.5-5.1) mmol/L Chloride (98-107) mmol/L Carbon Dioxide (21-32) mmol/L Anion Gap (3-11) BUN (7-18) mg/dl Creatinine (0.6-1.4) mg/dl Est Cr Clr Drug Dosing ml/min Est GFR ( Amer) ml/min Est GFR (Non-Af Amer) ml/min BUN/Creatinine Ratio (10-20) Glucose (70-99) mg/dl Calcium (8.5-10.1) mg/dl Total Bilirubin (0.2-1) mg/dl AST (15-37) U/L ALT (12-78) U/L Alkaline Phosphatase (45-117) U/L C-Reactive Protein (0-0.29) mg/dl Total Protein (6.4-8.2) gm/dl Albumin (3.4-5.0) gm/dl Globulin (2.5-4.0) gm/dl Albumin/Globulin Ratio (0.9-2) Procalcitonin (0-0.5) ng/ml COVID-19 Eval Order Covid19 at [facility] SARS-CoV-2 (PCR) NEGATIVE (Negative) Diagnostic Findings CT foot RT wo con HISTORY: 60 years-old Male swelling acute pain and swelling of the right foot. Reported diabetic foot ulcer COMPARISON: Right foot radiographs of same day, MRI right foot 03/09/2021 TECHNIQUE: Multiple axial CT images of the right foot were obtained without the use of IV contrast. A dose lowering technique was used consistent with the principals of TRACIE. FINDINGS: There is mild subcutaneous edema of the foot, most pronounced dorsally. Mild circumferential subcutaneous edema of the ankle. No drainable fluid collection. There is a cutaneous 3.0 x 3.6 cm ulceration of the plantar foot centered at the level of the third and fourth metatarsal phalangeal joints. Mild associated subcutaneous emphysema. Bipartite medial hallux sesamoid. Mild multifocal osteoarthritis. Subacute to chronic appearing fracture involves the base of the fifth metatarsal with fracture distraction measuring up to 2-3 mm. There is no significant interval osseous bridging of the fracture. Spurring of the calcaneus. There is a questionable tiny osseous erosion involving the plantar aspect of the third metatarsal head (image 21 of series 300 and image 48 of series 301). IMPRESSION: 1. 3.0 x 3.6 cm cutaneous ulceration of the plantar foot centered at the level of the third and fourth metatarsophalangeal joints. 2. Equivocal osseous erosion involves the plantar aspect of the third metatarsal head. Findings should be correlated clinically to exclude developing osteomyelitis. 3. Subcutaneous edema suggestive of cellulitis. No abscess. 4. Subacute to chronic appearing ununited fracture redemonstrated involving the base of the fifth metatarsal. XR foot RT min 3V routine HISTORY: 60 years-old Male swelling acute pain and swelling of the right foot COMPARISON: 04/14/2021 TECHNIQUE: 3 views of the right foot FINDINGS: Subacute to chronic appearing transverse fracture involving the base of the fifth metatarsal is redemonstrated. Fracture distraction measures up to 3 mm, previously 2 mm. Mild to moderate first MTP joint osteoarthritis. There is mild multifocal osteoarthritis without acute fracture, dislocation or osseous erosion. Mild tibiotalar osteoarthritis. Large enthesophyte of the calcaneus at the Achilles insertion site. Arterial calcifications. Mild diffuse soft tissue swelling. IMPRESSION: Slightly worsened distraction of the subacute to chronic fracture i nvolving the base of the fifth metatarsal. Supervising Physician Co-Signing Physician Notes Attending addendum: I have physically seen this patient, have supervised the medical residents activities, and agree with the H&P unless as otherwise noted. Assessment and Plan: Right foot osteomyelitis/diabetic foot infection/PAD- Ceftriaxone 2 g IV daily Check arterial Dopplers Continue cilostazol, aspirin and gabapentin Diabetes mellitus type 2- Hold Metformin and pioglitazone Placed on Accu-Cheks before meals and at bedtime with NovoLog coverage per scale Hyperlipidemia- Continue rosuvastatin Meter orders and notations as noted Resident Activity Tracking Resident Involvement: Resident Care Provided Care Provided: Adult Hospital Medicine
[2021-04-25 21:46] LABS: Appearance Urine Clear (Clear); Bacteria Urine Automated Negative (Negative); Bilirubin Urine Negative (Negative); Blood Urine Negative (Negative); Color Urine Yellow; Glucose Urine UA Negative (Negative); Ketones Urine Trace (Negative); Leukocyte Esterase Urine Negative (Negative); Nitrite Urine Negative (Negative); Protein Urine 2+ (Negative); RBC Urine Automated 0-4 /hpf (0-4); Specific Gravity Urine 1.018 (1.000-1.030); Urobilinogen Urine Negative (Negative)
[2021-04-25] MEDS ORDERED: ALUMINUM/MAGNESIUM SUSP 30 ML UDC PO PRN (22:41)
[2021-04-25] MEDS ORDERED: CARBOHYDRATES FOR HYPOGLYCEMIA PO PRN (22:41)
[2021-04-25] MEDS ORDERED: GLUCOSE 40% GEL 15 GM TUBE PO PRN (22:41)
[2021-04-25] MEDS ORDERED: DEXTROSE 50% 50 ML SYRINGE IV PRN (22:41)
[2021-04-25] MEDS ORDERED: ACETAMINOPHEN 325 MG TAB PO PRN (22:41)
[2021-04-25] MEDS ORDERED: POLYETHYLENE (MIRALAX) 17 GM PACK PO PRN (22:41)
[2021-04-25] MEDS ORDERED: MAGNESIUM HYDROXIDE SUSP 30 ML UDC PO PRN (22:41)
[2021-04-25] MEDS ORDERED: GLUCOSE 10 TABS/TUBE PO PRN (22:41)
[2021-04-25] MEDS ORDERED: GLUCAGON FOR INJ 1 MG VIAL SQ PRN (22:41)
[2021-04-25] MEDS: lisinopril 5 MG TAB PO SCH (23:04)
[2021-04-25] MEDS: GABAPENTIN 800 MG TAB PO SCH (23:04)
[2021-04-25] MEDS: ROSUVASTATIN CALCIUM 20 MG TAB PO SCH (23:04)
[2021-04-25] MEDS: cefTRIAXone SODIUM 2,000 MG in DEXTROSE 5% 50 ML IV SCH (23:04)
[2021-04-25] MEDS: METOPROLOL SUCC 50MG EXT REL TAB PO SCH (23:04)
[2021-04-25] MEDS: INSULIN ASPART 100 UNITS/ML 3 ML PEN SC SCH (23:07)
[2021-04-25] MEDS ORDERED: diphenhydrAMINE 50 MG/ML VIAL IV STA (23:22)
[2021-04-25] MEDS: MoRPHine SULFATE 2 MG/ML CARP IV PRN (23:40)
[2021-04-26] MEDS: MoRPHine SULFATE 2 MG/ML CARP IV PRN ×2 (06:01→12:34)
--- NOTE | 2021-04-26 07:48 | Ultrasound Report ---
US venous doppler LE RT CLINICAL HISTORY: RLE/right foot pain and swelling to mid calf COMPARISON STUDY: No previous studies for comparison. FINDINGS: Real-time and color flow Doppler imaging were performed. Flow was seen within the femoral, popliteal and calf veins with no intraluminal thrombus demonstrated. The saphenous vein is patent. IMPRESSION: No evidence of deep venous thrombosis. ACT 112: Negative or not required by law. The above report was generated using voice recognition software. It may contain grammatical, syntax o r spelling errors. Electronically signed by: Yue Iglesias DO 04/26/2021 7:46 AM
--- NOTE | 2021-04-26 08:15 | Ultrasound Report ---
US ankle/brachial index comp HISTORY: Acute pain with soft tissue swelling of the right lower extremity right foot pain, swelling , and discoloration TECHNIQUE: Ankle-brachial indices. FINDINGS: BRACHIAL: Right: Not recorded due to intravenous catheter. Left: 133 mmHg. ANKLE (POSTERIOR TIBIAL): Right: 76 mmHg. (0.57) Left: 91 mmHg. (0.68) ANKLE (DORSALIS PEDIS): Right: 69 mmHg. (0.52) Left: 80 mmHg. (0.60) ANKLE/BRACHIAL INDEX: Right: 0.57, Left: 0.68. IMPRESSION: Abnormal ABIs bilaterally, right greater than left. ACT 112: Negative or not required by law. The above report was generated using voice recognition software. It may contain grammatical, syntax o r spelling errors. Electronically signed by: Garrett Kay M.D. 04/26/2021 8:14 AM
--- NOTE | 2021-04-26 08:53 | Hospitalist Progress Note ---
Date of Service April 26, 2021 Assessment & Plan (1) Osteomyelitis of right foot: Plan: Thad Mora is a 60 yo male with a PMHx of CKD, COPD, DM2, GERD, gout, HLD, HTN, and peripheral neuropathy admitted to the hospital 04/25/21 for worsening right foot pain and swelling with concerns of osteomyelitis and arterial insufficiency. Had been on IV Clinda [employer], recently admitted and was on Meropenem/Dapto before demanding discharge when admitted earlier in the month (2) Pain and swelling of right lower leg: (3) Wound of foot: (4) Hyperlipidemia: (5) Diabetes mellitus, type 2: Plan: Osteomyelitis/ Wound of Right Foot CT RIGHT FOOT: IMPRESSION: * 1. 3.0 x 3.6 cm cutaneous ulceration of the plantar foot centered at the level of the third and fourth metatarsophalangeal joints. * 2. Equivocal osseous erosion involves the plantar aspect of the third metatarsal head. Findings should be correlated clinically to exclude developing osteomyelitis. * 3. Subcutaneous edema suggestive of cellulitis. No abscess. * 4. Subacute to chronic appearing ununited fracture redemonstrated involving the base of the fifth metatarsal. Recent cx with Citrobacter braakii Transitioned to ceftriaxone 1g q24h for once daily dosing. Patient does have a penicillin allergy hx but noted to receive cefazolin in 2017 without adverse reaction Temp 38.4C on admission Blood cultures pending WBC 11.4--> 9.2k today, no further fevers Consulted wound care nurse Podiatry consulted -- follows with Dr Morelos. Concerns for arterial thrombus Consulted orthopedics, vascular surgery Arterial duplex abnormal -- R>L (affected side) Per vascular surgery, plans for angiogram once Cr back to baseline (now 1.45 from 1.9 on admit) Pain and swelling of right lower leg Hx PAD -- continued on ASA, pletal daily - JONELLE duplex US ordered -- ABNORMAL R>L - Venous doppler of RLE ordered -- NEGATIVE for DVT Vascular on consult as above --> Arterial duplex pending but plans for angiogram once Cr stable - Tylenol 650mg po q4h prn for pain --> Added morphine 2mg prn last evening and added oxycodone 5mg Q4h prn - Continue home cilostazol, ASA, and gabapentin Diabetes Mellitus, Type 2 Last A1c 7.0 Home oral agents metformin and pioglitazone held on admission ISS ordered --> BSGs acceptable Hypoglycemia last admission. C-peptide elevated 13.8, suggesting oversecretion by pancreas. No hypoglycemia currently. Continue to monitor May need to consider further work-up for possible insulinoma if recurs, but could have been accumulation of his glimepiride (was on glimepiride, pioglitazone and metformin 1000mg BID [employer]) May need to consider basal insulin Hyperlipidemia Continue home rosuvastatin Hypertension Continue home lisinopril and metoprolol Acute Kidney Injury In setting of infection/DM medications Cr 1.9 on admission, was given 1L NSS Cr improved to 1.45 as above Avoid nephrotoxic agents, renally dose medications when possible Hold lisinopril for this evening BMP in AM Dispo: continued inpatient stay Admission and Anticipated Discharge Date Admission Date: April 25, 2021 Subjective Patient evaluated this afternoon. Pain controlled for the most part with ordered medications but he would like a dose now, increased if possible. Endorsed chills, but no fever [employer]. Cx with Citrobacter and on Ceftriaxone. Anticipating continued at discharge. Has an US guided IV placed last Sunday. Discussed ortho and vascular surgery consulted and plans for angiogram with likely need for intervention based on response. Arterial duplex completed this morning but no official read yet. No cp, sob, abd pain, n/v, dysuria at this time. Review of Systems Review of Systems: All systems reviewed & are unremarkable except as noted in HPI & below Physical Exam Physical Exam: GENERAL: No acute distress. Well developed and well nourished. Laying in bed on phone. AOx3 S: PERRLA. EOMI. Anicteric sclerae. HENT: Moist mucous membranes. No pharyngeal erythema or exudates. RESPIRATORY: Clear to auscultation bilaterally. No wheezing, rales, or rhonchi. CARDIOVASCULAR: Regular rate and rhythm. + murmur. no r/m/g ABDOMEN: Soft, non-tender and non-distended. Normal bowel sounds. EXTREMITIES: RLE with 1-2+ edema to mid-correa. Moderate tenderness to palpation throughout right calf and foot. Full active range of motion of ankle and all toes. No edema or TTP throughout LLE. SKIN: Warm, dry. Ulceration 3.5 x 2 x 2cm to plantar aspect of right foot with multiple stages of healing; there is purulent discharge that can be expressed from the central aspect of the lesion TTP. decreased sensation to light touch. calf tenderness. cap refill >2 seconds ecchymosis to 3rd digit within markings PSYCHIATRIC: Cooperative. Appropriate mood and affect. Results & Data Results & Data ([facility]) Vital Signs (Past 12 Hours) Vital Signs Temp Pulse Pulse Resp BP BP Pulse Ox 04/26/21 07:44 36.7 C 80 18 122/70 95 04/25/21 22:30 36.7 C 93 H 18 162/78 H 93 04/25/21 21:26 93 H 20 159/68 H 96 Laboratory Results 04/26/21 04/26/21 04/26/21 Range/Units 11:36 09:13 09:10 WBC (4.8-10.8) K/uL RBC (4.7-6.1) M/uL Hgb (14.0-18.0) g/dL Hct (42-52) % MCV (80-100) fL MCH (25-34) pg MCHC (32-36) g/dL RDW Std Deviation (36.4-46.3) fL RDW Coeff of Dandy (11.5-14.5) % Plt Count (130-400) K/uL MPV (7.4-10.4) fL Immature Gran % (Auto) % Neut % (Auto) % Lymph % (Auto) % Beauregard % (Auto) % Eos % (Auto) % Baso % (Auto) % Neut # (Auto) (1.4-6.5) K/uL Lymph # (Auto) (1.2-3.4) K/uL Beauregard # (Auto) (0.11-0.59) K/uL Eos # (Auto) (0-0.5) K/uL Baso # (Auto) (0-0.2) K/uL Immature Gran # (Auto) (0.00-0.02) K/uL ESR (0-20) mm/hr Sodium 138 (136-145) mmol/L Potassium 3.9 (3.5-5.1) mmol/L Chloride 106 (98-107) mmol/L Carbon Dioxide 26 (21-32) mmol/L Anion Gap 6.0 (3-11) BUN 21 H (7-18) mg/dl Creatinine 1.45 H D (0.6-1.4) mg/dl Est Cr Clr Drug Dosing 63.0 ml/min Est GFR ( Amer) 60.2 ml/min Est GFR (Non-Af Amer) 52.0 ml/min BUN/Creatinine Ratio 14.1 (10-20) Glucose 148 H (70-99) mg/dl POC Glucose 169 H (70-99) mg/dl Lactate 0.8 (0.4-2.0) mmol/L Calcium 8.0 L (8.5-10.1) mg/dl Total Bilirubin 0.3 (0.2-1) mg/dl AST 11 L (15-37) U/L ALT 19 (12-78) U/L Alkaline Phosphatase 51 (45-117) U/L C-Reactive Protein (0-0.29) mg/dl Total Protein 6.7 (6.4-8.2) gm/dl Albumin 2.5 L (3.4-5.0) gm/dl Globulin 4.2 H (2.5-4.0) gm/dl Albumin/Globulin Ratio 0.6 L (0.9-2) Procalcitonin (0-0.5) ng/ml Urine Color Urine Appearance (Clear) Urine pH (4.5-7.5) Ur Specific Ranson (1.000-1.030) Urine Protein (Negative) Urine Glucose (UA) (Negative) Urine Ketones (Negative) Urine Blood (Negative) Urine Nitrite (Negative) Urine Bilirubin (Negative) Urine Urobilinogen (Negative) Ur Leukocyte Esterase (Negative) Urine WBC (Auto) (0-5) /hpf Urine RBC (Auto) (0-4) /hpf U Hyaline Cast (Auto) (0-5) /lpf U Epithel Cells (Auto) (0-5) /lpf Urine Bacteria (Auto) (Negative) COVID-19 Eval Order SARS-CoV-2 (PCR) (Negative) 04/26/21 04/26/21 04/25/21 Range/Units 09:10 07:59 Unknown WBC 9.21 (4.8-10.8) K/uL RBC 3.30 L (4.7-6.1) M/uL Hgb 10.6 L (14.0-18.0) g/dL Hct 31.2 L (42-52) % MCV 94.5 (80-100) fL MCH 32.1 (25-34) pg MCHC 34.0 (32-36) g/dL RDW Std Deviation 44.8 (36.4-46.3) fL RDW Coeff of Dandy 12.8 (11.5-14.5) % Plt Count 263 (130-400) K/uL MPV 9.4 (7.4-10.4) fL Immature Gran % (Auto) 0.1 % Neut % (Auto) 79.4 % Lymph % (Auto) 12.5 % Beauregard % (Auto) 6.5 % Eos % (Auto) 1.3 % Baso % (Auto) 0.2 % Neut # (Auto) 7.31 H (1.4-6.5) K/uL Lymph # (Auto) 1.15 L (1.2-3.4) K/uL Beauregard # (Auto) 0.60 H (0.11-0.59) K/uL Eos # (Auto) 0.12 (0-0.5) K/uL Baso # (Auto) 0.02 (0-0.2) K/uL Immature Gran # (Auto) 0.01 (0.00-0.02) K/uL ESR 63 H (0-20) mm/hr Sodium (136-145) mmol/L Potassium (3.5-5.1) mmol/L Chloride (98-107) mmol/L Carbon Dioxide (21-32) mmol/L Anion Gap (3-11) BUN (7-18) mg/dl Creatinine (0.6-1.4) mg/dl Est Cr Clr Drug Dosing ml/min Est GFR ( Amer) ml/min Est GFR (Non-Af Amer) ml/min BUN/Creatinine Ratio (10-20) Glucose (70-99) mg/dl POC Glucose 114 H (70-99) mg/dl Lactate (0.4-2.0) mmol/L Calcium (8.5-10.1) mg/dl Total Bilirubin (0.2-1) mg/dl AST (15-37) U/L ALT (12-78) U/L Alkaline Phosphatase (45-117) U/L C-Reactive Protein (0-0.29) mg/dl Total Protein (6.4-8.2) gm/dl Albumin (3.4-5.0) gm/dl Globulin (2.5-4.0) gm/dl Albumin/Globulin Ratio (0.9-2) Procalcitonin (0-0.5) ng/ml Urine Color Urine Appearance (Clear) Urine pH (4.5-7.5) Ur Specific Ranson (1.000-1.030) Urine Protein (Negative) Urine Glucose (UA) (Negative) Urine Ketones (Negative) Urine Blood (Negative) Urine Nitrite (Negative) Urine Bilirubin (Negative) Urine Urobilinogen (Negative) Ur Leukocyte Esterase (Negative) Urine WBC (Auto) (0-5) /hpf Urine RBC (Auto) (0-4) /hpf U Hyaline Cast (Auto) (0-5) /lpf U Epithel Cells (Auto) (0-5) /lpf Urine Bacteria (Auto) (Negative) COVID-19 Eval Order SARS-CoV-2 (PCR) (Negative) 04/25/21 04/25/21 04/25/21 Range/Units Unknown Unknown Unknown WBC 11.49 H (4.8-10.8) K/uL RBC 3.54 L (4.7-6.1) M/uL Hgb 11.3 L (14.0-18.0) g/dL Hct 33.2 L (42-52) % MCV 93.8 (80-100) fL MCH 31.9 (25-34) pg MCHC 34.0 (32-36) g/dL RDW Std Deviation 44.2 (36.4-46.3) fL RDW Coeff of Dandy 12.7 (11.5-14.5) % Plt Count 323 (130-400) K/uL MPV 9.4 (7.4-10.4) fL Immature Gran % (Auto) 0.3 % Neut % (Auto) 82.4 % Lymph % (Auto) 10.3 % Beauregard % (Auto) 6.6 % Eos % (Auto) 0.2 % Baso % (Auto) 0.2 % Neut # (Auto) 9.48 H (1.4-6.5) K/uL Lymph # (Auto) 1.18 L (1.2-3.4) K/uL Beauregard # (Auto) 0.76 H (0.11-0.59) K/uL Eos # (Auto) 0.02 (0-0.5) K/uL Baso # (Auto) 0.02 (0-0.2) K/uL Immature Gran # (Auto) 0.03 H (0.00-0.02) K/uL ESR (0-20) mm/hr Sodium 134 L (136-145) mmol/L Potassium 4.1 (3.5-5.1) mmol/L Chloride 103 (98-107) mmol/L Carbon Dioxide 25 (21-32) mmol/L Anion Gap 6.0 (3-11) BUN 25 H (7-18) mg/dl Creatinine 1.93 H (0.6-1.4) mg/dl Est Cr Clr Drug Dosing 47.6 ml/min Est GFR ( Amer) 42.6 ml/min Est GFR (Non-Af Amer) 36.8 ml/min BUN/Creatinine Ratio 13.0 (10-20) Glucose 144 H (70-99) mg/dl POC Glucose (70-99) mg/dl Lactate (0.4-2.0) mmol/L Calcium 8.7 (8.5-10.1) mg/dl Total Bilirubin 0.5 (0.2-1) mg/dl AST 15 (15-37) U/L ALT 24 (12-78) U/L Alkaline Phosphatase 60 (45-117) U/L C-Reactive Protein 13.80 H (0-0.29) mg/dl Total Protein 8.0 (6.4-8.2) gm/dl Albumin 3.2 L (3.4-5.0) gm/dl Globulin 4.8 H (2.5-4.0) gm/dl Albumin/Globulin Ratio 0.7 L (0.9-2) Procalcitonin 0.88 H (0-0.5) ng/ml Urine Color Urine Appearance (Clear) Urine pH (4.5-7.5) Ur Specific Ranson (1.000-1.030) Urine Protein (Negative) Urine Glucose (UA) (Negative) Urine Ketones (Negative) Urine Blood (Negative) Urine Nitrite (Negative) Urine Bilirubin (Negative) Urine Urobilinogen (Negative) Ur Leukocyte Esterase (Negative) Urine WBC (Auto) (0-5) /hpf Urine RBC (Auto) (0-4) /hpf U Hyaline Cast (Auto) (0-5) /lpf U Epithel Cells (Auto) (0-5) /lpf Urine Bacteria (Auto) (Negative) COVID-19 Eval Order SARS-CoV-2 (PCR) (Negative) 04/25/21 04/25/21 04/25/21 Range/Units 22:41 20:32 16:55 WBC (4.8-10.8) K/uL RBC (4.7-6.1) M/uL Hgb (14.0-18.0) g/dL Hct (42-52) % MCV (80-100) fL MCH (25-34) pg MCHC (32-36) g/dL RDW Std Deviation (36.4-46.3) fL RDW Coeff of Dandy (11.5-14.5) % Plt Count (130-400) K/uL MPV (7.4-10.4) fL Immature Gran % (Auto) % Neut % (Auto) % Lymph % (Auto) % Beauregard % (Auto) % Eos % (Auto) % Baso % (Auto) % Neut # (Auto) (1.4-6.5) K/uL Lymph # (Auto) (1.2-3.4) K/uL Beauregard # (Auto) (0.11-0.59) K/uL Eos # (Auto) (0-0.5) K/uL Baso # (Auto) (0-0.2) K/uL Immature Gran # (Auto) (0.00-0.02) K/uL ESR (0-20) mm/hr Sodium (136-145) mmol/L Potassium (3.5-5.1) mmol/L Chloride (98-107) mmol/L Carbon Dioxide (21-32) mmol/L Anion Gap (3-11) BUN (7-18) mg/dl Creatinine (0.6-1.4) mg/dl Est Cr Clr Drug Dosing ml/min Est GFR ( Amer) ml/min Est GFR (Non-Af Amer) ml/min BUN/Creatinine Ratio (10-20) Glucose (70-99) mg/dl POC Glucose 149 H (70-99) mg/dl Lactate (0.4-2.0) mmol/L Calcium (8.5-10.1) mg/dl Total Bilirubin (0.2-1) mg/dl AST (15-37) U/L ALT (12-78) U/L Alkaline Phosphatase (45-117) U/L C-Reactive Protein (0-0.29) mg/dl Total Protein (6.4-8.2) gm/dl Albumin (3.4-5.0) gm/dl Globulin (2.5-4.0) gm/dl Albumin/Globulin Ratio (0.9-2) Procalcitonin (0-0.5) ng/ml Urine Color Yellow Urine Appearance Clear (Clear) Urine pH 5.0 (4.5-7.5) Ur Specific Ranson 1.018 (1.000-1.030) Urine Protein 2+ H (Negative) Urine Glucose (UA) Negative (Negative) Urine Ketones Trace H (Negative) Urine Blood Negative (Negative) Urine Nitrite Negative (Negative) Urine Bilirubin Negative (Negative) Urine Urobilinogen Negative (Negative) Ur Leukocyte Esterase Negative (Negative) Urine WBC (Auto) 1-5 (0-5) /hpf Urine RBC (Auto) 0-4 (0-4) /hpf U Hyaline Cast (Auto) 5-10 H (0-5) /lpf U Epithel Cells (Auto) 10-20 H (0-5) /lpf Urine Bacteria (Auto) Negative (Negative) COVID-19 Eval Order SARS-CoV-2 (PCR) NEGATIVE (Negative) 04/25/21 04/25/21 Range/Units 16:55 16:10 WBC (4.8-10.8) K/uL RBC (4.7-6.1) M/uL Hgb (14.0-18.0) g/dL Hct (42-52) % MCV (80-100) fL MCH (25-34) pg MCHC (32-36) g/dL RDW Std Deviation (36.4-46.3) fL RDW Coeff of Dandy (11.5-14.5) % Plt Count (130-400) K/uL MPV (7.4-10.4) fL Immature Gran % (Auto) % Neut % (Auto) % Lymph % (Auto) % Beauregard % (Auto) % Eos % (Auto) % Baso % (Auto) % Neut # (Auto) (1.4-6.5) K/uL Lymph # (Auto) (1.2-3.4) K/uL Beauregard # (Auto) (0.11-0.59) K/uL Eos # (Auto) (0-0.5) K/uL Baso # (Auto) (0-0.2) K/uL Immature Gran # (Auto) (0.00-0.02) K/uL ESR (0-20) mm/hr Sodium (136-145) mmol/L Potassium (3.5-5.1) mmol/L Chloride (98-107) mmol/L Carbon Dioxide (21-32) mmol/L Anion Gap (3-11) BUN (7-18) mg/dl Creatinine (0.6-1.4) mg/dl Est Cr Clr Drug Dosing ml/min Est GFR ( Amer) ml/min Est GFR (Non-Af Amer) ml/min BUN/Creatinine Ratio (10-20) Glucose (70-99) mg/dl POC Glucose 165 H (70-99) mg/dl Lactate (0.4-2.0) mmol/L Calcium (8.5-10.1) mg/dl Total Bilirubin (0.2-1) mg/dl AST (15-37) U/L ALT (12-78) U/L Alkaline Phosphatase (45-117) U/L C-Reactive Protein (0-0.29) mg/dl Total Protein (6.4-8.2) gm/dl Albumin (3.4-5.0) gm/dl Globulin (2.5-4.0) gm/dl Albumin/Globulin Ratio (0.9-2) Procalcitonin (0-0.5) ng/ml Urine Color Urine Appearance (Clear) Urine pH (4.5-7.5) Ur Specific Ranson (1.000-1.030) Urine Protein (Negative) Urine Glucose (UA) (Negative) Urine Ketones (Negative) Urine Blood (Negative) Urine Nitrite (Negative) Urine Bilirubin (Negative) Urine Urobilinogen (Negative) Ur Leukocyte Esterase (Negative) Urine WBC (Auto) (0-5) /hpf Urine RBC (Auto) (0-4) /hpf U Hyaline Cast (Auto) (0-5) /lpf U Epithel Cells (Auto) (0-5) /lpf Urine Bacteria (Auto) (Negative) COVID-19 Eval Order Covid19 at [facility] SARS-CoV-2 (PCR) (Negative) Diagnostic Findings Foot X-Ray 04/25/21 16:27 XR foot RT min 3V routine HISTORY: 60 years-old Male swelling acute pain and swelling of the right foot COMPARISON: 04/14/2021 TECHNIQUE: 3 views of the right foot FINDINGS: Subacute to chronic appearing transverse fracture involving the base of the fifth metatarsal is redemonstrated. Fracture distraction measures up to 3 mm, previously 2 mm. Mild to moderate first MTP joint osteoarthritis. There is mild multifocal osteoarthritis without acute fracture, dislocation or osseous erosion. Mild tibiotalar osteoarthritis. Large enthesophyte of the calcaneus at the Achilles insertion site. Arterial calcifications. Mild diffuse soft tissue swelling. IMPRESSION: Slightly worsened distraction of the subacute to chronic fracture involving the base of the fifth metatarsal. ACT 112: Negative or not required by law. The above report was generated using voice recognition software. It may contain grammatical, syntax or spelling errors. Electronically signed by: Garrett Kay M.D. 04/25/2021 4:[address] 04/25/21 17:17 CT foot RT wo con HISTORY: 60 years-old Male swelling acute pain and swelling of the right foot. Reported diabetic foot ulcer COMPARISON: Right foot radiographs of same day, MRI right foot 03/09/2021 TECHNIQUE: Multiple axial CT images of the right foot were obtained without the use of IV contrast. A dose lowering technique was used consistent with the principals of TRACIE. FINDINGS: There is mild subcutaneous edema of the foot, most pronounced dorsally. Mild circumferential subcutaneous edema of the ankle. No drainable fluid collection. There is a cutaneous 3.0 x 3.6 cm ulceration of the plantar foot centered at the level of the third and fourth metatarsal phalangeal joints. Mild associated subcutaneous emphysema. Bipartite medial hallux sesamoid. Mild multifocal osteoarthritis. Subacute to chronic appearing fracture involves the base of the fifth metatarsal with fracture distraction measuring up to 2-3 mm. There is no significant interval osseous bridging of the fracture. Spurring of the calcaneus. There is a questionable tiny osseous erosion involving the plantar aspect of the third metatarsal head (image 21 of series 300 and image 48 of series 301). IMPRESSION: 1. 3.0 x 3.6 cm cutaneous ulceration of the plantar foot centered at the level of the third and fourth metatarsophalangeal joints. 2. Equivocal osseous erosion involves the plantar aspect of the third metatarsal head. Findings should be correlated clinically to exclude developing osteomyelitis. 3. Subcutaneous edema suggestive of cellulitis. No abscess. 4. Subacute to chronic appearing ununited fracture redemonstrated involving the base of the fifth metatarsal. ACT 112: Negative or not required by law. The above report was generated using voice recognition software. It may contain grammatical, syntax or spelling errors. Electronically signed by: Garrett Kay M.D. 04/25/2021 6:09 PM Ankle Brachial Index 04/25/21 20:56 US ankle/brachial index comp HISTORY: Acute pain with soft tissue swelling of the right lower extremity right foot pain, swelling, and discoloration TECHNIQUE: Ankle-brachial indices. FINDINGS: BRACHIAL: Right: Not recorded due to intravenous catheter. Left: 133 mmHg. ANKLE (POSTERIOR TIBIAL): Right: 76 mmHg. (0.57) Left: 91 mmHg. (0.68) ANKLE (DORSALIS PEDIS): Right: 69 mmHg. (0.52) Left: 80 mmHg. (0.60) ANKLE/BRACHIAL INDEX: Right: 0.57, Left: 0.68. IMPRESSION: Abnormal ABIs bilaterally, right greater than left. ACT 112: Negative or not required by law. The above report was generated using voice recognition software. It may contain grammatical, syntax or spelling errors. Electronically signed by: Garrett Kay M.D. 04/26/2021 8:14 AM Venous Doppler Study 04/25/21 20:56 US venous doppler LE RT CLINICAL HISTORY: RLE/right foot pain and swelling to mid calf COMPARISON STUDY: No previous studies for comparison. FINDINGS: Real-time and color flow Doppler imaging were performed. Flow was seen within the femoral, popliteal and calf veins with no intraluminal thrombus demonstrated. The saphenous vein is patent. IMPRESSION: No evidence of deep venous thrombosis. ACT 112: Negative or not required by law. The above report was generated using voice recognition software. It may contain grammatical, syntax or spelling errors. Electronically signed by: Yue Iglesias DO 04/26/2021 7:46 AM PG Care Time/CCT Total # of Minutes Spent Total Time Spent with Patient: Total time spent is greater than 50% in coordination of care (as documented) at patient's floor/unit and/or counseling p atient: Coding Level of Care Code 95091 Subseq Hosp Care Lvl 3 Diagnoses Osteomyelitis of right foot M86.9 Pain and swelling of right lower leg M79.661; M79.89 Wound of foot S91.309A Hyperlipidemia E78.5 Diabetes mellitus, type 2 E11.9
[2021-04-26] MEDS: GABAPENTIN 800 MG TAB PO SCH ×3 (08:56→20:48)
[2021-04-26] MEDS: ASPIRIN 81 MG ECTAB PO SCH (08:56)
[2021-04-26] MEDS: cilostazoL 100 MG TAB PO SCH (08:56)
[2021-04-26] MEDS: INSULIN ASPART 100 UNITS/ML 3 ML PEN SC SCH ×5 (08:58→23:46)
[2021-04-26 09:23] LABS: Hematocrit (blood only) 31.2 % (42-52); Hemoglobin 10.6 g/dL (14.0-18.0); Mean Corpuscular Hemoglobin 32.1 pg (25-34); Mean Corpuscular Volume 94.5 fL (80-100); Mean Platelet Volume 9.4 fL (7.4-10.4); Platelet Count 263 K/uL (130-400); RDW Coefficient of Variation 12.8 % (11.5-14.5); RDW Standard Deviation 44.8 fL (36.4-46.3); White Blood Count 9.21 K/uL (4.8-10.8)
[2021-04-26] MEDS: COLLAGENASE OINT 30 GM TUBE TOP SCH (09:40)
[2021-04-26 09:41] LABS: Basophils # (auto) 0.02 K/uL (0-0.2); Basophils % (auto) 0.2 %; Eosinophils # (auto) 0.12 K/uL (0-0.5); Eosinophils % (auto) 1.3 %; Immature Granulocytes # (auto) 0.01 K/uL (0.00-0.02); Immature Granulocytes % (auto) 0.1 %; Lymphocytes # (auto) 1.15 K/uL (1.2-3.4); Lymphocytes % (auto) 12.5 %; Monocytes % (auto) 6.5 %; Neutrophils # (auto) 7.31 K/uL (1.4-6.5); Neutrophils % (auto) 79.4 %
[2021-04-26 09:55] LABS: Albumin Level 2.5 gm/dl (3.4-5.0); BUN Creatinine Ratio 14.1 (10-20); Est GFR (African American) 60.2 ml/min; Potassium 3.9 mmol/L (3.5-5.1)
[2021-04-26 09:58] LABS: Albumin Globulin Ratio 0.6 (0.9-2); Bilirubin,Total 0.3 mg/dl (0.2-1); Globulin 4.2 gm/dl (2.5-4.0); Total Protein 6.7 gm/dl (6.4-8.2)
--- NOTE | 2021-04-26 10:08 | Orthopedic Consultation ---
Date of Consultation April 26, 2021 Assessment & Plan (1) Acute osteomyelitis of right foot: Continue IV antibiotics per medicine service Dressings to be changed by wound care nurse Pain control per medicine service We will discuss findings with Dr. Torrez History of Present Illness Reason for Consultation: Right foot osteomyelitis third metatarsal head Requesting Physician: Dr. Dalia Torrez Attending Physician: Abhishek Nuno MD History of Present Illness This 62-year-old male was seen this morning in consultation for right foot osteomyelitis affecting the third metatarsal head. Patient was seen in the emergency department yesterday and admitted under medical service after CT scan showed acute osteomyelitis in his right foot. Patient states that he sustained 1/5 metatarsal fracture a few months ago was placed into a cam walker boot. He states that he did notice a blister starting to form in the ulcerated area several weeks ago. He states that he was following with his wound care provider but came into the emergency department at the recommendation after the blister broke and the ulcerated area formed.Patient states that he has pain in his right lower extremity and over the dorsum of the foot. He has no pain on the plantar surface. He states that occasionally he becomes nauseous, however he denies chest pain, shortness of breath, fever, chills, sweats, vomiting, diarrhea or lethargy. He states that due to his peripheral vascular disease and diabetes he does not have much feeling on the plantar surface of the right foot. Allergies Allergy/AdvReac Type Severity Reaction Status Date / Time Penicillins Allergy Severe CHILD Verified 04/22/21 10:58 sulfamethoxazole Allergy Intermediate RASH Verified 04/22/21 10:58 trimethoprim Allergy Intermediate RASH Verified 04/22/21 10:58 Home Medications Medication Instructions Recorded Confirmed Type aspirin 81 mg chewable tablet 81 mg PO QAM 07/15/18 04/25/21 History cilostazol 100 mg tablet 100 mg PO DAILY 07/15/18 04/25/21 History gabapentin 800 mg tablet 800 mg PO TID 07/15/18 04/25/21 History metformin 1,000 mg tablet 1,000 mg PO BID 07/15/18 04/25/21 History pioglitazone 45 mg tablet (Actos) 45 mg PO QAM 07/15/18 04/25/21 History rosuvastatin 20 mg tablet (Crestor) 20 mg PO HS 07/15/18 04/25/21 History clindamycin HCl 150 mg capsule 450 mg PO Q8 04/14/21 04/25/21 [facility] 04/25/21 Rx Verio test strips) blood-glucose meter (OneTouch #1 ea 04/15/21 04/25/21 Rx Verio Meter) glucagon 1 mg solution for 1 mg IM ONCE #1 ea 04/15/21 04/25/21 Rx injection (Glucagon Emergency Kit) lancets 30 gauge (OneTouch Delica #100 ea 04/15/21 04/25/21 Rx Lancets) collagenase clostridium histo. 250 1 applic TOPICAL DAILY 14 Days #30 04/22/21 04/25/21 Rx unit/gram topical ointment (Santyl) g lisinopril 5 mg tablet 5 mg PO .QHS tab 04/22/21 04/25/21 History metoprolol succinate 50 mg 50 mg PO QPM 04/22/21 04/25/21 History tablet,extended release 24 hr gentamicin 0.1 % topical ointment 1 applic TOPICAL DAILY 14 Days #30 04/25/21 04/25/21 Rx g Patient History Medical History Acute hyponatremia MAGDIEL (acute kidney injury) Chronic obstructive pulmonary disease Diabetes mellitus, type 2 Diabetic ulcer of right foot Foot fracture, right GERD (gastroesophageal reflux disease) Gout Hyperlipidemia Hypertension Hypoglycemia Hypoglycemia Osteoarthritis Osteomyelitis of right foot Pain and swelling of right lower leg Peripheral neuropathy Rigors Scoliosis Tobacco abuse Wound of foot Surgical History History of carpal tunnel release RT History of cataract surgery LEFT History of colonoscopy History of esophagogastroduodenoscopy (EGD) History of hand surgery RT TENDON RELEASE History of repair of rotator cuff RT X 2 History of tooth extraction Family History Mother Family history of diabetes mellitus Social History Smoking Status: Current every day smoker Tobacco Type: Cigarettes Age Started Using Tobacco: 16; packs per day: 1; Cigarettes Per Day: 20-40; Second Hand Exposure: No; Do You Dip or Chew Tobacco: No; Tobacco Cessation Education Requested by Patient: No Hx Alcohol Use: No Hx Substance Use: No Preferred Language: German Communication Ability: Effective Stone Operator Required: No Beliefs That Will Affect Care: None marital status: Current Living Situation: Family current occupational status: employed 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 Physical Exam Physical Exam: Right foot: Wound care nurse Татьяна was applying dressing as I entered the room. She did pull it back so that I can visualize the ulcerated area on the plantar surface of the foot. Bone was not exposed. Central portion of the 3-1/2 cm x 2 cm ulceration near the base of the third metatarsal appeared macerated with surrounding excoriation. Patient did not have significant tenderness to palpation on or around the ulcerated area. He was unable to detect light sensation to touch over the pads of digits 2 through 5. He was able to detect light sensation in his great toe. Patient has some tenderness with squeezing his calf. Posterior tibial pulses are faintly palpable. Capillary refill is greater than 2 seconds. Patient had no other notable open skin areas or blistering. He was able to actively dorsi and plantarflex foot. Had appropriate mobility of his digits. He is able to perform a straight leg raise test. Results & Data ([facility]) Vital Signs (Past 12 Hours) Vital Signs Temp Pulse Resp BP Pulse Ox 04/26/21 07:44 36.7 C 80 18 122/70 95 04/25/21 22:30 36.7 C 93 H 18 162/78 H 93 Laboratory Results 04/26/21 04/26/21 04/26/21 Range/Units 09:13 09:10 09:10 WBC 9.21 (4.8-10.8) K/uL RBC 3.30 L (4.7-6.1) M/uL Hgb 10.6 L (14.0-18.0) g/dL Hct 31.2 L (42-52) % MCV 94.5 (80-100) fL MCH 32.1 (25-34) pg MCHC 34.0 (32-36) g/dL RDW Std Deviation 44.8 (36.4-46.3) fL RDW Coeff of Dandy 12.8 (11.5-14.5) % Plt Count 263 (130-400) K/uL MPV 9.4 (7.4-10.4) fL Immature Gran % (Auto) 0.1 % Neut % (Auto) 79.4 % Lymph % (Auto) 12.5 % [place] % (Auto) 6.5 % Eos % (Auto) 1.3 % Baso % (Auto) 0.2 % Neut # (Auto) 7.31 H (1.4-6.5) K/uL Lymph # (Auto) 1.15 L (1.2-3.4) K/uL [place] # (Auto) 0.60 H (0.11-0.59) K/uL Eos # (Auto) 0.12 (0-0.5) K/uL Baso # (Auto) 0.02 (0-0.2) K/uL Immature Gran # (Auto) 0.01 (0.00-0.02) K/uL ESR (0-20) mm/hr Sodium 138 (136-145) mmol/L Potassium 3.9 (3.5-5.1) mmol/L Chloride 106 (98-107) mmol/L Carbon Dioxide 26 (21-32) mmol/L Anion Gap 6.0 (3-11) BUN 21 H (7-18) mg/dl Creatinine 1.45 H D (0.6-1.4) mg/dl Est Cr Clr Drug Dosing 63.0 ml/min Est GFR ( Amer) 60.2 ml/min Est GFR (Non-Af Amer) 52.0 ml/min BUN/Creatinine Ratio 14.1 (10-20) Glucose 148 H (70-99) mg/dl POC Glucose (70-99) mg/dl Lactate 0.8 (0.4-2.0) mmol/L Calcium 8.0 L (8.5-10.1) mg/dl Total Bilirubin 0.3 (0.2-1) mg/dl AST 11 L (15-37) U/L ALT 19 (12-78) U/L Alkaline Phosphatase 51 (45-117) U/L C-Reactive Protein (0-0.29) mg/dl Total Protein 6.7 (6.4-8.2) gm/dl Albumin 2.5 L (3.4-5.0) gm/dl Globulin 4.2 H (2.5-4.0) gm/dl Albumin/Globulin Ratio 0.6 L (0.9-2) Procalcitonin (0-0.5) ng/ml Urine Color Urine Appearance (Clear) Urine pH (4.5-7.5) Ur Specific [place] (1.000-1.030) Urine Protein (Negative) Urine Glucose (UA) (Negative) Urine Ketones (Negative) Urine Blood (Negative) Urine Nitrite (Negative) Urine Bilirubin (Negative) Urine Urobilinogen (Negative) Ur Leukocyte Esterase (Negative) Urine WBC (Auto) (0-5) /hpf Urine RBC (Auto) (0-4) /hpf U Hyaline Cast (Auto) (0-5) /lpf U Epithel Cells (Auto) (0-5) /lpf Urine Bacteria (Auto) (Negative) COVID-19 Eval Order SARS-CoV-2 (PCR) (Negative) 04/26/21 04/25/21 04/25/21 Range/Units 07:59 Unknown Unknown WBC (4.8-10.8) K/uL RBC (4.7-6.1) M/uL Hgb (14.0-18.0) g/dL Hct (42-52) % MCV (80-100) fL MCH (25-34) pg MCHC (32-36) g/dL RDW Std Deviation (36.4-46.3) fL RDW Coeff of Dandy (11.5-14.5) % Plt Count (130-400) K/uL MPV (7.4-10.4) fL Immature Gran % (Auto) % Neut % (Auto) % Lymph % (Auto) % [place] % (Auto) % Eos % (Auto) % Baso % (Auto) % Neut # (Auto) (1.4-6.5) K/uL Lymph # (Auto) (1.2-3.4) K/uL [place] # (Auto) (0.11-0.59) K/uL Eos # (Auto) (0-0.5) K/uL Baso # (Auto) (0-0.2) K/uL Immature Gran # (Auto) (0.00-0.02) K/uL ESR 63 H (0-20) mm/hr Sodium (136-145) mmol/L Potassium (3.5-5.1) mmol/L Chloride (98-107) mmol/L Carbon Dioxide (21-32) mmol/L Anion Gap (3-11) BUN (7-18) mg/dl Creatinine (0.6-1.4) mg/dl Est Cr Clr Drug Dosing ml/min Est GFR ( Amer) ml/min Est GFR (Non-Af Amer) ml/min BUN/Creatinine Ratio (10-20) Glucose (70-99) mg/dl POC Glucose 114 H (70-99) mg/dl Lactate (0.4-2.0) mmol/L Calcium (8.5-10.1) mg/dl Total Bilirubin (0.2-1) mg/dl AST (15-37) U/L ALT (12-78) U/L Alkaline Phosphatase (45-117) U/L C-Reactive Protein (0-0.29) mg/dl Total Protein (6.4-8.2) gm/dl Albumin (3.4-5.0) gm/dl Globulin (2.5-4.0) gm/dl Albumin/Globulin Ratio (0.9-2) Procalcitonin 0.88 H (0-0.5) ng/ml Urine Color Urine Appearance (Clear) Urine pH (4.5-7.5) Ur Specific [place] (1.000-1.030) Urine Protein (Negative) Urine Glucose (UA) (Negative) Urine Ketones (Negative) Urine Blood (Negative) Urine Nitrite (Negative) Urine Bilirubin (Negative) Urine Urobilinogen (Negative) Ur Leukocyte Esterase (Negative) Urine WBC (Auto) (0-5) /hpf Urine RBC (Auto) (0-4) /hpf U Hyaline Cast (Auto) (0-5) /lpf U Epithel Cells (Auto) (0-5) /lpf Urine Bacteria (Auto) (Negative) COVID-19 Eval Order SARS-CoV-2 (PCR) (Negative) 04/25/21 04/25/21 04/25/21 Range/Units Unknown Unknown 22:41 WBC 11.49 H (4.8-10.8) K/uL RBC 3.54 L (4.7-6.1) M/uL Hgb 11.3 L (14.0-18.0) g/dL Hct 33.2 L (42-52) % MCV 93.8 (80-100) fL MCH 31.9 (25-34) pg MCHC 34.0 (32-36) g/dL RDW Std Deviation 44.2 (36.4-46.3) fL RDW Coeff of Dandy 12.7 (11.5-14.5) % Plt Count 323 (130-400) K/uL MPV 9.4 (7.4-10.4) fL Immature Gran % (Auto) 0.3 % Neut % (Auto) 82.4 % Lymph % (Auto) 10.3 % [place] % (Auto) 6.6 % Eos % (Auto) 0.2 % Baso % (Auto) 0.2 % Neut # (Auto) 9.48 H (1.4-6.5) K/uL Lymph # (Auto) 1.18 L (1.2-3.4) K/uL [place] # (Auto) 0.76 H (0.11-0.59) K/uL Eos # (Auto) 0.02 (0-0.5) K/uL Baso # (Auto) 0.02 (0-0.2) K/uL Immature Gran # (Auto) 0.03 H (0.00-0.02) K/uL ESR (0-20) mm/hr Sodium 134 L (136-145) mmol/L Potassium 4.1 (3.5-5.1) mmol/L Chloride 103 (98-107) mmol/L Carbon Dioxide 25 (21-32) mmol/L Anion Gap 6.0 (3-11) BUN 25 H (7-18) mg/dl Creatinine 1.93 H (0.6-1.4) mg/dl Est Cr Clr Drug Dosing 47.6 ml/min Est GFR ( Amer) 42.6 ml/min Est GFR (Non-Af Amer) 36.8 ml/min BUN/Creatinine Ratio 13.0 (10-20) Glucose 144 H (70-99) mg/dl POC Glucose 149 H (70-99) mg/dl Lactate (0.4-2.0) mmol/L Calcium 8.7 (8.5-10.1) mg/dl Total Bilirubin 0.5 (0.2-1) mg/dl AST 15 (15-37) U/L ALT 24 (12-78) U/L Alkaline Phosphatase 60 (45-117) U/L C-Reactive Protein 13.80 H (0-0.29) mg/dl Total Protein 8.0 (6.4-8.2) gm/dl Albumin 3.2 L (3.4-5.0) gm/dl Globulin 4.8 H (2.5-4.0) gm/dl Albumin/Globulin Ratio 0.7 L (0.9-2) Procalcitonin (0-0.5) ng/ml Urine Color Urine Appearance (Clear) Urine pH (4.5-7.5) Ur Specific [place] (1.000-1.030) Urine Protein (Negative) Urine Glucose (UA) (Negative) Urine Ketones (Negative) Urine Blood (Negative) Urine Nitrite (Negative) Urine Bilirubin (Negative) Urine Urobilinogen (Negative) Ur Leukocyte Esterase (Negative) Urine WBC (Auto) (0-5) /hpf Urine RBC (Auto) (0-4) /hpf U Hyaline Cast (Auto) (0-5) /lpf U Epithel Cells (Auto) (0-5) /lpf Urine Bacteria (Auto) (Negative) COVID-19 Eval Order SARS-CoV-2 (PCR) (Negative) 04/25/21 04/25/21 04/25/21 Range/Units 20:32 16:55 16:55 WBC (4.8-10.8) K/uL RBC (4.7-6.1) M/uL Hgb (14.0-18.0) g/dL Hct (42-52) % MCV (80-100) fL MCH (25-34) pg MCHC (32-36) g/dL RDW Std Deviation (36.4-46.3) fL RDW Coeff of Dandy (11.5-14.5) % Plt Count (130-400) K/uL MPV (7.4-10.4) fL Immature Gran % (Auto) % Neut % (Auto) % Lymph % (Auto) % [place] % (Auto) % Eos % (Auto) % Baso % (Auto) % Neut # (Auto) (1.4-6.5) K/uL Lymph # (Auto) (1.2-3.4) K/uL [place] # (Auto) (0.11-0.59) K/uL Eos # (Auto) (0-0.5) K/uL Baso # (Auto) (0-0.2) K/uL Immature Gran # (Auto) (0.00-0.02) K/uL ESR (0-20) mm/hr Sodium (136-145) mmol/L Potassium (3.5-5.1) mmol/L Chloride (98-107) mmol/L Carbon Dioxide (21-32) mmol/L Anion Gap (3-11) BUN (7-18) mg/dl Creatinine (0.6-1.4) mg/dl Est Cr Clr Drug Dosing ml/min Est GFR ( Amer) ml/min Est GFR (Non-Af Amer) ml/min BUN/Creatinine Ratio (10-20) Glucose (70-99) mg/dl POC Glucose (70-99) mg/dl Lactate (0.4-2.0) mmol/L Calcium (8.5-10.1) mg/dl Total Bilirubin (0.2-1) mg/dl AST (15-37) U/L ALT (12-78) U/L Alkaline Phosphatase (45-117) U/L C-Reactive Protein (0-0.29) mg/dl Total Protein (6.4-8.2) gm/dl Albumin (3.4-5.0) gm/dl Globulin (2.5-4.0) gm/dl Albumin/Globulin Ratio (0.9-2) Procalcitonin (0-0.5) ng/ml Urine Color Yellow Urine Appearance Clear (Clear) Urine pH 5.0 (4.5-7.5) Ur Specific [place] 1.018 (1.000-1.030) Urine Protein 2+ H (Negative) Urine Glucose (UA) Negative (Negative) Urine Ketones Trace H (Negative) Urine Blood Negative (Negative) Urine Nitrite Negative (Negative) Urine Bilirubin Negative (Negative) Urine Urobilinogen Negative (Negative) Ur Leukocyte Esterase Negative (Negative) Urine WBC (Auto) 1-5 (0-5) /hpf Urine RBC (Auto) 0-4 (0-4) /hpf U Hyaline Cast (Auto) 5-10 H (0-5) /lpf U Epithel Cells (Auto) 10-20 H (0-5) /lpf Urine Bacteria (Auto) Negative (Negative) COVID-19 Eval Order Covid19 at [facility] SARS-CoV-2 (PCR) NEGATIVE (Negative) 04/25/21 Range/Units 16:10 WBC (4.8-10.8) K/uL RBC (4.7-6.1) M/uL Hgb (14.0-18.0) g/dL Hct (42-52) % MCV (80-100) fL MCH (25-34) pg MCHC (32-36) g/dL RDW Std Deviation (36.4-46.3) fL RDW Coeff of Dandy (11.5-14.5) % Plt Count (130-400) K/uL MPV (7.4-10.4) fL Immature Gran % (Auto) % Neut % (Auto) % Lymph % (Auto) % [place] % (Auto) % Eos % (Auto) % Baso % (Auto) % Neut # (Auto) (1.4-6.5) K/uL Lymph # (Auto) (1.2-3.4) K/uL [place] # (Auto) (0.11-0.59) K/uL Eos # (Auto) (0-0.5) K/uL Baso # (Auto) (0-0.2) K/uL Immature Gran # (Auto) (0.00-0.02) K/uL ESR (0-20) mm/hr Sodium (136-145) mmol/L Potassium (3.5-5.1) mmol/L Chloride (98-107) mmol/L Carbon Dioxide (21-32) mmol/L Anion Gap (3-11) BUN (7-18) mg/dl Creatinine (0.6-1.4) mg/dl Est Cr Clr Drug Dosing ml/min Est GFR ( Amer) ml/min Est GFR (Non-Af Amer) ml/min BUN/Creatinine Ratio (10-20) Glucose (70-99) mg/dl POC Glucose 165 H (70-99) mg/dl Lactate (0.4-2.0) mmol/L Calcium (8.5-10.1) mg/dl Total Bilirubin (0.2-1) mg/dl AST (15-37) U/L ALT (12-78) U/L Alkaline Phosphatase (45-117) U/L C-Reactive Protein (0-0.29) mg/dl Total Protein (6.4-8.2) gm/dl Albumin (3.4-5.0) gm/dl Globulin (2.5-4.0) gm/dl Albumin/Globulin Ratio (0.9-2) Procalcitonin (0-0.5) ng/ml Urine Color Urine Appearance (Clear) Urine pH (4.5-7.5) Ur Specific [place] (1.000-1.030) Urine Protein (Negative) Urine Glucose (UA) (Negative) Urine Ketones (Negative) Urine Blood (Negative) Urine Nitrite (Negative) Urine Bilirubin (Negative) Urine Urobilinogen (Negative) Ur Leukocyte Esterase (Negative) Urine WBC (Auto) (0-5) /hpf Urine RBC (Auto) (0-4) /hpf U Hyaline Cast (Auto) (0-5) /lpf U Epithel Cells (Auto) (0-5) /lpf Urine Bacteria (Auto) (Negative) COVID-19 Eval Order SARS-CoV-2 (PCR) (Negative)
[2021-04-26] MEDS ORDERED: oxyCODONE HCL IR 5 MG TAB (IMMEDIATE RELEASE) PO PRN (12:40)
--- NOTE | 2021-04-26 14:33 | Ultrasound Report ---
ULTRASOUND US arterial duplex LE BI CLINICAL HISTORY: PAD COMPARISON STUDY: January 11, 2012 FINDINGS: Real-time as well as Doppler evaluation of the arterial structures of the lower legs was p erformed. Heavy calcified plaques are again seen bilaterally. Increased velocity with triphasic flow is seen within common femoral and proximal aspect of the supe rficial femoral artery (peak systolic velocities measuring 181 cm/s within right common femoral arter y) There is complete occlusion of the mid aspect of the right popliteal artery and reconstitution of the blood flow within calf arteries through collaterals which shows slow monophasic flow. Increase velocities are seen within left common femoral artery measuring 170 cm/s and show triphasic flow. Mild decrease in flow velocity seen within the proximal aspect of the femoral artery. Focal area of n onvisualization flow and possible occlusion is seen within distal aspect of the left femoral artery. Reconstitution of the flow is seen within left popliteal artery and show monophasic waveform. Flow is visualized within left posterior tibialis, left peroneal and left anterior tibialis artery wh ich shows some slow monophasic flow. Monophasic waveform are visualized within left dorsalis pedis artery. IMPRESSION: 1. Complete occlusion of the mid aspect of the right popliteal artery with reconstitution of the tamara w within calf arteries via collaterals which shows slow monophasic flow. 2. Focal area of nonvisualization of the flow and possible occlusion within distal aspect of the lef t femoral artery. 3. Increased velocities within the right superior femoral artery and left common femoral artery like ly due to stenosis. 4. Extensive calcified plaques within the posterior urias of bilateral lower extremities. 5. The rest of findings as above. Electronically signed by: Yue Iglesias DO 04/26/2021 2:31 PM
[2021-04-26] MEDS: oxyCODONE HCL IR 5 MG TAB (IMMEDIATE RELEASE) PO PRN (18:41)
--- NOTE | 2021-04-26 19:20 | Vascular Medicine Consultation ---
Date of Consultation April 26, 2021 Assessment & Plan (1) PAD (peripheral artery disease): Patient seen today in the setting of non-healing diabetic foot ulceration with possible osteomyelitis. Exam and non-invasive vascular testing suggestive of significant arterial insufficiency. Threatened limb with potential benefit from revascularization high. Review of arterial imaging consistent with heavily calcified SFA/popliteal disease potentially amenable to endovascular intervention. Recommend proceeding with right LE angiogram and likely intervention. Discussed risks, benefits, alternatives of procedure and they are willing to proceed. Renal function back to baseline. Tentatively plan on procedure tomorrow. History of Present Illness Attending Physician: Abhishek Nuno MD History of Present Illness Mr. Mora is a 60-year-old man seen today for right diabetic foot ulcer in the setting of PAD. Prior medical history remarkable for longstanding diabetes on oral therapy with peripheral neuropathy, chronic kidney disease, hypertension, dyslipidemia, COPD. He is a long-term ongoing smoker, currently 1 PPD. No history of prior cardiac or vascular procedures. Patient states he fractured fifth metatarsal in his foot in early March after fall. Followed by Dr. Anastasia Rosenthal since that time. Placed in walking boot. States that after boot noted new ulceration on the plantar aspect of his foot approximately 2 to 3 weeks ago. Hospitalized 10 days ago in the setting of hypoglycemia. Has been on p.o. and IV antibiotics since that time Seen by wound center 4 days ago, post debridement. Wound has continued to progress. CT of foot yesterday with erosion of third metatarsal concerning for developing osteomyelitis. Recent vascular testing: JONELLE: Right 0.57, left 0.68 Arterial duplex today: Right lower extremitycalcified moderate FOREIGN CLERK disease, distal SFA/proximal popliteal disease prior to popliteal occlusion. Patent tibials/peroneal Allergies Allergy/AdvReac Type Severity Reaction Status Date / Time Penicillins Allergy Severe CHILD Verified 04/22/21 10:58 sulfamethoxazole Allergy Intermediate RASH Verified 04/22/21 10:58 trimethoprim Allergy Intermediate RASH Verified 04/22/21 10:58 Home Medications Medication Instructions Recorded Confirmed Type aspirin 81 mg chewable tablet 81 mg PO QAM 07/15/18 04/25/21 History cilostazol 100 mg tablet 100 mg PO DAILY 07/15/18 04/25/21 History gabapentin 800 mg tablet 800 mg PO TID 07/15/18 04/25/21 History metformin 1,000 mg tablet 1,000 mg PO BID 07/15/18 04/25/21 History pioglitazone 45 mg tablet (Actos) 45 mg PO QAM 07/15/18 04/25/21 History rosuvastatin 20 mg tablet (Crestor) 20 mg PO HS 07/15/18 04/25/21 History clindamycin HCl 150 mg capsule 450 mg PO Q8 04/14/21 04/25/21 History blood sugar diagnostic (OneTouch #50 ea 04/15/21 04/25/21 Rx Verio test strips) blood-glucose meter (OneTouch #1 ea 04/15/21 04/25/21 Rx Verio Meter) glucagon 1 mg solution for 1 mg IM ONCE #1 ea 04/15/21 04/25/21 Rx injection (Glucagon Emergency Kit) lancets 30 gauge (OneTouch Delica #100 ea 04/15/21 04/25/21 Rx Lancets) collagenase clostridium histo. 250 1 applic TOPICAL DAILY 14 Days #30 04/22/21 04/25/21 Rx unit/gram topical ointment (Santyl) g lisinopril 5 mg tablet 5 mg PO .QHS tab 04/22/21 04/25/21 History metoprolol succinate 50 mg 50 mg PO QPM 04/22/21 04/25/21 History tablet,extended release 24 hr gentamicin 0.1 % topical ointment 1 applic TOPICAL DAILY 14 Days #30 04/25/21 04/25/21 Rx g Patient History Medical History Acute hyponatremia MAGDIEL (acute kidney injury) Chronic obstructive pulmonary disease Diabetes mellitus, type 2 Diabetic ulcer of right foot Foot fracture, right GERD (gastroesophageal reflux disease) Gout Hyperlipidemia Hypertension Hypoglycemia Hypoglycemia Osteoarthritis Osteomyelitis of right foot Pain and swelling of right lower leg Peripheral neuropathy Rigors Scoliosis Tobacco abuse Wound of foot Surgical History History of carpal tunnel release RT History of cataract surgery LEFT History of colonoscopy History of esophagogastroduodenoscopy (EGD) History of hand surgery RT TENDON RELEASE History of repair of rotator cuff RT X 2 History of tooth extraction Family History Mother Family history of diabetes mellitus Social History Smoking Status: Current every day smoker Tobacco Type: Cigarettes Age Started Using Tobacco: 16; packs per day: 1; Cigarettes Per Day: 20-40; Second Hand Exposure: No; Do You Dip or Chew Tobacco: No; Tobacco Cessation Education Requested by Patient: No Hx Alcohol Use: No Hx Substance Use: No Preferred Language: Lithuanian Communication Ability: Effective Hand Endband Cutter Required: No Beliefs That Will Affect Care: None marital status: Current Living Situation: Family current occupational status: employed 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 Other Information That Helps Us Care for You: No Feels Safe at Home: Yes Safety Concerns: Feels Safe At This Time Diet Comment: States trying to reduce carb intake caffeine: No during the past year weight has: remained stable Do you think of yourself as: straight/heterosexual Gender Identity: Male Assistive Devices: None Physical Exam Physical Exam: General: Comfortable, no acute distress Eyes: Sclerae anicteric Lungs: Clear to auscultation bilaterally, no rhonchi or wheezes Cardiac: Regular rate and rhythm, no murmurs Abdomen: Soft, nontender Neuro: Nonfocal Psych: Alert orient x3, normal affect and mood Extremities/Vascular: -- 2+ radial bilaterally -- 2+ femoral bilaterally 1+ left popliteal, nonpalpable right popliteal --Right palpable DP, diminished PT. Left 1+ PT/DP -- Ulcer: Superficial 8 x 2 cm wound involving plantar aspect of right foot primarily centered over second metatarsal head. Minimal drainage. Minimal slough over pale/yellow wound base. Periwound is intact with callus present. Results & Data ([facility]) Vital Signs (Past 12 Hours) Vital Signs Temp Pulse Resp BP Pulse Ox 04/26/21 15:11 98.6 F 85 18 155/79 H 96 04/26/21 07:44 98.1 F 80 18 122/70 95 PG Care Time/CCT Total # of Minutes Spent Total Time Spent with Patient: Total time spent is greater than 50% in coordination of care (as documented) at patient's floor/unit and/or counseling patient: Coding Level of Care Code 30827 Inpt Consult Level 4 Diagnoses PAD (peripheral artery disease) I73.9
[2021-04-26] MEDS ORDERED: PHARMACY GLYCEMIC MGMT CONSULT PRN (19:27)
[2021-04-26] MEDS: ROSUVASTATIN CALCIUM 20 MG TAB PO SCH (20:50)
[2021-04-26] MEDS: METOPROLOL SUCC 50MG EXT REL TAB PO SCH (20:50)
[2021-04-26] MEDS: cefTRIAXone SODIUM 2,000 MG in DEXTROSE 5% 50 ML IV SCH (22:27)
[2021-04-27] MEDS: INSULIN ASPART 100 UNITS/ML 3 ML PEN SC SCH ×4 (06:09→23:56)
[2021-04-27 08:28] LABS: Basophils # (auto) 0.01 K/uL (0-0.2); Basophils % (auto) 0.1 %; Eosinophils # (auto) 0.23 K/uL (0-0.5); Eosinophils % (auto) 2.6 %; Hematocrit (blood only) 31.7 % (42-52); Hemoglobin 10.8 g/dL (14.0-18.0); Immature Granulocytes # (auto) 0.02 K/uL (0.00-0.02); Immature Granulocytes % (auto) 0.2 %; Lymphocytes # (auto) 1.38 K/uL (1.2-3.4); Lymphocytes % (auto) 15.5 %; Mean Corpuscular Hemoglobin 32.1 pg (25-34); Mean Corpuscular Hgb Conc 34.1 g/dL (32-36); Mean Corpuscular Volume 94.3 fL (80-100); Mean Platelet Volume 9.8 fL (7.4-10.4); Monocytes % (auto) 7.9 %; Neutrophils # (auto) 6.56 K/uL (1.4-6.5); Neutrophils % (auto) 73.7 %; Platelet Count 301 K/uL (130-400); RDW Coefficient of Variation 12.8 % (11.5-14.5); RDW Standard Deviation 44.4 fL (36.4-46.3); Red Blood Count 3.36 M/uL (4.7-6.1)
--- NOTE | 2021-04-27 09:16 | Hospitalist Progress Note ---
Date of Service April 27, 2021 Assessment & Plan (1) Osteomyelitis of right foot: Plan: Thad Mora is a 60 yo male with a PMHx of CKD, COPD, DM2, GERD, gout, HLD, HTN, and peripheral neuropathy admitted to the hospital 04/25/21 for worsening right foot pain and swelling with concerns of osteomyelitis and arterial insufficiency. 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 3.0 x 3.6 cm cutaneous ulceration of the plantar foot centered at the level of the third and fourth metatarsophalangeal joints. * 2. Equivocal osseous erosion involves the plantar aspect of the third metatarsal head. Findings should be correlated clinically to exclude developing osteomyelitis. * 3. Subcutaneous edema suggestive of cellulitis. No abscess. * 4. Subacute to chronic appearing ununited fracture re-demonstrated involving the base of the fifth metatarsal. Recent cx with Citrobacter braakii Transitioned to ceftriaxone 1g q24h for once daily dosing (dose of Cefepime in ER, 2 days of Ceftriaxone today). Patient does have a penicillin allergy hx but noted to receive cefazolin in 2017 without adverse reaction Temp 38.4C on admission Blood cultures pending Fever 38.4C afternoon 04/25. Blood cultures pending. Denies fever/chills WBC 8.9k today Ordered 500cc NSS @80cc/hr for now Consulted wound care nurse Podiatry consulted -- follows with Dr Torrez. Concerns for arterial thrombus. -->JONELLE: Right 0.57, left 0.68 Venous Doppler NEGATIVE for DVT Vascular surgery consulted, Dr Poe * Arterial duplex abnormal -- R>L (affected side) * Impression: * 1. Complete occlusion of the mid aspect of the right popliteal artery with reconstitution of the flow within calf arteries via collaterals which shows slow monophasic flow. * 2. Focal area of nonvisualization of the flow and possible occlusion within distal aspect of the left femoral artery. * 3. Increased velocities within the right superior femoral artery and left common femoral artery likely due to stenosis. * 4. Extensive calcified plaques within the posterior urias of bilateral lower extremities. Remains NPO Per vascular surgery, plans for angiogram today as Cr back to baseline--> taken down at end of conversation Pending Cr response with dye, possible intervention based on results of angiogram today. Per podiatry, plans for surgery next Sunday. Considered d/c on abx vs continued inpatient stay until that time. Patient prefer to stay and get taken care of now Pain and swelling of right lower leg Hx PAD -- continued on ASA, Pletal daily JONELLE duplex US ordered -- ABNORMAL R>L Venous doppler of RLE -- NEGATIVE for DVT Vascular on consult as above --> Arterial duplex as above with plans for angiogram today with Dr. Poe as Cr stable Tylenol 650mg po q4h prn for pain --> Added morphine 2mg prn last evening and added oxycodone 5mg Q4h prn (increase to 2 tablets prn) Continue home cilostazol, ASA, and gabapentin (could consider increasing gabapentin) Diabetes Mellitus, Type 2 Last A1c 7.0 Home oral agents metformin and pioglitazone held on admission ISS ordered --> BSGs acceptable Hypoglycemia last admission. C-peptide elevated 13.8, suggesting oversecretion by pancreas. Continue to monitor -- have been acceptable, no hypoglycemia May need to consider further work-up for possible insulinoma if recurs, but could have been accumulation of his glimepiride (was on glimepiride, pioglitazone and metformin 1000mg BID WATER MANGLE TENDER) May need to consider basal insulin Hyperlipidemia Continue home rosuvastatin Hypertension BP elevated this morning 160/83 but endorsed component of pain Lisinopril held for MAGDIEL, resolved on AM labs and can resume in AM pending BMP given dye from angiogram for today Continue usual metoprolol Hydralazine prn Continue to monitor Acute Kidney Injury In setting of infection/DM medications Cr 1.9 on admission, was given 1L NSS Lisinopril held Cr improved to 1.33 on Am labs (best it has been in our system) Avoid nephrotoxic agents, renally dose medications when possible Continue to monitor BMP Dispo: continued inpatient stay, angiogram currently plans to be determined based on those results Admission and Anticipated Discharge Date Admission Date: April 25, 2021 Subjective Patient seen around lunch time. States he is "fucking pissed" regarding waiting for current angiogram as last admission was told to eat meals throughout the day as he had previously skipped breakfast/lunch and now is upset he has not eaten. Discussed contacted vascular and they should be up for him shortly. States he cannot have a bowel movement now and that pain present and hasn't gotten anything since last night. Discussed that plan for angiogram to see where blockage is and then hopefully based on response of kidneys to dye can plan for intervention. Dr Torrez saw this morning and plans on surgery next Sunday for amputation. Patient would like to remain inpatient until that time, and was alerted podiatry out of town this weekend but that [facility] would be checking in. Will continue current abx as scheduled. No fevr, chill, cp, sob, abd pain, n/v/d at this time. Review of Systems Review of Systems: All systems reviewed & are unremarkable except as noted in HPI & below Physical Exam Physical Exam: GENERAL: No acute distress. Well developed and well nourished. Laying in bed AOx3, angry about not having anything to eat yet S: PERRLA. EOMI. Anicteric sclerae. HENT: Moist mucous membranes slightly dry. No pharyngeal erythema or exudates. RESPIRATORY: Clear to auscultation bilaterally. No wheezing, rales, or rhonchi. CARDIOVASCULAR: Regular rate and rhythm. + murmur. no /g ABDOMEN: Soft, non-tender and non-distended. Normal bowel sounds. EXTREMITIES: RLE with 1+ edema to mid-correa. Moderate tenderness to palpation throughout right calf and foot. Full active range of motion of ankle and all toes. No edema or TTP throughout LLE. SKIN: Warm, dry. Ulceration 3.5 x 2 x 2cm to plantar aspect of right foot with multiple stages of healing; there is purulent discharge that can be expressed from the central aspect of the lesion TTP. decreased sensation to light touch. calf tenderness. cap refill >2 seconds ecchymosis to 3rd digit within markings PSYCHIATRIC: Cooperative. Appropriate mood and affect. Results & Data Results & Data ([facility]) Vital Signs (Past 12 Hours) Vital Signs Temp Pulse Pulse Resp BP Pulse Ox 04/27/21 07:26 37.1 C 79 18 124/74 95 04/26/21 21:58 36.7 C 85 18 134/74 94 Laboratory Results 04/27/21 04/27/21 04/27/21 Range/Units 11:56 07:47 07:47 WBC 8.90 (4.8-10.8) K/uL RBC 3.36 L (4.7-6.1) M/uL Hgb 10.8 L (14.0-18.0) g/dL Hct 31.7 L (42-52) % MCV 94.3 (80-100) fL MCH 32.1 (25-34) pg MCHC 34.1 (32-36) g/dL RDW Std Deviation 44.4 (36.4-46.3) fL RDW Coeff of Dandy 12.8 (11.5-14.5) % Plt Count 301 (130-400) K/uL MPV 9.8 (7.4-10.4) fL Immature Gran % (Auto) 0.2 % Neut % (Auto) 73.7 % Lymph % (Auto) 15.5 % Howell % (Auto) 7.9 % Eos % (Auto) 2.6 % Baso % (Auto) 0.1 % Neut # (Auto) 6.56 H (1.4-6.5) K/uL Lymph # (Auto) 1.38 (1.2-3.4) K/uL Howell # (Auto) 0.70 H (0.11-0.59) K/uL Eos # (Auto) 0.23 (0-0.5) K/uL Baso # (Auto) 0.01 (0-0.2) K/uL Immature Gran # (Auto) 0.02 (0.00-0.02) K/uL Sodium 135 L (136-145) mmol/L Potassium 4.2 (3.5-5.1) mmol/L Chloride 106 (98-107) mmol/L Carbon Dioxide 25 (21-32) mmol/L Anion Gap 4.0 (3-11) BUN 21 H (7-18) mg/dl Creatinine 1.33 (0.6-1.4) mg/dl Est Cr Clr Drug Dosing 68.3 ml/min Est GFR ( Amer) 66.9 ml/min Est GFR (Non-Af Amer) 57.7 ml/min BUN/Creatinine Ratio 15.7 (10-20) Glucose 142 H (70-99) mg/dl POC Glucose 146 H (70-99) mg/dl Calcium 8.2 L (8.5-10.1) mg/dl Phosphorus 3.2 (2.5-4.9) mg/dl Magnesium 2.1 (1.8-2.4) mg/dl Total Bilirubin 0.2 (0.2-1) mg/dl AST 24 (15-37) U/L ALT 29 (12-78) U/L Alkaline Phosphatase 56 (45-117) U/L Total Protein 6.6 (6.4-8.2) gm/dl Albumin 2.4 L (3.4-5.0) gm/dl Globulin 4.2 H (2.5-4.0) gm/dl Albumin/Globulin Ratio 0.6 L (0.9-2) TSH 0.637 (0.300-4.500) uIu/ml 04/27/21 04/26/21 04/26/21 Range/Units 05:54 20:40 17:14 WBC (4.8-10.8) K/uL RBC (4.7-6.1) M/uL Hgb (14.0-18.0) g/dL Hct (42-52) % MCV (80-100) fL MCH (25-34) pg MCHC (32-36) g/dL RDW Std Deviation (36.4-46.3) fL RDW Coeff of Dandy (11.5-14.5) % Plt Count (130-400) K/uL MPV (7.4-10.4) fL Immature Gran % (Auto) % Neut % (Auto) % Lymph % (Auto) % Howell % (Auto) % Eos % (Auto) % Baso % (Auto) % Neut # (Auto) (1.4-6.5) K/uL Lymph # (Auto) (1.2-3.4) K/uL Howell # (Auto) (0.11-0.59) K/uL Eos # (Auto) (0-0.5) K/uL Baso # (Auto) (0-0.2) K/uL Immature Gran # (Auto) (0.00-0.02) K/uL Sodium (136-145) mmol/L Potassium (3.5-5.1) mmol/L Chloride (98-107) mmol/L Carbon Dioxide (21-32) mmol/L Anion Gap (3-11) BUN (7-18) mg/dl Creatinine (0.6-1.4) mg/dl Est Cr Clr Drug Dosing ml/min Est GFR ( Amer) ml/min Est GFR (Non-Af Amer) ml/min BUN/Creatinine Ratio (10-20) Glucose (70-99) mg/dl POC Glucose 150 H 141 H 197 H (70-99) mg/dl Calcium (8.5-10.1) mg/dl Phosphorus (2.5-4.9) mg/dl Magnesium (1.8-2.4) mg/dl Total Bilirubin (0.2-1) mg/dl AST (15-37) U/L ALT (12-78) U/L Alkaline Phosphatase (45-117) U/L Total Protein (6.4-8.2) gm/dl Albumin (3.4-5.0) gm/dl Globulin (2.5-4.0) gm/dl Albumin/Globulin Ratio (0.9-2) TSH (0.300-4.500) uIu/ml Diagnostic Findings Duplex Scan Lower Extremity Artery 04/26/21 10:30 ULTRASOUND US arterial duplex LE BI CLINICAL HISTORY: PAD COMPARISON STUDY: January 11, 2012 FINDINGS: Real-time as well as Doppler evaluation of the arterial structures of the lower legs was performed. Heavy calcified plaques are again seen bilaterally. Increased velocity with triphasic flow is seen within common femoral and proximal aspect of the superficial femoral artery (peak systolic velocities measuring 181 cm/s within right common femoral artery) There is complete occlusion of the mid aspect of the right popliteal artery and reconstitution of the blood flow within calf arteries through collaterals which shows slow monophasic flow. Increase velocities are seen within left common femoral artery measuring 170 cm/s and show triphasic flow. Mild decrease in flow velocity seen within the proximal aspect of the femoral artery. Focal area of nonvisualization flow and possible occlusion is seen within distal aspect of the left femoral artery. Reconstitution of the flow is seen within left popliteal artery and show monophasic waveform. Flow is visualized within left posterior tibialis, left peroneal and left anterior tibialis artery which shows some slow monophasic flow. Monophasic waveform are visualized within left dorsalis pedis artery. IMPRESSION: 1. Complete occlusion of the mid aspect of the right popliteal artery with reconstitution of the flow within calf arteries via collaterals which shows slow monophasic flow. 2. Focal area of nonvisualization of the flow and possible occlusion within distal aspect of the left femoral artery. 3. Increased velocities within the right superior femoral artery and left common femoral artery likely due to stenosis. 4. Extensive calcified plaques within the posterior urias of bilateral lower extremities. 5. The rest of findings as above. Electronically signed by: Yue Iglesias DO 04/26/2021 2:31 PM PG Care Time/CCT Total # of Minutes Spent Total Time Spent with Patient: Total time spent is greater than 50% in coordination of care (as documented) at patient's floor/unit and/or counseling patient: Coding Level of Care Code 23695 Subseq Hosp Care Lvl 3 Diagnoses Osteomyelitis of right foot M86.9 Pain and swelling of right lower leg M79.661; M79.89 Wound of foot S91.309A Hyperlipidemia E78.5 Diabetes mellitus, type 2 E11.9
[2021-04-27] MEDS: COLLAGENASE OINT 30 GM TUBE TOP SCH (09:45)
[2021-04-27] MEDS: ASPIRIN 81 MG ECTAB PO SCH (09:45)
[2021-04-27] MEDS: cilostazoL 100 MG TAB PO SCH (09:45)
[2021-04-27] MEDS: GABAPENTIN 800 MG TAB PO SCH ×3 (09:45→20:05)
[2021-04-27 09:52] LABS: Albumin Level 2.4 gm/dl (3.4-5.0); BUN Creatinine Ratio 15.7 (10-20); Calcium 8.2 mg/dl (8.5-10.1); Creatinine Clr Calc Pharmacy 68.3 ml/min; Est GFR (African American) 66.9 ml/min; Est GFR (Non-African American) 57.7 ml/min; Phosphorus 3.2 mg/dl (2.5-4.9); Potassium 4.2 mmol/L (3.5-5.1)
[2021-04-27 10:02] LABS: Albumin Globulin Ratio 0.6 (0.9-2); Bilirubin,Total 0.2 mg/dl (0.2-1); Globulin 4.2 gm/dl (2.5-4.0); Magnesium 2.1 mg/dl (1.8-2.4); Thyroid Stimulating Hormone 0.637 uIu/ml (0.300-4.500); Total Protein 6.6 gm/dl (6.4-8.2)
[2021-04-27] MEDS ORDERED: SODIUM CHLORIDE 0.9% 500 ML IV SCH (11:15)
--- NOTE | 2021-04-27 11:55 | Podiatry Consultation ---
Date of Consultation April 27, 2021 Assessment & Plan (1) Osteomyelitis of right foot: Thad Mora is a 60 yo male with a PMHx of CKD, COPD, DM2, GERD, gout, HLD, HTN, and peripheral neuropathy admitted to the hospital 04/25/21 for worsening right foot pain and swelling with concerns of osteomyelitis and arterial insufficiency. - plan for 3rd metatarsal head resection/possible 3rd toe amputation with ulcer debridement for next week either inpatient or outpatient - will continue to be followed by [facility] - continue IV abx and wound care (2) Pain and swelling of right lower leg: (3) Wound of foot: (4) Hyperlipidemia: (5) Diabetes mellitus, type 2: History of Present Illness Reason for Consultation: right foot osteomyelitis 3rd metatarsal/diabetic foot ulcer in the setting of PAD Requesting Physician: Lizzie Chang Attending Physician: Abhishek Nuno MD History of Present Illness Patient is a pleasant 60 year old diabetic patient known to me, sent to ED from my office due to worsening ulcer of the right foot with arterial disease - patient was being seen in conjunction with his PCP at my office, he was on oral clinda, switched to IV clinda then adding cipro due to c and s growing enterococcus, patient continued to fail abx therapy, JONELLE were obtained and showed .51 on the right side giving concern for occlusion as reason that ulcer was not healing and po/IV ab therapy not helpful - patient also had some ischemic changes noted to the right 3rd toe at the office that were additionally concerning - patient had more in depth vascular studies showing the complete occlusion of the popliteal on the right side as well as disease on the left - at this point patient will have vascular intervention to improve/restore flow - if flow improved then I am planning on a right foot 3rd metatarsal head resection with possible 3rd toe amputation and ulcer debridement; patient may have this outpatient if he improves in terms of his kidneys and vascular supply to be d/c before planned procedure, it can be done outpatient by myself, if he does not stabilize then patient can remain in hospital and will plan to do it in patient if needed - I will be out of town - Sunday and will be covered by [facility] and surgeon, so if this needs to be done on a more urgent basis please consult [facility] ortho, PAs will continue to round on patient in my absence, I additionally discussed this with our PAs covering as well as his hospitalist and the patient himself - please continue wound care dressings to the right foot as ordered and continue to have patient off the right foot and continue IV abxs Allergies Allergy/AdvReac Type Severity Reaction Status Date / Time Penicillins Allergy Severe CHILD Verified 04/22/21 10:58 sulfamethoxazole Allergy Intermediate RASH Verified 04/22/21 10:58 trimethoprim Allergy Intermediate RASH Verified 04/22/21 10:58 Home Medications Medication Instructions Recorded Confirmed Type aspirin 81 mg chewable tablet 81 mg PO QAM 07/15/18 04/25/21 History cilostazol 100 mg tablet 100 mg PO DAILY 07/15/18 04/25/21 History gabapentin 800 mg tablet 800 mg PO TID 07/15/18 04/25/21 History metformin 1,000 mg tablet 1,000 mg PO BID 07/15/18 04/25/21 History pioglitazone 45 mg tablet (Actos) 45 mg PO QAM 07/15/18 04/25/21 History rosuvastatin 20 mg tablet (Crestor) 20 mg PO HS 07/15/18 04/25/21 History clindamycin HCl 150 mg capsule 450 mg PO Q8 04/14/21 04/25/21 History blood sugar diagnostic (OneTouch #50 ea 04/15/21 04/25/21 Rx Verio test strips) blood-glucose meter (OneTouch #1 ea 04/15/21 04/25/21 Rx Verio Meter) glucagon 1 mg solution for 1 mg IM ONCE #1 ea 04/15/21 04/25/21 Rx injection (Glucagon Emergency Kit) lancets 30 gauge (OneTouch Delica #100 ea 04/15/21 04/25/21 Rx Lancets) collagenase clostridium histo. 250 1 applic TOPICAL DAILY 14 Days #30 04/22/21 04/25/21 Rx unit/gram topical ointment (Santyl) g lisinopril 5 mg tablet 5 mg PO .QHS tab 04/22/21 04/25/21 History metoprolol succinate 50 mg 50 mg PO QPM 04/22/21 04/25/21 History tablet,extended release 24 hr gentamicin 0.1 % topical ointment 1 applic TOPICAL DAILY 14 Days #30 07/26/21 07/26/21 Rx g Patient History Medical History Acute hyponatremia MAGDIEL (acute kidney injury) Chronic obstructive pulmonary disease Diabetes mellitus, type 2 Diabetic ulcer of right foot Foot fracture, right GERD (gastroesophageal reflux disease) Gout Hyperlipidemia Hypertension Hypoglycemia Hypoglycemia Osteoarthritis Osteomyelitis of right foot Pain and swelling of right lower leg Peripheral neuropathy Rigors Scoliosis Tobacco abuse Wound of foot Surgical History History of carpal tunnel release RT History of cataract surgery LEFT History of colonoscopy History of esophagogastroduodenoscopy (EGD) History of hand surgery RT TENDON RELEASE History of repair of rotator cuff RT X 2 History of tooth extraction Family History Mother Family history of diabetes mellitus Social History Smoking Status: Current every day smoker Tobacco Type: Cigarettes Age Started Using Tobacco: 16; packs per day: 1; Cigarettes Per Day: 20-40; Second Hand Exposure: No; Do You Dip or Chew Tobacco: No; Tobacco Cessation Education Requested by Patient: No Hx Alcohol Use: No Hx Substance Use: No Preferred Language: Iraqi Communication Ability: Effective Radial Arm Saw Operator Required: No Beliefs That Will Affect Care: None marital status: Current Living Situation: Family current occupational status: employed 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 3rd toe still with purple/blue discoloration although this is improved from presentation with me in office - pedal pulses non palpable - erythema extending from 3rd toe,2nd toes, 4th toe proximally to the ankle - CT scan showing developing osteomyelitis of the 3rd metatarsal head and concern for the vascular status of the 3rd toe remains Results & Data ([facility]) Vital Signs (Past 12 Hours) Vital Signs Temp Pulse Resp BP Pulse Ox 04/27/21 07:26 37.1 C 79 18 124/74 95
[2021-04-27] MEDS ORDERED: hydrALAZINE HCL 20 MG/ML VIAL IV PRN (12:50)
[2021-04-27] MEDS ORDERED: fentaNYL citrate 100 MCG/2 ML VIAL ONE ×2 (14:00→14:28)
[2021-04-27] MEDS ORDERED: niCARdipine HCL INJ 2.5 MG/ML 10 ML AMP ONE (14:00)
[2021-04-27] MEDS ORDERED: MIDAZOLAM HCL 5 MG/ML 1 ML VIAL ONE (14:00)
[2021-04-27] MEDS ORDERED: HEPARIN (PORCINE) 1000 UNIT/ML 10 ML (CATH LAB USE ONLY) ONE (14:01)
[2021-04-27] MEDS ORDERED: LIDOCAINE 1% LOCAL 20 ML VIAL ONE (14:19)
[2021-04-27] MEDS ORDERED: NITROGLYCERIN/D5W 100MCG/ML 20ML SYR ONE (14:41)
[2021-04-27] MEDS ORDERED: LIDOCAINE/EPINEPHRINE 1% 20 ML VIAL ONE (14:56)
--- NOTE | 2021-04-27 15:38 | Pre Anesthesia Assessment ---
Date of Service April 27, 2021 Pre Sedation Assessment Vital Signs Temp Pulse Pulse Pulse Resp BP BP 04/27/21 15:30 80 16 150/75 H 04/27/21 15:15 95 H 16 124/88 04/27/21 15:00 82 16 133/79 04/27/21 12:19 88 20 160/83 H 04/27/21 07:26 98.8 F 79 18 124/74 04/26/21 21:58 98.1 F 85 18 134/74 04/26/21 20:45 93 H 148/74 H Pulse Ox 04/27/21 15:30 94 04/27/21 15:15 94 04/27/21 15:00 94 04/27/21 12:19 96 04/27/21 07:26 95 04/26/21 21:58 94 04/26/21 20:45 Cardiovascular RRR, no murmur, no edema Respiratory normal respiratory effort, lungs clear to auscultation Pre-Sedation Airway Assessment Smoking Status: Current every day smoker Hx Sleep Apnea: No Short, Thick Neck: No Thyromental Distance: > or= 3.5 Finger Breadths Oral Cavity: + WNL Mallampati Class: II ASA: ASA2 NPO Status Date of Last Intake of Fluids: 04/26/21 Time of Last Intake of Fluids: 19:00 Date of Last Intake of Solid Food: 04/26/21 Time of Last Intake of Solid Foods: 19:00 Procedure Planning Contraindications for Sedation: none Current Medications Reviewed: Yes Notes The planned sedation has been discussed with the patient. Informed Consent was obtained. I have identified the patient, determined the appropriateness of sedation and have assessed the patient immediately prior to the procedure. All medicine(s) and interventions are by my order.
--- NOTE | 2021-04-27 15:39 | Post Anesthesia Assessment ---
Date of Service April 27, 2021 Post Sedation Assessment Vital Signs Temp Pulse Pulse Pulse Resp BP BP 04/27/21 15:30 80 16 150/75 H 04/27/21 15:15 95 H 16 124/88 04/27/21 15:00 82 16 133/79 04/27/21 12:19 88 20 160/83 H 04/27/21 07:26 98.8 F 79 18 124/74 04/26/21 21:58 98.1 F 85 18 134/74 04/26/21 20:45 93 H 148/74 H Pulse Ox 04/27/21 15:30 94 04/27/21 15:15 94 04/27/21 15:00 94 04/27/21 12:19 96 04/27/21 07:26 95 04/26/21 21:58 94 04/26/21 20:45 Recovery Score Activity: Moves 4 extremities Respiration: Deep Breath/Cough Circulation: +/-20% PreAnes Value Consciousness: Fully Awake Oxygen Saturation: > 92% On Room Air Post Anesthesia Score: 10 Discharge Sedation Level of Care: Fast Track Phase II Post Sedation Plan On clinical assessment, the patient appears to have tolerated the sedation without complications. Patient is recovering as anticipated. Patient will continue to be monitored by nursing and may be discharged when sedation discharge criteria are met per below protocol. Upon Completions of procedure up to 15 minutes continue every 5 minute vital signs and the P.A.R. score; then discharge to a Phase I or Fast Track to Phase II per the following guidelines: * Discharge Patient to appropriate Phase II area if PAR is 8 or greater or return to pre- procedure baseline. The post - procedure orders will be as directed. * If PAR score is less than 8 or not return to pre-procedure baseline then patient will follow Phase I monitoring till PAR is reached for Phase II. The Phase I may be done in procedure room or may call to secure a Phase I area. * If naloxone or flumazenil are used for reversal, hold in Phase I for continued monitoring from when last reversal dose was given for a minimum of 60 minutes or longer pending the nurse and/or physician discretion of patient condition before discharge to Phase II. Please call the Sedation Physician to re-evaluate and complete post-note for discharge to Phase II area. Do NOT discharge from procedure sedation or Phase 1 until post- sedation evaluation note is complete by procedure /sedation MD Sedation Discharge Instructions to be given to the patient at discharge to home.
--- NOTE | 2021-04-27 15:45 | Post Operative Brief Note ---
PG Immediate Post Op with CF Date of Surgery April 27, 2021 Pre & Post Diagnosis PAD I identified the patient and participated in the time-out.: Yes Procedure Operation Date: 04/27/21 12:00 Actual Procedures p Cineradiography w/Routine Exam - Fabian Poe MD Surgeon Solomon Poe MD Wine Blender Deibler Estimated Blood Loss 10 Findings See Below Heavily calcified, diffuse SFA disease prior to distal SFA occlusion. Reconstitution in distal popliteal. 3 vessel runoff to foot. Drains Other Anesthesia Type RN Sedation Complications none Overlapping Procedure I was present for: the critical portions of procedure. I was immediately available: during the entire case. Back up surgeon: was not required during procedure.
[2021-04-27] MEDS: oxyCODONE HCL IR 5 MG TAB (IMMEDIATE RELEASE) PO PRN ×2 (17:06→22:10)
[2021-04-27] MEDS: MoRPHine SULFATE 2 MG/ML CARP IV PRN (17:07)
[2021-04-27] MEDS: POLYETHYLENE (MIRALAX) 17 GM PACK PO SCH ×2 (17:11→20:06)
[2021-04-27] MEDS: DOCUSATE SODIUM/SENNA 50/8.6MG TAB PO SCH (17:11)
--- NOTE | 2021-04-27 19:56 | Billing Data ---
Date of Service April 27, 2021 Coding Level of Care Code 55081 Initial Inpt Care Lvl 3
[2021-04-27] MEDS: METOPROLOL SUCC 50MG EXT REL TAB PO SCH (20:05)
[2021-04-27] MEDS: ROSUVASTATIN CALCIUM 20 MG TAB PO SCH (20:06)
[2021-04-27] MEDS: cefTRIAXone SODIUM 2,000 MG in DEXTROSE 5% 50 ML IV SCH (22:06)
--- NOTE | 2021-04-28 00:32 | Endovascular Procedure Note ---
PG Endovascular Procedure Rpt Pre & Post Diagnosis Peripheral arterial disease I identified the patient and participated in the time-out.: Yes Procedure Operation Date: 04/27/21 12:00 Actual Procedures p Cineradiography w/Routine Exam - Fabian Poe MD s Ultrasound Vascular Access - Fabian Poe MD p Angio Extremity Unilateral - MD dalia Hanks SC Select Cath ALEP 3rd Order - Fabian Poe MD Surgeon Solomon Poe MD Inventory Associate And Driver Deibler Estimated Blood Loss 10 Findings See Below Abdominal aorta--heavily calcified, no significant aneurysmal or stenotic disease Right lower extremity-- -Common iliac calcified, with 30 to 40% distal stenosis External iliac, internal iliac widely patent. -CFAcalcified, 30% mid segment disease. -Profunda widely patent -SFA severe, dense calcification throughout SFA with severe diffuse disease until distal SFA occlusion. -Popliteal heavily calcified, reconstitutes in distal segment just before takeoff of MELY. -MELY moderate proximal disease, partially fills via collaterals. Tapers prior to reaching the foot. -FORENSIC SCIENCE EXAMINER widely patent into the foot and gives off plantar artery which extends to ulcer bed. Peroneal patent proximally Fluids 50 Anesthesia Type RN Sedation Radiation Exposure (mGv) Radiation (mGy): 399 Contrast Contrast: 50 Complications none Description of Procedure Left REGISTERED NURSES obtained under ultrasound guidance, short 5Fr sheath placed Abdominal aortogram and proximal right lower extremity angiogram performed with RIM catheter. 6 Fr 65 cm destination sheath placed from left REGISTERED NURSES to right common iliac. Selective angiography with quick cross catheter placed into ostial right SFA. Contrast used: 50 Moderate sedation: [id number] Access closure: StarClose Summary: 1. Right lower extremity --30-40% distal common iliac, 30% REGISTERED NURSES, extreme/densely calcified SFA with severe diffuse disease before 100% distal occlusion. Reconstitution of distal popliteal with patent proximal MELY/FORENSIC SCIENCE EXAMINER/peroneal. FORENSIC SCIENCE EXAMINER widely patent into the foot and gives off plantar artery which extends to ulcer bed. Recommendations: Patient with extremely calcified SFA/popliteal artery with long occlusion. Endovascular intervention would be complex and high risk. Recommend evaluation with vascular surgery for possible femoropopliteal bypass. I attest to the content of the Intraoperative Record and any orders documented therein. Any exceptions are noted below. Vascular Charges Angiography/Venography Procedure 1: Angiography/Venography charges: [id number] Aortography, abd + b/l iliofem LE, catheter, radiological S&I Procedure 2: Angiography/Venography charges: [id number] Initial 3rd order or selective abd, pelvic, or LE branch Additional Services Procedure 1: Additional Services Charges: 03989 Ultrasound guidance - vascular access Procedure 2: Additional Services Charges: 52750 Moderate sedation initial 15 min Procedure 3: Additional Services Charges: 87913 Moderate sedation, each additional 15 min
[2021-04-28] MEDS: INSULIN ASPART 100 UNITS/ML 3 ML PEN SC SCH ×4 (08:06→20:28)
--- NOTE | 2021-04-28 08:12 | Hospitalist Progress Note ---
Date of Service April 28, 2021 Assessment & Plan (1) Osteomyelitis of right foot: Plan: Thad Mora is a 60 yo male with a PMHx of CKD, COPD, DM2, GERD, gout, HLD, HTN, and peripheral neuropathy admitted to the hospital 04/25/21 for worsening right foot pain and swelling with concerns of osteomyelitis and arterial insufficiency. 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 3.0 x 3.6 cm cutaneous ulceration of the plantar foot centered at the level of the third and fourth metatarsophalangeal joints. * 2. Equivocal osseous erosion involves the plantar aspect of the third metatarsal head. Findings should be correlated clinically to exclude developing osteomyelitis. * 3. Subcutaneous edema suggestive of cellulitis. No abscess. * 4. Subacute to chronic appearing ununited fracture re-demonstrated involving the base of the fifth metatarsal. Recent cx with Citrobacter braakii (of note per discussion with Dr. Torrez office cx after with Klebsiella/Citrobacter Transitioned to ceftriaxone 1g q24h for once daily dosing on admission (dose of Cefepime in ER, 3rd day of Ceftriaxone today). Patient does have a penicillin allergy hx but noted to receive cefazolin in 2017 without adverse reaction Temp 38.4C on admission Blood cultures pending Fever 38.4C afternoon 04/25 --> Based on temp 38.4C on 04/25 and low grade temp yesterday and slight elevation in WBC/neutrophils and high chance of resistance of organisms based on discussion with pharmacy, patient switched to Ertapenem. Will be 1x/day dosing for d/c. Already set up with infusion company from prior. Has PICC LUE placed last sunday. ID consult placed but unable to be completed today -- hopefully to be done tomorrow, but would send on Ertapenem if unable and will need close f/u with wound/podiatry Consulted wound care nurse Podiatry consulted -- follows with Dr Torrez. Concerns for arterial thrombus. -->JONELLE: Right 0.57, left 0.68. Ortho covering while out of town Venous Doppler NEGATIVE for DVT Vascular surgery consulted, Dr Poe * Arterial duplex abnormal -- R>L (affected side) * Impression: * 1. Complete occlusion of the mid aspect of the right popliteal artery with reconstitution of the flow within calf arteries via collaterals which shows slow monophasic flow. * 2. Focal area of nonvisualization of the flow and possible occlusion within distal aspect of the left femoral artery. * 3. Increased velocities within the right superior femoral artery and left common femoral artery likely due to stenosis. * 4. Extensive calcified plaques within the posterior urias of bilateral lower extremities. Unable to stent during angio yesterday, but spoke with Dr. Poe who felt chronic in nature with good collaterals and could potentially remain on IV abx until Dr. Rubalcava back in [facility] Consulted Jonathan Young -- he is going to fit and bring in CAM boot for patient to wear in the meantime. He had appt with pt tomorrow already scheduled. Ortho to contact Dr. Anastasia Rosenthal about patients wish to avoid amputation. Discussed longer term abx may be option x 6 weeks but source control preferred. Will await ID consultation and eval after vascular back in [facility] for fem-pop bypass by Dr. Rubalcava. Continue to monitor (2) Acute osteomyelitis of right foot: Plan: suspected 3rd digit, 2nd to severe PAD IV abx, podiatry/ortho on consult Vascular unable to stent yesterday but felt ok to wait for Dr Rubalcava return given chronicity Has PICC line LUE placed last Sunday, already established with IV company. 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 Unfortunately angiogram without ability for stent placement based on complex calficiations and will require fem-pop bypass as above. Dr Poe felt ok for patient to wait until seen by Dr. Rubalcava vs offer to see if anyone in [place]/other able to see sooner. Patient agreed to wait for Dr. Rubalcava Pain control Continue home cilostazol, ASA, and gabapentin (could consider increasing gabapentin) (4) Acute kidney injury: Plan: In setting of infection/DM medications Cr 1.9 on admission, was given 1L NSS Lisinopril held and Cr improved to baseline. Stable on repeat and lisinopril resumed Avoid nephrotoxic agents, renally dose medications when possible Continue to monitor BMP (5) Pain and swelling of right lower leg: Plan: secondary to infection Venous Dopppler negative for DVT (6) Diabetes mellitus, type 2: Plan: Last A1c 7.0 Home oral agents metformin and pioglitazone held on admission ISS ordered --> BSGs acceptable Hypoglycemia last admission. C-peptide elevated 13.8, suggesting oversecretion by pancreas. Continue to monitor -- have been acceptable, no hypoglycemia May need to consider further work-up for possible insulinoma if recurs, but could have been accumulation of his glimepiride (was on glimepiride, pioglitazone and metformin 1000mg BID AIR[employer] REPA[employer] MECHANIC) May need to consider basal insulin (7) Wound of foot: Plan: f/u wound care/podiatry at d/c (8) Hyperlipidemia: Plan: Continue home rosuvastatin (9) Hypertension: Plan: Chronic. Lisinopril held for MAGDIEL on admission and again after angio until Cr ensures to be stable Stable on repeat and resumed BP currently 146/75 Continue usual metoprolol Hydralazine prn Continue to monitor (10) Tobacco abuse: Plan: Continued counseling. Did not want nicotine patch/gum. Highly recommended abstaining from tobacco given severe PAD (11) Diabetic foot ulcer: Plan: f/u wound care orthotics consulted -- pt had appt tomorrow to bring in CAM boot tomorrow, fitting tonight Plan: continued inpatient stay, ID consult pending possible d/c tomorrow on Ertapenem with f/u with podiatry, wound care, vascular surgery Admission and Anticipated Discharge Date Admission Date: April 25, 2021 Subjective Patient evaluated this morning. seen by ortho. Initially thought pt to be transferred out but discussed conversation with vascular Dr Poe and patient with chronic disease and good collaterals and could wait until Dr. Rubalcava back in town for fem-pop bypass. Patient would really like to avoid amputation, and would like to continue on IV abx to see if improvements made, although he does know that without taoist of blood flow, this may never heal without surgery. Will need wound follow up cancelled and rescheduled for tomorrow. Was to get a new boot -- will place consult for orthotics to see if able to fit while inpatient. Waiting to get ID input but discussed switching to Cefepime for abx at d/c given fevers on Rocephin, however discussion with pharmacy with recs for Ertapenem this afternoon-- changed. Review of Systems Review of Systems: All systems reviewed & are unremarkable except as noted in HPI & below Physical Exam Physical Exam: GENERAL: No acute distress. Well developed and well nourished. Laying in bed S: PERRLA. EOMI. Anicteric sclerae. HENT: Moist mucous membranes slightly dry. No pharyngeal erythema or exudates. RESPIRATORY: Clear to auscultation bilaterally. No wheezing, rales, or rhonchi. CARDIOVASCULAR: Regular rate and rhythm. + murmur. no /g ABDOMEN: Soft, non-tender and non-distended. Normal bowel sounds. EXTREMITIES: RLE with 1+ edema to mid-correa. Moderate tenderness to palpation throughout right calf and foot. Full active range of motion of ankle and all toes. No edema or TTP throughout LLE. SKIN: Warm, dry. Ulceration 3.5 x 2 x 2cm to plantar aspect of right foot with multiple stages of healing; there is purulent discharge that can be expressed from the central aspect of the lesion TTP. odorous discharge. decreased sensation to light touch. calf tenderness. cap refill >2 seconds ecchymosis to 3rd digit within markings (improving slowly) PSYCHIATRIC: Cooperative. Appropriate mood and affect. Results & Data Results & Data ([facility]) Vital Signs (Past 12 Hours) Vital Signs Temp Pulse Pulse Resp BP Pulse Ox 04/28/21 07:45 37.3 C 87 18 128/85 93 04/28/21 07:23 78 04/28/21 03:12 37.3 C 89 20 131/86 91 04/28/21 00:07 86 04/27/21 23:02 37.8 C H 81 20 161/85 H 93 04/27/21 20:51 37.3 C 86 20 165/80 H 93 Laboratory Results 04/28/21 04/27/21 04/27/21 Range/Units 07:14 23:50 20:04 WBC (4.8-10.8) K/uL RBC (4.7-6.1) M/uL Hgb (14.0-18.0) g/dL Hct (42-52) % MCV (80-100) fL MCH (25-34) pg MCHC (32-36) g/dL RDW Std Deviation (36.4-46.3) fL RDW Coeff of Dandy (11.5-14.5) % Plt Count (130-400) K/uL MPV (7.4-10.4) fL Immature Gran % (Auto) % Neut % (Auto) % Lymph % (Auto) % [place] % (Auto) % Eos % (Auto) % Baso % (Auto) % Neut # (Auto) (1.4-6.5) K/uL Lymph # (Auto) (1.2-3.4) K/uL [place] # (Auto) (0.11-0.59) K/uL Eos # (Auto) (0-0.5) K/uL Baso # (Auto) (0-0.2) K/uL Immature Gran # (Auto) (0.00-0.02) K/uL Sodium (136-145) mmol/L Potassium (3.5-5.1) mmol/L Chloride (98-107) mmol/L Carbon Dioxide (21-32) mmol/L Anion Gap (3-11) BUN (7-18) mg/dl Creatinine (0.6-1.4) mg/dl Est Cr Clr Drug Dosing ml/min Est GFR ( Amer) ml/min Est GFR (Non-Af Amer) ml/min BUN/Creatinine Ratio (10-20) Glucose (70-99) mg/dl POC Glucose 138 H 168 H 183 H (70-99) mg/dl Calcium (8.5-10.1) mg/dl Phosphorus (2.5-4.9) mg/dl Magnesium (1.8-2.4) mg/dl Total Bilirubin (0.2-1) mg/dl AST (15-37) U/L ALT (12-78) U/L Alkaline Phosphatase (45-117) U/L Total Protein (6.4-8.2) gm/dl Albumin (3.4-5.0) gm/dl Globulin (2.5-4.0) gm/dl Albumin/Globulin Ratio (0.9-2) TSH (0.300-4.500) uIu/ml 04/27/21 04/27/21 04/27/21 Range/Units 16:49 11:56 07:47 WBC (4.8-10.8) K/uL RBC (4.7-6.1) M/uL Hgb (14.0-18.0) g/dL Hct (42-52) % MCV (80-100) fL MCH (25-34) pg MCHC (32-36) g/dL RDW Std Deviation (36.4-46.3) fL RDW Coeff of Dandy (11.5-14.5) % Plt Count (130-400) K/uL MPV (7.4-10.4) fL Immature Gran % (Auto) % Neut % (Auto) % Lymph % (Auto) % [place] % (Auto) % Eos % (Auto) % Baso % (Auto) % Neut # (Auto) (1.4-6.5) K/uL Lymph # (Auto) (1.2-3.4) K/uL [place] # (Auto) (0.11-0.59) K/uL Eos # (Auto) (0-0.5) K/uL Baso # (Auto) (0-0.2) K/uL Immature Gran # (Auto) (0.00-0.02) K/uL Sodium 135 L (136-145) mmol/L Potassium 4.2 (3.5-5.1) mmol/L Chloride 106 (98-107) mmol/L Carbon Dioxide 25 (21-32) mmol/L Anion Gap 4.0 (3-11) BUN 21 H (7-18) mg/dl Creatinine 1.33 (0.6-1.4) mg/dl Est Cr Clr Drug Dosing 68.3 ml/min Est GFR ( Amer) 66.9 ml/min Est GFR (Non-Af Amer) 57.7 ml/min BUN/Creatinine Ratio 15.7 (10-20) Glucose 142 H (70-99) mg/dl POC Glucose 171 H 146 H (70-99) mg/dl Calcium 8.2 L (8.5-10.1) mg/dl Phosphorus 3.2 (2.5-4.9) mg/dl Magnesium 2.1 (1.8-2.4) mg/dl Total Bilirubin 0.2 (0.2-1) mg/dl AST 24 (15-37) U/L ALT 29 (12-78) U/L Alkaline Phosphatase 56 (45-117) U/L Total Protein 6.6 (6.4-8.2) gm/dl Albumin 2.4 L (3.4-5.0) gm/dl Globulin 4.2 H (2.5-4.0) gm/dl Albumin/Globulin Ratio 0.6 L (0.9-2) TSH 0.637 (0.300-4.500) uIu/ml 04/27/21 Range/Units 07:47 WBC 8.90 (4.8-10.8) K/uL RBC 3.36 L (4.7-6.1) M/uL Hgb 10.8 L (14.0-18.0) g/dL Hct 31.7 L (42-52) % MCV 94.3 (80-100) fL MCH 32.1 (25-34) pg MCHC 34.1 (32-36) g/dL RDW Std Deviation 44.4 (36.4-46.3) fL RDW Coeff of Dandy 12.8 (11.5-14.5) % Plt Count 301 (130-400) K/uL MPV 9.8 (7.4-10.4) fL Immature Gran % (Auto) 0.2 % Neut % (Auto) 73.7 % Lymph % (Auto) 15.5 % [place] % (Auto) 7.9 % Eos % (Auto) 2.6 % Baso % (Auto) 0.1 % Neut # (Auto) 6.56 H (1.4-6.5) K/uL Lymph # (Auto) 1.38 (1.2-3.4) K/uL [place] # (Auto) 0.70 H (0.11-0.59) K/uL Eos # (Auto) 0.23 (0-0.5) K/uL Baso # (Auto) 0.01 (0-0.2) K/uL Immature Gran # (Auto) 0.02 (0.00-0.02) K/uL Sodium (136-145) mmol/L Potassium (3.5-5.1) mmol/L Chloride (98-107) mmol/L Carbon Dioxide (21-32) mmol/L Anion Gap (3-11) BUN (7-18) mg/dl Creatinine (0.6-1.4) mg/dl Est Cr Clr Drug Dosing ml/min Est GFR ( Amer) ml/min Est GFR (Non-Af Amer) ml/min BUN/Creatinine Ratio (10-20) Glucose (70-99) mg/dl POC Glucose (70-99) mg/dl Calcium (8.5-10.1) mg/dl Phosphorus (2.5-4.9) mg/dl Magnesium (1.8-2.4) mg/dl Total Bilirubin (0.2-1) mg/dl AST (15-37) U/L ALT (12-78) U/L Alkaline Phosphatase (45-117) U/L Total Protein (6.4-8.2) gm/dl Albumin (3.4-5.0) gm/dl Globulin (2.5-4.0) gm/dl Albumin/Globulin Ratio (0.9-2) TSH (0.300-4.500) uIu/ml PG Care Time/CCT Total # of Minutes Spent Total Time Spent with Patient: Total time spent is greater than 50% in coordin ation of care (as documented) at patient's floor/unit and/or counseling patient: Coding Level of Care Code 15356 Subseq Hosp Care Lvl 3 Diagnoses Osteomyelitis of right foot M86.9 Pain and swelling of right lower leg M79.661; M79.89 Wound of foot S91.309A Hyperlipidemia E78.5 Diabetes mellitus, type 2 E11.9 Hypertension I10 Tobacco abuse Z72.0 Acute osteomyelitis of right foot M86.171 Diabetic foot ulcer E13.621; L97.419 Diabetes mellitus type: other specified (including JONNATHAN) Diabetic foot ulcer location: midfoot Laterality: right Non-pressure ulcer stage: unspecified non-pressure ulcer stage PAD (peripheral artery disease) I73.9 Acute kidney injury N17.9 (1) Diabetic foot ulcer Diabetes mellitus type: other specified (including JONNATHAN) Diabetic foot ulcer location: midfoot Laterality: right Non-pressure ulcer stage: unspecified non- pressure ulcer stage Qualified Code(s): E13.621 - Other specified diabetes mellitus with foot ulcer; L97.419 - Non-pressure chronic ulcer of right heel and midfoot with unspecified severity
[2021-04-28] MEDS: MoRPHine SULFATE 2 MG/ML CARP IV PRN ×4 (08:18→20:17)
[2021-04-28] MEDS: oxyCODONE HCL IR 5 MG TAB (IMMEDIATE RELEASE) PO PRN ×2 (08:18→13:24)
[2021-04-28] MEDS: ASPIRIN 81 MG ECTAB PO SCH (08:19)
[2021-04-28] MEDS: cilostazoL 100 MG TAB PO SCH (08:19)
[2021-04-28] MEDS: COLLAGENASE OINT 30 GM TUBE TOP SCH (08:19)
[2021-04-28] MEDS: POLYETHYLENE (MIRALAX) 17 GM PACK PO SCH ×2 (08:20→20:16)
[2021-04-28] MEDS: DOCUSATE SODIUM/SENNA 50/8.6MG TAB PO SCH (08:20)
[2021-04-28] MEDS: GABAPENTIN 800 MG TAB PO SCH ×3 (08:20→20:14)
--- NOTE | 2021-04-28 08:53 | Pharmacy Report ---
Pharmacy Glycemic Short Note 2 - Date of Service April 28, 2021 - Glycemic Short BSG Results (Last 24 hours): 04/27/21 04/27/21 04/27/21 07:47 11:56 16:49 Glucose 142 H POC Glucose 146 H 171 H 04/27/21 04/27/21 04/28/21 20:04 23:50 07:14 Glucose POC Glucose 183 H 168 H 138 H OUTPATIENT ANTIDIABETIC REGIMEN: * Metformin 1000 mg PO BIDM * Pioglitazone 45 mg PO qAM * HbA1c: 7% (04/15/21) ASSESSMENT: * DM is a 60 year old male admitted on 04/25/21 with worsening right foot pain/swelling * CT concerning for developing osteomyelitis * Receiving IV ceftriaxone 2 g q24h (Citrobacter braakii in right foot culture) * Per podiatry note, plan is for 3rd metatarsal head resection/possible 3rd toe amputation * Pharmacy consulted for glycemic management on 04/26/21 - utilizing SC bolus insulin only at this time * BSGs yesterday of 150, 146, 171, and 183 mg/dL - receiving 10 units of SC bolus * Fasting BSG of 138 mg/dL - will add basal today PLAN FOR INPATIENT GLYCEMIC CONTROL: * Hold outpatient oral diabetes medications * Basal insulin - add basal * Lantus 10 units SQ daily * Lantus 0-10 units SC HS * Bolus insulin - tighten * NovoLog per scale ACHS or Q6hrs while NPO * Goal Range: Low 110 mg/dL - High 140 mg/dL * Correction Factor: 20 mg/dL/unit * Nutritional / Prandial insulin per carb ratio of 1 unit per 7 grams CHO consumed PLAN FOR DISCHARGE: * Goal HbA1c for this patient should be less than 7%, currently at 7% * Given right foot infection, improving glycemic controls certainly seems appropriate * Given PMH of CKD, consider addition of empagliflozin (Jardiance) 10 mg PO daily, as evidence for SGLT2i reducing CKD progression * Continue metformin and pioglitazone
[2021-04-28 09:22] LABS: Basophils # (auto) 0.02 K/uL (0-0.2); Basophils % (auto) 0.2 %; Hematocrit (blood only) 32.1 % (42-52); Hemoglobin 10.9 g/dL (14.0-18.0); Immature Granulocytes # (auto) 0.02 K/uL (0.00-0.02); Immature Granulocytes % (auto) 0.2 %; Lymphocytes # (auto) 1.26 K/uL (1.2-3.4); Lymphocytes % (auto) 12.8 %; Mean Corpuscular Hemoglobin 31.5 pg (25-34); Mean Corpuscular Volume 92.8 fL (80-100); Mean Platelet Volume 9.4 fL (7.4-10.4); Monocytes # (auto) 0.72 K/uL (0.11-0.59); Monocytes % (auto) 7.3 %; Neutrophils % (auto) 77.5 %; Platelet Count 353 K/uL (130-400); RDW Coefficient of Variation 12.8 % (11.5-14.5); RDW Standard Deviation 43.6 fL (36.4-46.3); Red Blood Count 3.46 M/uL (4.7-6.1); White Blood Count 9.82 K/uL (4.8-10.8)
[2021-04-28 10:00] LABS: Albumin Level 2.6 gm/dl (3.4-5.0); Calcium 8.6 mg/dl (8.5-10.1); Creatinine Clr Calc Pharmacy 67.4 ml/min; Est GFR (African American) 65.1 ml/min; Est GFR (Non-African American) 56.2 ml/min; Potassium 4.3 mmol/L (3.5-5.1)
[2021-04-28 10:02] LABS: Albumin Globulin Ratio 0.5 (0.9-2); Bilirubin,Total 0.3 mg/dl (0.2-1); Globulin 4.9 gm/dl (2.5-4.0); Total Protein 7.5 gm/dl (6.4-8.2)
[2021-04-28] MEDS: INSULIN GLARGINE SOLOSTAR 100 UNITS/ML 3 ML PEN SC SCH (10:06)
[2021-04-28] MEDS ORDERED: CEFEPIME 1,000 MG in SYRINGE 0 ML IV SCH (11:45)
--- NOTE | 2021-04-28 12:35 | Orthopedic Progress Note ---
Date of Service April 28, 2021 Assessment & Plan (1) Acute osteomyelitis of right foot: Plan: Patient was seen in his room this morning. I did speak with hospitalist service. Initially, the patient was thought to be going to a tertiary care facility for a vascular surgery. As his vascular condition is chronic, it is thought that he can wait for Dr. Rubalcava to address this in mid May. As such, patient will require continued antibiotics for his infection. In speaking with the patient, he would prefer not to have his toe or midfoot amputated. I will forward this information to Dr. Torrez. He may follow-up in the office upon discharge from the hospital. Continue appropriate antibiotics with spectrum coverage. Continue to keep the wound bandaged and clean. Patient states he has an appointment tomorrow at the wound care center at 10 AM. He would like to keep that appointment. I think this is reasonable if he is discharged today. Call the office with any other concerns. Admission and Anticipated Discharge Date Admission Date: April 25, 2021 Supervising Physician Co-Signing Physician Notes not my patient/this Dr Torrez's patient Subjective Patient was seen in his room this morning. He states his foot is sore, but he otherwise feels fine. He is anxious to go home. Denies any changes. No other complaints. He did have a fever earlier this morning. It was low-grade. Patient is currently receiving antibiotics. Review of Systems Review of Systems: Unchanged from yesterday. Physical Exam Physical Exam: Patient's foot remains bandaged. The plantar wound remains open. Motor function of the toes remains. Results & Data ([facility]) Vital Signs (Past 12 Hours) Vital Signs Temp Pulse Pulse Resp BP Pulse Ox 04/28/21 11:52 37.1 C 82 18 173/85 H 96 04/28/21 07:45 37.3 C 87 18 128/85 93 04/28/21 07:23 78 04/28/21 03:12 37.3 C 89 20 131/86 91
[2021-04-28] MEDS: ERTAPENEM SODIUM 1,000 MG in SODIUM CHLORIDE 0.9% 50 ML IV SCH (13:14)
[2021-04-28] MEDS: FAMOTIDINE 20 MG in SYRINGE 3 ML IV SCH (20:13)
[2021-04-28] MEDS: METOPROLOL SUCC 50MG EXT REL TAB PO SCH (20:15)
[2021-04-28] MEDS: ROSUVASTATIN CALCIUM 20 MG TAB PO SCH (20:16)
[2021-04-28] MEDS ORDERED: INSULIN GLARGINE SOLOSTAR 100 UNITS/ML 3 ML PEN SC SCH (21:00)
[2021-04-28] MEDS: lisinopril 5 MG TAB PO SCH (21:55)
[2021-04-29] MEDS: oxyCODONE HCL IR 5 MG TAB (IMMEDIATE RELEASE) PO PRN ×2 (01:05→16:34)
[2021-04-29 05:33] LABS: Basophils # (auto) 0.03 K/uL (0-0.2); Basophils % (auto) 0.3 %; Eosinophils # (auto) 0.22 K/uL (0-0.5); Eosinophils % (auto) 2.2 %; Hematocrit (blood only) 29.7 % (42-52); Hemoglobin 10.1 g/dL (14.0-18.0); Immature Granulocytes # (auto) 0.03 K/uL (0.00-0.02); Immature Granulocytes % (auto) 0.3 %; Lymphocytes # (auto) 1.68 K/uL (1.2-3.4); Lymphocytes % (auto) 17.1 %; Mean Corpuscular Hemoglobin 32.2 pg (25-34); Mean Corpuscular Volume 94.6 fL (80-100); Monocytes # (auto) 0.96 K/uL (0.11-0.59); Monocytes % (auto) 9.8 %; Neutrophils # (auto) 6.92 K/uL (1.4-6.5); Neutrophils % (auto) 70.3 %; Platelet Count 366 K/uL (130-400); RDW Coefficient of Variation 12.7 % (11.5-14.5); RDW Standard Deviation 44.1 fL (36.4-46.3); Red Blood Count 3.14 M/uL (4.7-6.1); White Blood Count 9.84 K/uL (4.8-10.8)
[2021-04-29 05:52] LABS: BUN Creatinine Ratio 13.3 (10-20); C Reactive Protein 14.3 mg/dl (0-0.29); Calcium 8.3 mg/dl (8.5-10.1); Creatinine Clr Calc Pharmacy 68.4 ml/min; Est GFR (African American) 66.3 ml/min; Est GFR (Non-African American) 57.2 ml/min; Potassium 4.2 mmol/L (3.5-5.1)
--- NOTE | 2021-04-29 08:05 | Hospitalist Progress Note ---
Date of Service April 29, 2021 Assessment & Plan Admission and Anticipated Discharge Date Admission Date: April 25, 2021 Results & Data Results & Data ([facility]) Vital Signs (Past 12 Hours) Vital Signs Temp Pulse Pulse Resp BP BP Pulse Ox 04/29/21 06:13 37.1 C 04/29/21 06:00 80 11 L 128/68 95 04/29/21 05:50 76 12 89 L 04/29/21 05:40 79 12 90 04/29/21 05:30 74 15 91 04/29/21 05:20 78 14 96 04/29/21 05:10 80 11 L 88 L 04/29/21 05:00 74 14 91 04/29/21 04:55 77 13 91 04/29/21 03:53 78 22 121/74 89 L 04/29/21 02:53 77 22 120/74 04/29/21 02:10 80 13 96 04/29/21 02:00 79 19 92 04/29/21 01:56 83 16 95 04/29/21 00:53 86 16 04/29/21 00:30 86 10 L 124/78 04/29/21 00:20 85 4 L 04/29/21 00:10 92 H 8 L 04/29/21 00:00 88 0 L 04/28/21 23:22 37.2 C 89 20 161/86 H 94 Laboratory Results 04/29/21 04/29/21 04/29/21 Range/Units 07:22 05:25 05:25 WBC (4.8-10.8) K/uL RBC (4.7-6.1) M/uL Hgb (14.0-18.0) g/dL Hct (42-52) % MCV (80-100) fL MCH (25-34) pg MCHC (32-36) g/dL RDW Std Deviation (36.4-46.3) fL RDW Coeff of Dandy (11.5-14.5) % Plt Count (130-400) K/uL MPV (7.4-10.4) fL Immature Gran % (Auto) % Neut % (Auto) % Lymph % (Auto) % Kidder % (Auto) % Eos % (Auto) % Baso % (Auto) % Neut # (Auto) (1.4-6.5) K/uL Lymph # (Auto) (1.2-3.4) K/uL Kidder # (Auto) (0.11-0.59) K/uL Eos # (Auto) (0-0.5) K/uL Baso # (Auto) (0-0.2) K/uL Immature Gran # (Auto) (0.00-0.02) K/uL ESR 118 H (0-20) mm/hr Sodium 134 L (136-145) mmol/L Potassium 4.2 (3.5-5.1) mmol/L Chloride 104 (98-107) mmol/L Carbon Dioxide 28 (21-32) mmol/L Anion Gap 2.0 L (3-11) BUN 18 (7-18) mg/dl Creatinine 1.34 (0.6-1.4) mg/dl Est Cr Clr Drug Dosing 68.4 ml/min Est GFR ( Amer) 66.3 ml/min Est GFR (Non-Af Amer) 57.2 ml/min BUN/Creatinine Ratio 13.3 (10-20) Glucose 161 H (70-99) mg/dl POC Glucose 147 H (70-99) mg/dl Calcium 8.3 L (8.5-10.1) mg/dl Total Bilirubin (0.2-1) mg/dl AST (15-37) U/L ALT (12-78) U/L Alkaline Phosphatase (45-117) U/L C-Reactive Protein 14.30 H (0-0.29) mg/dl Total Protein (6.4-8.2) gm/dl Albumin (3.4-5.0) gm/dl Globulin (2.5-4.0) gm/dl Albumin/Globulin Ratio (0.9-2) 04/29/21 04/28/21 04/28/21 Range/Units 05:25 19:57 16:31 WBC 9.84 (4.8-10.8) K/uL RBC 3.14 L (4.7-6.1) M/uL Hgb 10.1 L (14.0-18.0) g/dL Hct 29.7 L (42-52) % MCV 94.6 (80-100) fL MCH 32.2 (25-34) pg MCHC 34.0 (32-36) g/dL RDW Std Deviation 44.1 (36.4-46.3) fL RDW Coeff of Dandy 12.7 (11.5-14.5) % Plt Count 366 (130-400) K/uL MPV 9.0 (7.4-10.4) fL Immature Gran % (Auto) 0.3 % Neut % (Auto) 70.3 % Lymph % (Auto) 17.1 % Kidder % (Auto) 9.8 % Eos % (Auto) 2.2 % Baso % (Auto) 0.3 % Neut # (Auto) 6.92 H (1.4-6.5) K/uL Lymph # (Auto) 1.68 (1.2-3.4) K/uL Kidder # (Auto) 0.96 H (0.11-0.59) K/uL Eos # (Auto) 0.22 (0-0.5) K/uL Baso # (Auto) 0.03 (0-0.2) K/uL Immature Gran # (Auto) 0.03 H (0.00-0.02) K/uL ESR (0-20) mm/hr Sodium (136-145) mmol/L Potassium (3.5-5.1) mmol/L Chloride (98-107) mmol/L Carbon Dioxide (21-32) mmol/L Anion Gap (3-11) BUN (7-18) mg/dl Creatinine (0.6-1.4) mg/dl Est Cr Clr Drug Dosing ml/min Est GFR ( Amer) ml/min Est GFR (Non-Af Amer) ml/min BUN/Creatinine Ratio (10-20) Glucose (70-99) mg/dl POC Glucose 178 H 84 (70-99) mg/dl Calcium (8.5-10.1) mg/dl Total Bilirubin (0.2-1) mg/dl AST (15-37) U/L ALT (12-78) U/L Alkaline Phosphatase (45-117) U/L C-Reactive Protein (0-0.29) mg/dl Total Protein (6.4-8.2) gm/dl Albumin (3.4-5.0) gm/dl Globulin (2.5-4.0) gm/dl Albumin/Globulin Ratio (0.9-2) 04/28/21 04/28/21 04/28/21 Range/Units 11:06 09:04 09:04 WBC 9.82 (4.8-10.8) K/uL RBC 3.46 L (4.7-6.1) M/uL Hgb 10.9 L (14.0-18.0) g/dL Hct 32.1 L (42-52) % MCV 92.8 (80-100) fL MCH 31.5 (25-34) pg MCHC 34.0 (32-36) g/dL RDW Std Deviation 43.6 (36.4-46.3) fL RDW Coeff of Dandy 12.8 (11.5-14.5) % Plt Count 353 (130-400) K/uL MPV 9.4 (7.4-10.4) fL Immature Gran % (Auto) 0.2 % Neut % (Auto) 77.5 % Lymph % (Auto) 12.8 % Kidder % (Auto) 7.3 % Eos % (Auto) 2.0 % Baso % (Auto) 0.2 % Neut # (Auto) 7.60 H (1.4-6.5) K/uL Lymph # (Auto) 1.26 (1.2-3.4) K/uL Kidder # (Auto) 0.72 H (0.11-0.59) K/uL Eos # (Auto) 0.20 (0-0.5) K/uL Baso # (Auto) 0.02 (0-0.2) K/uL Immature Gran # (Auto) 0.02 (0.00-0.02) K/uL ESR (0-20) mm/hr Sodium 136 (136-145) mmol/L Potassium 4.3 (3.5-5.1) mmol/L Chloride 103 (98-107) mmol/L Carbon Dioxide 26 (21-32) mmol/L Anion Gap 7.0 (3-11) BUN 19 H (7-18) mg/dl Creatinine 1.36 (0.6-1.4) mg/dl Est Cr Clr Drug Dosing 67.4 ml/min Est GFR ( Amer) 65.1 ml/min Est GFR (Non-Af Amer) 56.2 ml/min BUN/Creatinine Ratio 14.0 (10-20) Glucose 233 H (70-99) mg/dl POC Glucose 212 H (70-99) mg/dl Calcium 8.6 (8.5-10.1) mg/dl Total Bilirubin 0.3 (0.2-1) mg/dl AST 37 (15-37) U/L ALT 48 (12-78) U/L Alkaline Phosphatase 67 (45-117) U/L C-Reactive Protein (0-0.29) mg/dl Total Protein 7.5 (6.4-8.2) gm/dl Albumin 2.6 L (3.4-5.0) gm/dl Globulin 4.9 H (2.5-4.0) gm/dl Albumin/Globulin Ratio 0.5 L (0.9-2) PG Care Time/CCT Total # of Minutes Spent Total Time Spent with Patient: Total time spent is greater than 50% in coordination of care (as documented) at patient's floor/unit and/or counseling patient: Coding
[2021-04-29] MEDS: INSULIN ASPART 100 UNITS/ML 3 ML PEN SC SCH ×3 (08:22→16:35)
[2021-04-29] MEDS: ASPIRIN 81 MG ECTAB PO SCH (08:23)
[2021-04-29] MEDS: cilostazoL 100 MG TAB PO SCH (08:23)
[2021-04-29] MEDS: GABAPENTIN 800 MG TAB PO SCH ×2 (08:24→13:59)
[2021-04-29] MEDS: COLLAGENASE OINT 30 GM TUBE TOP SCH (08:24)
[2021-04-29] MEDS: INSULIN GLARGINE SOLOSTAR 100 UNITS/ML 3 ML PEN SC SCH (08:25)
[2021-04-29] MEDS: DOCUSATE SODIUM/SENNA 50/8.6MG TAB PO SCH (08:30)
[2021-04-29] MEDS: POLYETHYLENE (MIRALAX) 17 GM PACK PO SCH (08:31)
[2021-04-29] MEDS: FAMOTIDINE 20 MG in SYRINGE 3 ML IV SCH (08:31)
[2021-04-29] MEDS: MoRPHine SULFATE 2 MG/ML CARP IV PRN ×2 (08:32→14:00)
--- NOTE | 2021-04-29 13:11 | Pharmacy Report ---
Pharmacy Glycemic Short Note 2 - Date of Service April 29, 2021 - Glycemic Short BSG Results (Last 24 hours): 04/28/21 04/28/21 04/29/21 16:31 19:57 05:25 Glucose 161 H POC Glucose 84 178 H 04/29/21 04/29/21 07:22 11:41 Glucose POC Glucose 147 H 123 H OUTPATIENT ANTIDIABETIC REGIMEN: * Metformin 1000 mg PO BIDM * Pioglitazone 45 mg PO qAM * HbA1c: 7% (04/15/21) ASSESSMENT: 04/29 * Utilized 51 units of insulin with adequate BSG control * Fasting slightly above goal range this AM, will scale PM dose for possible 25% increase * Prandial BSG within range at lunch, will continue current carb ratio, correction factor was loosened this morning 04/28 * DM is a 60 year old male admitted on 04/25/21 with worsening right foot pain/swelling * CT concerning for developing osteomyelitis * Receiving IV ceftriaxone 2 g q24h (Citrobacter braakii in right foot culture) * Per podiatry note, plan is for 3rd metatarsal head resection/possible 3rd toe amputation * Pharmacy consulted for glycemic management on 04/26/21 - utilizing SC bolus insulin only at this time * BSGs yesterday of 150, 146, 171, and 183 mg/dL - receiving 10 units of SC bolus * Fasting BSG of 138 mg/dL - will add basal today PLAN FOR INPATIENT GLYCEMIC CONTROL: * Hold outpatient oral diabetes medications * Basal insulin - * Lantus 10 units SQ daily * Lantus 10-15 units SC HS * Bolus insulin - tighten * NovoLog per scale ACHS or Q6hrs while NPO * Goal Range: Low 110 mg/dL - High 140 mg/dL * Correction Factor: 25 mg/dL/unit * Nutritional / Prandial insulin per carb ratio of 1 unit per 6 grams CHO consumed PLAN FOR DISCHARGE: * See note from 04/28 for discharge recommendations
[2021-04-29] MEDS: ERTAPENEM SODIUM 1,000 MG in SODIUM CHLORIDE 0.9% 50 ML IV SCH (14:01)
[2021-04-29] MEDS ORDERED: CEFEPIME CONSULT ACTIVE PRN (15:50)
[2021-04-29] MEDS ORDERED: CEFEPIME 2,000 MG in SYRINGE 0 ML IV SCH (16:00)
--- NOTE | 2021-04-29 16:15 | Discharge Summary ---
Date of Service April 29, 2021 Admission HPI Per Admitting Provider Thad Mora is a 60 yo male with a PMHx of CKD, COPD, DM2, GERD, gout, HLD, HTN, and peripheral neuropathy who presented to the hospital for worsening right foot pain and swelling. He reports initial development of a blister which changed to an ulcer on the plantar aspect of the right foot in January (2 months ago) after being treated for a 5th metatarsal fx with a CAM boot. Then treated for cellulitis of the right foot with Clindamycin. Patient admitted on 04/14/21- 04/15/21 for hypoglycemia and a diabetic ulcer of the right foot; he received meropenem and daptomycin while admitted and went back to baseline IV Clindamycin on discharge. He has been continuing IV Clindamycin q8h at home; was also started on po cipro yesterday. Patient went to a podiatry appointment today for follow up but was sent to the ER for worsening pain and swelling of the right foot. He is unable to report the duration of the increased pain and swelling of the foot but states that "it has been since initial injury [in January]." States that he is now unable to move his 3rd toe on the right foot due to swelling. Also reports change in color (darker color) to the toe. Patient states that it is difficult to ambulate secondary to the pain. Pain is described as a constant throbbing with intermittent "hammer smashing" sensation into the foot. He reports associated chills but denies known fevers (patient was febrile in triage). Denies nausea, vomiting, CP, or SOB. While in the ED, a foot CT performed revealed 3.0 x 3.6 cm cutaneous ulceration of the plantar foot centered at the level of the third and fourth metatarsophalangeal joints as well as equivocal osseous erosion involves the plantar aspect of the third metatarsal head, concerning for osteomyelitis. Patient's WBC elevated at 11.49, ESR elevated at 63, MAGDIEL on CKD with Cr of 1.93. Admission Exam Per Admitting Provider GENERAL: No acute distress. Well developed and well nourished. Laying in bed S: PERRLA. EOMI. Anicteric sclerae. HENT: Moist mucous membranes slightly dry. No pharyngeal erythema or exudates. RESPIRATORY: Clear to auscultation bilaterally. No wheezing, rales, or rhonchi. CARDIOVASCULAR: Regular rate and rhythm. + murmur. no /g ABDOMEN: Soft, non-tender and non-distended. Normal bowel sounds. EXTREMITIES: RLE with 1+ edema to mid-correa. Moderate tenderness to palpation t hroughout right calf and foot. Full active range of motion of ankle and all toes. No edema or TTP throughout LLE. SKIN: Warm, dry. Ulceration 3.5 x 2 x 2cm to plantar aspect of right foot with multiple stages of healing; there is purulent discharge that can be expressed from the central aspect of the lesion TTP. odorous discharge. decreased sensation to light touch. calf tenderness. cap refill >2 seconds ecchymosis to 3rd digit within markings (improving slowly) PSYCHIATRIC: Cooperative. Appropriate mood and affect. Principal Diagnosis Osteomyelitis, PAD Discharge Exam GENERAL: No acute distress. Well developed and well nourished. Laying in bed, awaiting consultation with ID provider in room 110 S: PERRLA. EOMI. Anicteric sclerae. HENT: Moist mucous membranes slightly dry. No pharyngeal erythema or exudates. RESPIRATORY: Clear to auscultation bilaterally. No wheezing, rales, or rhonchi. CARDIOVASCULAR: Regular rate and rhythm. + murmur. no /g ABDOMEN: Soft, non-tender and non-distended. Normal bowel sounds. EXTREMITIES: RLE with 1+ edema to mid-correa. Moderate tenderness to palpation throughout right calf and foot. Full active range of motion of ankle and all toes. No increased edema SKIN: Warm, dry. Ulceration 3.5 x 2 x 2cm to plantar aspect of right foot with multiple stages of healing; there is central to lesion TTP, previous odorous discharge (nothing further able to be expressed, but noted minimal on dressing. decreased sensation to light touch. calf tenderness. cap refill >2 seconds, weak pulses R pedal/post tib (able to be found with doppler by nursing) improving slowly, no further black tissue but deep ecchymosis surrounding distal 3rd digit, continues to be within markings PSYCHIATRIC: Cooperative. Appropriate mood and affect. Discharge Data Allergies Allergy/AdvReac Type Severity Reaction Status Date / Time Penicillins Allergy Severe CHILD Verified 04/22/21 10:58 sulfamethoxazole Allergy Intermediate RASH Verified 04/22/21 10:58 trimethoprim Allergy Intermediate RASH Verified 04/22/21 10:58 Consultations 04/25/21 19:37 ED Decision to Admit Stat 04/26/21 08:44 Consult Podiatry Routine 04/26/21 08:56 Consult Vascular Surgery Routine 04/26/21 19:06 Consult Orthopedic Surgery Routine 04/27/21 14:24 Consult Patient Services Routine 04/28/21 07:45 Consult Infectious Diseases Routine Procedures Performed Operation Date: 04/27/21 12:00 Actual Procedures s Ultrasound Vascular Access - Fabian Poe MD p Angio Extremity Unilateral - Fabian Poe MD s SC Select Cath ALEP 3rd Order - Fabian Poe MD s Placement Art Occlusive Device - Fabian Poe MD Ordered Studies 04/25/21 17:17 CT foot RT wo con Stat 04/25/21 20:56 US ankle/brachial index comp Urgent US venous doppler LE RT Urgent 04/26/21 10:30 US arterial duplex LE BI Routine 04/27/21 06:37 CL Cath Imgs for PACS use only Stat Hospital Course (1) Osteomyelitis of right foot: Thad Mora is a 60 yo male with a PMHx of CKD, COPD, DM2, GERD, gout, HLD, HTN, and peripheral neuropathy admitted to the hospital 04/25/21 for worsening right foot pain and swelling with concerns of osteomyelitis and arterial insufficiency. Had been on IV Clinda DETACKER, recently admitted and was on Meropenem/Dapto before demanding discharge when admitted earlier in the month CT RIGHT FOOT: IMPRESSION: * 1. 3.0 x 3.6 cm cutaneous ulceration of the plantar foot centered at the level of the third and fourth metatarsophalangeal joints. * 2. Equivocal osseous erosion involves the plantar aspect of the third metatarsal head. Findings should be correlated clinically to exclude developing osteomyelitis. * 3. Subcutaneous edema suggestive of cellulitis. No abscess. * 4. Subacute to chronic appearing ununited fracture re-demonstrated involving the base of the fifth metatarsal. Recent cx with Citrobacter braakii (of note per discussion with Dr. Torrez office cx after with Klebsiella/Citrobacter both sensitive to ceftriaxone, cefepime, ertapenem Consulted wound care nurse Podiatry consulted -- follows with Dr Torrez. Concerns for arterial thrombus. -->JONELLE: Right 0.57, left 0.68. Ortho covering while out of town Venous Doppler NEGATIVE for DVT Vascular surgery consulted, Dr Poe * Arterial duplex abnormal -- R>L (affected side) * Impression: * 1. Complete occlusion of the mid aspect of the right popliteal artery with reconstitution of the flow within calf arteries via collaterals which shows slow monophasic flow. * 2. Focal area of nonvisualization of the flow and possible occlusion within distal aspect of the left femoral artery. * 3. Increased velocities within the right superior femoral artery and left common femoral artery likely due to stenosis. * 4. Extensive calcified plaques within the posterior urias of bilateral lower extremities. Unable to stent during angio yesterday, but spoke with Dr. Poe who felt chronic 3-vessel disease with good collaterals and could remain on IV abx until Dr. Rubalcava back in [facility] Ortho to contact Dr. Anastasia Rosenthal about patients wish to avoid amputation. Discussed longer term abx may be option x 6 weeks but source control preferred. Has PICC LUE placed last Sunday as he was on Clinda IV and Cipro PO Cefepime x 1 in ER, placed on Ceftriaxone on admission Temp 38.4C on admission Blood cultures NGTD Fever 38.4C afternoon 04/25 --> Based on temp 38.4C on 04/25 and low grade 04/27 and slight elevation in WBC/neutrophils and high chance of resistance of organisms based on discussion with pharmacy, patient switched to Ertapenem on 04/28 ID consult placed and completed day of discharge --> recs for Cefepime 2gm IV Q8 for more antibiotic stewardship reasons and reserve Ertapenem if resistance in the future. Of note, IV abx only stop-gap measure for time being and after surgery would have to restart timing after he has his fem-pop bypass with Dr. Rubalcava once back in [facility]. Consulted Jonathan Young -- fitted CAM boot to mean for the meantime and delivered this morning. ABx to be delivered tomorrow. He already got dose of Ertapenem today and will begin the Cefepime tomorrow. Weekly CBC, CMP, ESR, CRP while on abx Information sent to his office for review and will send d/c summary as well (2) Acute osteomyelitis of right foot: suspected 3rd digit, 2nd to severe PAD IV abx, podiatry/ortho on consult Vascular unable to stent yesterday but felt ok to wait for Dr Rubalcava return given chronicity Has PICC line LUE placed last Sunday, already established with IV company. Had been on Clinda IV DETACKER and recent addition of Cipro as above Cefepime x 1 in ER, placed on Ceftriaxone while inpatient based on c/s, but as above with fevers and discussion with pharmacy and switched to Ertapenem x1 day but decision for Cefepime 2gm IV Q8H at dischage as above after consult with Dr. Larson from ID. Abx arranged for delivery tomorrow. Has LUE PICC placed 04/22 (3) PAD (peripheral artery disease): Hx PAD -- continued on ASA, Pletal daily JONELLE duplex US ordered -- ABNORMAL R>L Venous Doppler of RLE -- NEGATIVE for DVT Vascular on consult as above --> Arterial duplex as above. Unfortunately angiogram without ability for stent placement based on complex calficiations and will require fem-pop bypass as above. Dr Poe felt ok for patient to wait until seen by Dr. Rubalcava vs offer to see if anyone in [place]/other able to see sooner. Patient agreed to wait for Dr. Cantu i Continued home cilostazol, ASA, and gabapentin (could consider increasing gabapentin) (4) Acute kidney injury: MAGDIEL on CKD III in setting of infection/DM medications Cr 1.9 on admission, was given 1L NSS Lisinopril held and Cr improved to baseline and resumed. Has remained stable on lisinopril and continued at discharge. BP controlled with adequate pain control Avoided nephrotoxic agents, renally dose medications when possible Weekly labs while on IV abx (5) Pain and swelling of right lower leg: secondary to infection Venous Dopppler negative for DVT (6) Diabetes mellitus, type 2: Last A1c 7.0 Home oral agents metformin and pioglitazone held on admission ISS ordered --> BSGs acceptable Hypoglycemia last admission. C-peptide elevated 13.8, suggesting oversecretion by pancreas. BSGs have been acceptable, no hypoglycemia May need to consider further work-up for possible insulinoma if recurs, but could have been accumulation of his glimepiride (was on glimepiride, pioglitazone and metformin 1000mg BID DETACKER --> resumed at discharge) Pharmacy recs for additional PO anti-hyperglycemic agent, however given recent admission for persistant hypoglycemia requiring IV hydrocortisone which likely worsened foot infection, would keep current regimen as he is on with his Metformin and pioglitazone (7) Wound of foot: f/u wound care/podiatry at d/c as well as vascular as above orthotics fit for CAM boot while inpatient (8) Hyperlipidemia: Continued home rosuvastatin (9) Hypertension: Chronic. Lisinopril held for MAGDIEL/post-angio as above BP stable Home medications continued at discharge (10) Tobacco abuse: Continued counseling. D id not want nicotine patch/gum. Highly recommended abstaining from tobacco given severe PAD (11) Diabetic foot ulcer: f/u wound care orthotics consulted -- pt had appt tomorrow but Jonathan was able to fit for CAM boot and bring in day of discharge Discharging home on Cefepime 2gm IV Q8H -- length TBD based on timing of re-vascularization with Khadar once back in [facility]. Weekly CBC, CMP, ESR, CRP while on Cefepime CM following and arranged for abx to be delivered tomorrow morning Continue to utilize CAM boot when up and walking around Follow-up with wound care, podiatry for further discussion about amputation once blood supply re-established Total Time Total Time Spent Total Time Spent (In Minutes): 120 Discharge Plan Discharge Items Patient Disposition: Home - Home Health Services Reason For Visit: OSTEOMYELITIS Discharge Diagnosis: Osteomyelitis, Peripheral Arterial Disease Condition on Discharge: Good Goals: You have been hospitalized for an acute medical problem. During your stay at [facility], we have made an effort to correct the problem that brought you to the hospital while keeping you as comfortable as possible. M edications were used to bring your condition under control and your discharge instructions will include directions for any medications you should take after leaving the hospital. Please make sure you see your Primary Care Provider as part of your follow up plan. Activity: Resume your previous activity Activity Comment: please use CAM boot when up and walking Non-emergency contact: Primary Care Provider, Surgeon and Specialist Call non-emergency contact if: you have any medication questions, your symptoms worsen and your pain is not controlled Follow-up/Referrals: Meng Rubalcava MD [Physician] - (A referral for you to be seen by a vascular surgeon has been placed - Dr. Rubalcava with [facility], located in [place]. Dr. Rubalcava's office will call you to schedule an appointment. If you do not hear from them within one week, please call their office at #[phone] to follow up.) Michoacano Shabazz DO [Primary Care Provider] - 05/10/21 3:30 pm Mesha Johns DO [Resident] - (1 week) Diet: Carb Consistent or DM2 and Heart Healthy Addtl Attending Provider Instructions: You have been hospitalized for infection in your foot. Imaging was done and it appears the infection is to the bone in your 3rd toe. Podiatry and orthopedics were on to monitor progress and vascular surgery was consulted to attempt to re-establish vascular supply. Unfortunately your peripheral arterial disease is chronic and complex and it was felt you will need femoral-popliteal artery bypass, which can be done by Dr. Rubalcava when back in town. Consultation was undertaken with infectious disease provider to see about what a ntibiotic would be best in the interim. Please note, this is a temporary stop-measure until we can get vascular supply re-established and then you can determine with Dr. Torrez if continued antib iotics would be warranted to see if this can be healed without surgery, however it is possible this will not be the case and you may need surgery regardless but we will need to monitor your response to treatment. You have been sent prescription for pain medication and have been sent a couple pills for the interim until you can pick this up. You should consider over the counter stool softeners if you have any issues with constiption. Your blood sugars have been controlled and it is recommended to continue on current medications and monitor your levels at home. You have been arranged for Cefepime 2gm IV every EIGHT hours until vascular can do the bypass and evaluate after. You will have weekly labs drawn while on these antibiotics to ensure your blood counts and kidney function remain stable. It is recommended to quit smoking as this is a significant risk factor for your current vascular disease. A venous doppler was done to ensure no blood clot, and this was NEGATIVE. You have been fitted with a CAM boot by orthotics and should continue to use this to take pressure off your foot. I have had the case management department send all of your information to Dr Rubalcava's office and will forward the discharge summary as well so that you can get in as soon as possible with their office. Please return to the emergency department with any fever, chills, chest pain, shortness of breath, increased pain/redness/swelling or drainage. You will also need to continue follow up with podiatry and should check in with your primary care in the next week to monitor your progress after discharge. It has been a pleasure being a part of the medical team providing for you while you have been in the hospital. Pending Studies at Discharge: No Stand-Alone Forms: [facility], Opioid Pain Management, Smoking Cessation Medications and DC Order Prescriptions: New oxycodone 5 mg Tablet 5 - 10 mg PO Q4H PRN (Reason: pain) Qty: 14 RF: 0 cefepime 2 gram recon soln 2 g IV Q8H Qty: 10 RF: 0 Continued Santyl 250 unit/gram ointment 1 applic topical DAILY 14 Days Qty: 30 RF: 2 gentamicin 0.1 % ointment 1 applic topical DAILY 14 Days Qty: 30 RF: 1 cilostazol 100 mg Tablet 100 mg PO DAILY RF: 0 pioglitazone [Actos] 45 mg Tablet 45 mg PO QAM RF: 0 gabapentin 800 mg Tablet 800 mg PO TID RF: 0 metformin 1,000 mg Tablet 1,000 mg PO BID RF: 0 aspirin 81 mg Tablet,Chewable 81 mg PO QAM RF: 0 rosuvastatin [Crestor] 20 mg Tablet 20 mg PO HS RF: 0 lisinopril 5 mg tablet 5 mg PO .QHS RF: 0 metoprolol succinate 50 mg tablet extended release 24 hr 50 mg PO QPM RF: 0 (DME) lancets [OneTouch Delica Lancets] 30 gauge misc See Rx Instructions .Route Qty: 100 RF: 0 (DME) blood-glucose meter [OneTouch Verio Meter] Misc See Rx Instructions .Route Qty: 1 RF: 0 (DME) OneTouch Verio test strips Strip See Rx Instructions .Route Qty: 50 RF: 0 Glucagon Emergency Kit (human) 1 mg recon soln 1 mg IM ONCE Qty: 1 RF: 0 Discontinued clindamycin HCl 150 mg capsule 450 mg PO Q8 RF: 0 Discharge Orders: Discharge Order (Routine); Ordered 04/29/21 Ordered By: Lizzie Chang Admission Data Admit Date/Time: 04/25/21 20:56 Attending Provider: Tuyet Yadav Admit Provider: Mesha Johns Primary Care Provider: Michoacano Shabazz Other Providers: [facility],Home [facility] ; Hari Burks ; Dalia Torrez ; Fabian Poe ; Jimenez Agee ; Frankie Aquino ; Colin Markham ; Magdy Shetty I. ; Vikram Larson II ; Yvrose Richardson ; Geronimo Diaz Other Interventions: Discharge Summary Assessment (RN) Last Done: 04/29/21 17:00 Supervising Physician Co-Signing Physician Notes PA Supervision Note: I personally saw and examined the patient. I verified all cantu points and agree with ABIGAIL Chang with the following exceptions and/or additions: S-feeling better, anxious for discharge, no pain, no CP or SOB O- Vitals reviewed GENERAL: No acute distress. Well developed and well nourished. HEENT: PERRL Anicteric sclerae. RESPIRATORY: Clear to auscultation bilaterally. No wheezing, rales, or rhonchi. CARDIOVASCULAR: Regular rate and rhythm ABDOMEN: Soft, non-tender and non-distended. Normal bowel sounds. EXTREMITIES: RLE with 1+ edema to mid-correa. Moderate tenderness to palpation throughout right calf and foot. Full active range of motion of ankle and all toes. No increased edema SKIN: Warm, dry. Ulceration 3.5 x 2 x 2cm to plantar aspect of right foot with multiple stages of healing; there is central to lesion TTP, (nothing further able to be expressed, but noted minimal on dressing. decreased sensation to light touch. calf tenderness. cap refill >2 seconds, weak pulses R pedal/post tib (able to be found with doppler by nursing) improving slowly, no further black tissue but deep ecchymosis surrounding distal 3rd digit, continues to be within markings PSYCHIATRIC: Cooperative. Appropriate mood and affect. A/P-stable for disciahrge to home on IV Cefepime, await revascularization and outpt Podiatry follow up Coding Level of Care Code D/C DAY MANAGEMENT >30 MINS Diagnoses Osteomyelitis of right foot M86.9 Acute osteomyelitis of right foot M86.171 PAD (peripheral artery disease) I73.9 Acute kidney injury N17.9 Pain and swelling of right lower leg M79.661; M79.89 Diabetes mellitus, type 2 E11.9 Wound of foot S91.309A Hyperlipidemia E78.5 Hypertension I10 Tobacco abuse Z72.0 Diabetic foot ulcer E13.621; L97.419 Diabetes mellitus type: other specified (including JONNATHAN) Diabetic foot ulcer location: midfoot Laterality: right Non-pressure ulcer stage: unspecified non-pressure ulcer stage
[2021-04-29] MEDS ORDERED: oxyCODONE IR HOME PACK PO ONE (16:30)
== END 2021-04-29 18:07 | disposition home health service (06) | DRG 638 ==
LOC: ED 14:53 → SUATTDRO 20:56 → 3W 20:56 → 2S 04-27 16:52 → 1E 04-29 00:15
PROC: CLB.AEU (2021-04-27 12:00)